=== PATIENT | male | born 1960 | race Caucasian/White ===

== ENCOUNTER 2017-04-10 16:06 | Emergency (ER) | payer BC, OTHER ==
[~2017-04-10] VITALS: Ht 177.8 cm; Wt 62.1 kg
[~2017-04-10 16:06] MED LIST: CARB200T14 PO; FURO10S PO; LISI-357 PO; METO25 PO; TRAM50 PO
[2017-04-10 16:10] VITALS: BP 143/83; PULSE 84; RESP 18; TEMP 97.4; O2SAT 99
[2017-04-10] MEDS ORDERED: METO25TA3 PO (16:26)
[2017-04-10] MEDS ORDERED: LEDI1TAB PO (16:26)
[2017-04-10] MEDS ORDERED: FURO40TA PO (16:26)
[2017-04-10] MEDS ORDERED: GABA600T PO (16:26)
[2017-04-10] MEDS ORDERED: LISI-519 PO (16:26)
--- NOTE | 2017-04-10 16:29 | PD ---
HPI Chief Complaint: Cold / Flu Symptoms Time Seen by Provider: 16:22 Travel History International Travel<30 days: No Contact w/Intl Traveler<30days: No Traveled to known affect area: No History of Present Illness HPI 57-year-old male presents to the emergency room for evaluation of sore throat, laryngitis, cough, congestion for the past 1.5 weeks. Patient states symptoms started off as a sore throat and progressed since then. He took his temperature at onset of symptoms but states he never had a temperature. He has had chills and sweats. He states cough is productive of green sputum. Patient has been eating and drinking okay but has a mildly decreased appetite. Patient has not been taken anything [id number] for his symptoms. [facility] Past Medical History Hx Anticoagulant Therapy: No Cardiovascular Problems: Yes (HTN, ENDOCARDITIS) Diabetes: No Diminished Hearing: No Hepatitis: Yes (HEP C) Herniated Disk: Yes (HAD BULGING DISC ONLY) Kidney Stones: Yes Social History Alcohol Use: No Tobacco Use: Yes (10/25 ppd) Substance Use: Yes (heroin abuse, IVDU) Allergies-Medications (Allergen,Severity, Reaction): Coded Allergies: No Known Allergies (Unverified , 04/10/17) Reported Meds & Prescriptions Reported Meds & Active Scripts Active Reported Furosemide 40 Mg Tab 40 Mg PO DAILY Gabapentin 600 Mg Tab 600 Mg PO TID Metoprolol Tartrate 25 Mg Tab 20 Mg PO DAILY Lisinopril 5 Mg Tab 5 Mg PO DAILY Harvoni 90-400 mg Tablet (Ledipasvir/Sofosbuvir) 1 Each Tablet PO DAILY Review of Systems Except as stated in HPI: all other systems reviewed are Neg Physical Exam Narrative GENERAL: Well-nourished, well-developed male in no acute distress. Afebrile. Ambulatory. SKIN: Focused skin assessment warm/dry. HEAD: Normocephalic. EYES: No scleral icterus. No injection or drainage. ENT: Mucosa pink and moist. No erythema or exudates. No uvular edema. No uvular , palatal, or tonsillar deviation. Airway patent. Nasal turbinates appear normal without nasal blood, purulent drainage or septal hematoma. EARS: Bilateral pinnae and external canals appear within normal limits. Bilateral tympanic membranes without erythema, dullness or perforation. NECK: Supple, trachea midline. No JVD or lymphadenopathy. CARDIOVASCULAR: Regular rate and rhythm without murmurs, gallops, or rubs. RESPIRATORY: Breath sounds equal bilaterally. No accessory muscle use. No crackles, rales, wheezes, or rhonchi. Data Data Last Documented VS Vital Signs Date Time Temp Pulse Resp B/P Pulse Ox O2 Delivery O2 Flow Rate FiO2 04/10/17 16:10 97.4 84 18 143/83 99 Orders Chest, Pa & Lat (04/10/17 ) MDM Medical Decision Making Medical Screen Exam Complete: Yes Emergency Medical Condition: Yes Medical Record Reviewed: Yes Differential Diagnosis Cough, strep, bronchitis, pneumonia Narrative Course 57-year-old male presents to the emergency room for evaluation of productive cough, sore throat, and congestion for the past 1.5 weeks. Patient denies history of fever. He is afebrile and well-appearing in the emergency room. Vital signs stable. No evidence of bacterial infection in the ears, nose, or throat. Lungs sounds clear and equal bilaterally. Chest x-ray is negative. This is viral upper respiratory infection. Patient was discharged with Tessalon Perles and told to follow-up with a primary care physician or return for worsening symptoms. He understands and agrees to plan. Diagnosis Primary Impression: Upper respiratory infection Qualified Code: J00 - Acute nasopharyngitis Referrals: Primary Care Physician Patient Instructions: General Instructions, Upper Respiratory Infection (ED) Additional Instructions: Rest and drink plenty of fluids. Take Tessalon Perles as directed, as needed for cough. Follow-up with a primary care physician. Return to the emergency room for worsening symptoms. Med/Other Pt SpecificInfo: Prescription(s) given Scripts Benzonatate (Tessalon Perles)100 Mg [id number] Mg PO TID PRN (COUGH) 7 Days Ref 0 Prov:Micaela Woodruff MD 04/10/17 Disposition: 01 DISCHARGE HOME Condition: Stable Sissy Killian Apr 10, 2017 16:28
--- NOTE | 2017-04-10 16:52 | RADHPO ---
EXAM DATE/TIME: 04/10/2017 16:34 [facility] COMPARISON: No previous studies available for comparison. INDICATIONS : Productive cough and congestion for over one week. MEDICAL HISTORY : Hypertension. SURGICAL HISTORY : None. ENCOUNTER: Initial ACUITY: 1 week PAIN SCORE: 0/10 LOCATION: Bilateral chest FINDINGS: PA and lateral views of the chest demonstrate the lungs to be symmetrically aerated without evidence of mass, infiltrate or effusion. The cardiomediastinal contours are unremarkable. Osseous structure s are intact. CONCLUSION: 1. No acute cardiopulmonary findings. Shreyas Plummer MD on April 10, 2017 at 16:47 Board Certified Radiologist. This report was verified electronically.
[2017-04-10] MEDS ORDERED: BENZ100 PO (16:59)
== END 2017-04-10 17:07 | disposition home or self-care (01) ==
LOC: PHEFT 16:06
DX: J06.9 Acute upper respiratory infection, unspecified (principal); I10 Essential (primary) hypertension; I38 Endocarditis, valve unspecified; B19.20 Unspecified viral hepatitis C without hepatic coma; F17.210 Nicotine dependence, cigarettes, uncomplicated
CPT/HCPCS: 71020; 99283

== ENCOUNTER 2017-09-19 20:43 | Inpatient (IN) | payer OTHER, MEDICARE ==
[~2017-09-19] VITALS: Ht 175.3 cm; Wt 70.0 kg
[~2017-09-19 20:43] MED LIST changes: +BENZ100 PO; -CARB200T14 PO; -FURO10S PO; +FURO40TA PO; +GABA600T PO; +LEDI1TAB PO; -LISI-357 PO; +LISI-519 PO; -METO25 PO; +METO25TA3 PO; -TRAM50 PO
[2017-09-19 20:48] VITALS: BP 128/93; PULSE 106; RESP 20; TEMP 98.2; O2SAT 99
[2017-09-19] MEDS ORDERED: SODIUM CHLOR 0.9% 1000 ML INJ 1,000 ML IV SCH (20:57)
[2017-09-19] MEDS ORDERED: SODIUM CHLORIDE 0.9% FLUSH 10 ML FLUSH IV FLUSH PRN ×2 (21:00→22:45)
--- NOTE | 2017-09-19 21:06 | PD ---
HPI Chief Complaint: Wound/Suture/Staple Re-Check Time Seen by Provider: 20:57 Travel History International Travel<30 days: No Contact w/Intl Traveler<30days: No Traveled to known affect area: No History of Present Illness HPI Patient is 57-year-old male who presents to emergency room complaints of groin bleeding status post cardiac catheterization today. Patient reports that he has history of endocarditis, reports that he needs a mitral valve replacement, reports that today, his research center partner, Dr. William Stringer performed a diagnostic right and left heart catheterization. He did have this procedure at 12 PM this afternoon. Patient reports that this catheterization was only diagnostic, there was no interventions today. Reports that his only complications after the procedure was bleeding. Reports that his groin would not stop bleeding after the procedure and they kept him at [facility] until 4pm when bleeding did stop. Patient reports that when he went home, he noticed a big bump and bruising to his groin. Patient concerned that he may still be bleeding. Patient reports that he currently is not on any anticoagulants at this time. Denies sensation of lightheadedness or dizziness. Patient did try calling his research center partner kathi to review his symptoms, reports that he did not get a call back. PFSH Past Medical History Hx Anticoagulant Therapy: No Cardiovascular Problems: Yes Diabetes: No Diminished Hearing: No Hepatitis: Yes (HEP C) Herniated Disk: Yes (HAD BULGING DISC ONLY) Kidney Stones: Yes Social History Alcohol Use: No Tobacco Use: Yes (10/25 ppd) Substance Use: No (history of heroin abuse, IVDU; denies x 1 year (stated )) Allergies-Medications (Allergen,Severity, Reaction): Coded Allergies: No Known Allergies (Unverified Adverse Reaction, Unknown, 09/19/17) Reported Meds & Prescriptions Reported Meds & Active Scripts Active Tessalon Perles (Benzonatate) 100 Mg Cap 100 Mg PO TID PRN 7 Days Reported Furosemide 40 Mg Tab 40 Mg PO DAILY Gabapentin 600 Mg Tab 600 Mg PO TID Metoprolol Tartrate 25 Mg Tab 20 Mg PO DAILY Lisinopril 5 Mg Tab 5 Mg PO DAILY Review of Systems General / Constitutional: No: Fever Eyes: No: Visual changes HENT: No: Headaches Cardiovascular: No: Chest Pain or Discomfort Respiratory: No: Shortness of Breath Gastrointestinal: No: Abdominal Pain Genitourinary: No: Dysuria Musculoskeletal: No: Pain Skin: No Rash Neurologic: No: Weakness Psychiatric: No: Depression Endocrine: No: Polydipsia Hematologic/Lymphatic: No: Easy Bruising Physical Exam Narrative GENERAL: moderate distress SKIN: Focused skin assessment warm/dry. HEAD: Atraumatic. Normocephalic. EYES: Pupils equal and round. No scleral icterus. No injection or drainage. ENT: No nasal bleeding or discharge. Mucous membranes pink and moist. NECK: Trachea midline. No JVD. CARDIOVASCULAR: Regular rate and rhythm. No murmur appreciated. RESPIRATORY: No accessory muscle use. Clear to auscultation. Breath sounds equal bilaterally. GASTROINTESTINAL: Abdomen soft, non-tender, nondistended. Hepatic and splenic margins not palpable. Patient with hematoma to the right groin, patient with no external bleeding at this time. Patient has appropriate femoral pulses MUSCULOSKELETAL: No obvious deformities. No clubbing. No cyanosis. No edema. NEUROLOGICAL: Awake and alert. No obvious cranial nerve deficits. Motor grossly within normal limits. Normal speech. PSYCHIATRIC: Appropriate mood and affect; insight and judgment normal. Data Data Last Documented VS Vital Signs Date Time Temp Pulse Resp B/P (MAP) Pulse Ox O2 Delivery O2 Flow Rate FiO2 09/19/17 22:27 95 18 125/87 (100) 98 Room Air 09/19/17 20:48 98.2 Orders Orders Complete Blood Count With Diff (09/19/17 20:57) Comprehensive Metabolic Panel (09/19/17 20:57) Prothrombin Time / Inr (Pt) (09/19/17 20:57) Act Partial Throm Time (Ptt) (09/19/17 20:57) Ct Abd/Pel W Iv Contrast(Rout) (09/19/17 20:57) Iv Access Insert/Monitor (09/19/17 20:57) Ecg Monitoring (09/19/17 20:57) Oximetry (09/19/17 20:57) NPO (09/19/17 20:57) Sodium Chlor 0.9% 1000 Ml Inj (Ns 1000 M (09/19/17 20:57) Sodium Chloride 0.9% Flush (Ns Flush) (09/19/17 21:00) Type And Screen (09/19/17 20:57) Morphine Inj (Morphine Inj) (09/19/17 21:30) Sodium Chlor 0.9% 1000 Ml Inj (Ns 1000 M (09/19/17 21:45) Iohexol 350 Inj (Omnipaque 350 Inj) (09/19/17 21:53) Consult Vascular Surgery (09/19/17 ) Labs Laboratory Tests Test 09/19/17 21:15 White Blood Count 14.5 TH/MM3 Red Blood Count 4.29 MIL/MM3 Hemoglobin 13.1 GM/DL Hematocrit 38.9 % Mean Corpuscular Volume 90.6 FL Mean Corpuscular Hemoglobin 30.5 PG Mean Corpuscular Hemoglobin Concent 33.7 % Red Cell Distribution Width 12.9 % Platelet Count 194 TH/MM3 Mean Platelet Volume 7.2 FL Neutrophils (%) (Auto) 79.5 % Lymphocytes (%) (Auto) 12.6 % Monocytes (%) (Auto) 6.1 % Eosinophils (%) (Auto) 1.2 % Basophils (%) (Auto) 0.6 % Neutrophils # (Auto) 11.5 TH/MM3 Lymphocytes # (Auto) 1.8 TH/MM3 Monocytes # (Auto) 0.9 TH/MM3 Eosinophils # (Auto) 0.2 TH/MM3 Basophils # (Auto) 0.1 TH/MM3 CBC Comment DIFF FINAL Differential Comment Prothrombin Time 11.3 SEC Prothromb Time International Ratio 1.0 RATIO Activated Partial Thromboplast Time 29.3 SEC Blood Urea Nitrogen 12 MG/DL Creatinine 1.00 MG/DL Random Glucose 133 MG/DL Total Protein 6.6 GM/DL Albumin 3.4 GM/DL Calcium Level 8.3 MG/DL Alkaline Phosphatase 86 U/L Aspartate Amino Transf (AST/SGOT) 12 U/L Alanine Aminotransferase (ALT/SGPT) 18 U/L Total Bilirubin 0.4 MG/DL Sodium Level 140 MEQ/L Potassium Level 4.0 MEQ/L Chloride Level 108 MEQ/L Carbon Dioxide Level 22.7 MEQ/L Anion Gap 9 MEQ/L Estimat Glomerular Filtration Rate 77 ML/MIN [facility] Medical Decision Making Medical Screen Exam Complete: Yes Emergency Medical Condition: Yes Medical Record Reviewed: Yes Interpretation(s) EKG at 2215: NSR at 69bpm, qt/qtc: 370/388, no acute st or t wave changes, normal axis Vital Signs Date Time Temp Pulse Resp B/P (MAP) Pulse Ox O2 Delivery O2 Flow Rate FiO2 09/19/17 20:48 98.2 106 20 128/93 (105) 99 Differential Diagnosis retroperitoneal bleed, aneurysm, postop hematoma, anemia Narrative Course During the course of the patients emergency department visit, the patients history, examination, and differential diagnosis were reviewed with the patient. The patient was placed on a playground monitor with oximetry and frequent blood pressure monitoring. The patient had an IV access obtained and blood work sent for analysis. The patient was initially provided IVF. CT of abdomen and pelvis ordered to evaluate for possible retroperitoneal bleed/aneurysm The patients laboratory studies were reviewed and remarkable for: CBC & BMP Diagram 09/19/17 21:15 Total Protein 6.6, Albumin 3.4, Calcium Level 8.3 L, Alkaline Phosphatase 86, Aspartate Amino Transf (AST/SGOT) 12 L, Alanine Aminotransferase (ALT/SGPT) 18, Total Bilirubin 0.4 INR 1.0, HGB reassuring at 13.1 Radiology studies were reviewed and remarkable for: CT of abdomen and pelvis with IV contrast: Right inguinal pseudoaneurysm measuring 1.4 cm in diameter just anterior to the common femoral artery. There is an associated 3.7 x 3.5 cm hematoma medially extending to the right inguinal canal. All findings reviewed with patient in detail, plan to admit him to the hospital for observation Call made to Vascular surgeon Dr. Oropeza, will see patient at [place] tomorrow for intervention of pseudoaneurysm Diagnosis Primary Impression: Hematoma of groin Qualified Codes: S30.1XXA - Contusion of abdominal wall, initial encounter Additional Impression: Postoperative groin pseudoaneurysm Qualified Codes: T81.719A - Complication of unspecified artery following a procedure, not elsewhere classified, initial encounter; I72.8 - Aneurysm of other specified arteries Admitting Information Admitting Physician Requests: Observation Carly Zhou DO Sep 19, 2017 21:06
[2017-09-19 21:23] LABS: AUTOMATED NEUTROPHIL # 11.5 TH/MM3 (1.8-7.7); BASOPHIL # 0.1 TH/MM3 (0-0.2); BASOPHIL % 0.6 % (0.0-2.0); EOSINOPHIL # 0.2 TH/MM3 (0-0.4); EOSINOPHIL % 1.2 % (0.0-4.0); HEMATOCRIT 38.9 % (39.0-51.0); HEMO FLAGS DIFF FINAL; LYMPH % 12.6 % (9.0-44.0); LYMPHOCYTE # 1.8 TH/MM3 (1.0-4.8); MEAN CELL VOLUME 90.6 FL (80.0-100.0); MEAN CORPUSCULAR HEMOGLOBIN 30.5 PG (27.0-34.0); MEAN CORPUSCULAR HGB CONC 33.7 % (32.0-36.0); MONO % 6.1 % (0.0-8.0); NEUT % 79.5 % (16.0-70.0); PLATELET COUNT 194 TH/MM3 (150-450); RED BLOOD COUNT 4.29 MIL/MM3 (4.50-5.90); RED CELL DISTRIBUTION WIDTH 12.9 % (11.6-17.2); WHITE BLOOD COUNT 14.5 TH/MM3 (4.0-11.0)
[2017-09-19] MEDS ORDERED: MORPHINE SULFATE 4 MG/ML INJ IV PUSH ONE (21:30)
[2017-09-19 21:31] LABS: CHLORIDE 108 MEQ/L (98-107); SODIUM (NA) 140 MEQ/L (136-145)
[2017-09-19 21:35] LABS: ANION GAP 9 MEQ/L (5-15); BICARBONATE 22.7 MEQ/L (21.0-32.0); BLOOD UREA NITROGEN 12 MG/DL (7-18)
[2017-09-19 21:37] LABS: APTT (PATIENT) 29.3 SEC (24.3-30.1); PROTHROMBIN TIME - PATIENT 11.3 SEC (9.8-11.6)
[2017-09-19 21:38] LABS: ALT (GPT) 18 U/L (12-78); AST (GOT) 12 U/L (15-37); GLOMERULAR FILTRATION RATE 77 ML/MIN (>89)
[2017-09-19 21:40] LABS: TOTAL BILIRUBIN ADULT 0.4 MG/DL (0.2-1.0)
[2017-09-19 21:41] LABS: ALKALINE PHOSPHATASE 86 U/L (45-117)
[2017-09-19 21:42] VITALS: BP 143/79; PULSE 90; RESP 20; O2SAT 100
[2017-09-19] MEDS ORDERED: SODIUM CHLOR 0.9% 1000 ML INJ 1,000 ML IV ONE (21:45)
[2017-09-19] MEDS ORDERED: IOHEXOL 350 MG/ML 10 ML VIAL (for RAD DIAG) IVCONTRAST ONE (21:53)
--- NOTE | 2017-09-19 22:19 | RADRPT ---
EXAM DATE/TIME: 09/19/2017 21:46 [facility] COMPARISON: CT ABDOMEN & PELVIS W CONTRAST, December 23, 2015, 22:27. INDICATIONS : Right groin hematoma and pain status post cardiac catheterization today. IV CONTRAST: 100 cc Omnipaque 350 (iohexol) IV ORAL CONTRAST: No oral contrast ingested. RADIATION DOSE: 10.03 CTDIvol (mGy) MEDICAL HISTORY : Renal calculi. Hepatitis C. SURGICAL HISTORY : Cardiac catheterization. ENCOUNTER: Initial ACUITY: 1 day PAIN SCALE: 8/10 LOCATION: Right inguinal TECHNIQUE: Volumetric scanning of the abdomen and pelvis was performed. Using automated exposure control and ad justment of the mA and/or kV according to patient size, radiation dose was kept as low as reasonably achievable to obtain optimal diagnostic quality images. DICOM format image data is available electro nically for review and comparison. FINDINGS: LOWER LUNGS: The visualized lower lungs are clear. LIVER: Homogeneous density without lesion. There is no dilation of the biliary tree. No calcified gallston es. SPLEEN: Normal size without lesion. PANCREAS: Within normal limits. KIDNEYS: Normal in size and shape. There is no mass, stone or hydronephrosis. ADRENAL GLANDS: Within normal limits. VASCULAR: There is no aortic aneurysm. Right inguinal pseudoaneurysm measuring 1.4 cm in diameter. BOWEL/MESENTERY: The stomach, small bowel, and colon demonstrate no acute abnormality. There is no free intraperitone al air or fluid. ABDOMINAL WALL: Within normal limits. RETROPERITONEUM: There is no lymphadenopathy. BLADDER: No wall thickening or mass. REPRODUCTIVE: Within normal limits. INGUINAL: Right inguinal pseudoaneurysm measuring 1.4 cm in diameter just anterior to the common femoral artery . Associated 3.7 x 3.5 cm hematoma medially extending into the right inguinal canal. MUSCULOSKELETAL: Mild dextroscoliosis of the thoracolumbar spine. CONCLUSION: 1. CT confirms the presence of a 1.4 cm pseudoaneurysm just anterior to the right common femoral davide ry with an associated right inguinal 3.7 x 3.5 cm hematoma medially extending towards the right ingui nal canal. 2. No acute intraperitoneal or pelvic process. Rick Enamorado MD on September 19, 2017 at 22:12 Board Certified Radiologist. This report was verified electronically.
[2017-09-19 22:27] VITALS: BP 125/87; PULSE 95; RESP 18; O2SAT 98
[2017-09-19] MEDS ORDERED: NALOXONE HCL 0.4 MG/ML AMP IV PUSH PRN (22:45)
[2017-09-19 23:37] VITALS: BP 140/85; PULSE 85; RESP 18; TEMP 98.2; O2SAT 98
[2017-09-19 23:45] VITALS: BP 137/79; PULSE 78; RESP 20; TEMP 97.9; O2SAT 100
[2017-09-20 00:13] VITALS: PULSE 71
[2017-09-20] MEDS ORDERED: ZANA2CAP PO (00:16)
[2017-09-20] MEDS ORDERED: GABA800T PO (00:18)
[2017-09-20] MEDS: MORPHINE SULFATE 2 MG/ML INJ IV PUSH PRN ×7 (01:06→23:12)
[2017-09-20 04:30] VITALS: BP 120/65; PULSE 78; RESP 20; TEMP 98; O2SAT 97
[2017-09-20 06:06] LABS: AUTOMATED NEUTROPHIL # 6.7 TH/MM3 (1.8-7.7); BASOPHIL # 0.1 TH/MM3 (0-0.2); BASOPHIL % 0.6 % (0.0-2.0); EOSINOPHIL # 0.2 TH/MM3 (0-0.4); EOSINOPHIL % 2.4 % (0.0-4.0); HEMATOCRIT 35.1 % (39.0-51.0); HEMO FLAGS DIFF FINAL; LYMPH % 21.4 % (9.0-44.0); LYMPHOCYTE # 2.2 TH/MM3 (1.0-4.8); MEAN CORPUSCULAR HEMOGLOBIN 29.7 PG (27.0-34.0); MONO % 9.3 % (0.0-8.0); NEUT % 66.3 % (16.0-70.0); PLATELET COUNT 178 TH/MM3 (150-450); WHITE BLOOD COUNT 10.2 TH/MM3 (4.0-11.0)
[2017-09-20 06:22] LABS: POTASSIUM 4.1 MEQ/L (3.5-5.1)
[2017-09-20 06:27] LABS: BICARBONATE 24.4 MEQ/L (21.0-32.0)
[2017-09-20 08:00] VITALS: BP 118/67; PULSE 77; RESP 16; TEMP 97.2; O2SAT 97
[2017-09-20] MEDS: SODIUM CHLORIDE 0.9% FLUSH 10 ML FLUSH IV FLUSH SCH ×2 (08:30→21:00)
--- NOTE | 2017-09-20 08:56 | PD.CAR.PN ---
CVT Progress Note Subjective/Hospital Course: Patient with small pseudoaneurysm of the right groin Will inject thrombin today in the radiology suite Full consult to follow Chintan Chen Objective: Vital Signs Date Time Temp Pulse Resp B/P (MAP) Pulse Ox O2 Delivery O2 Flow Rate FiO2 09/20/17 04:30 98.0 78 20 120/65 (83) 97 09/20/17 00:13 71 09/19/17 23:45 97.9 78 20 137/79 (98) 100 09/19/17 23:38 09/19/17 23:37 98.2 85 18 140/85 (103) 98 Room Air 09/19/17 22:27 95 18 125/87 (100) 98 Room Air 09/19/17 21:42 90 20 143/79 (100) 100 Room Air 09/19/17 20:48 98.2 106 20 128/93 (105) 99 Labs: Laboratory Tests Test 09/19/17 21:15 09/20/17 05:38 White Blood Count 14.5 TH/MM3 (4.0-11.0) 10.2 TH/MM3 (4.0-11.0) Red Blood Count 4.29 MIL/MM3 (4.50-5.90) 3.90 MIL/MM3 (4.50-5.90) Hemoglobin 13.1 GM/DL (13.0-17.0) 11.6 GM/DL (13.0-17.0) Hematocrit 38.9 % (39.0-51.0) 35.1 % (39.0-51.0) Mean Corpuscular Volume 90.6 FL (80.0-100.0) 90.0 FL (80.0-100.0) Mean Corpuscular Hemoglobin 30.5 PG (27.0-34.0) 29.7 PG (27.0-34.0) Mean Corpuscular Hemoglobin Concent 33.7 % (32.0-36.0) 33.0 % (32.0-36.0) Red Cell Distribution Width 12.9 % (11.6-17.2) 13.0 % (11.6-17.2) Platelet Count 194 TH/MM3 (150-450) 178 TH/MM3 (150-450) Mean Platelet Volume 7.2 FL (7.0-11.0) 7.6 FL (7.0-11.0) Neutrophils (%) (Auto) 79.5 % (16.0-70.0) 66.3 % (16.0-70.0) Lymphocytes (%) (Auto) 12.6 % (9.0-44.0) 21.4 % (9.0-44.0) Monocytes (%) (Auto) 6.1 % (0.0-8.0) 9.3 % (0.0-8.0) Eosinophils (%) (Auto) 1.2 % (0.0-4.0) 2.4 % (0.0-4.0) Basophils (%) (Auto) 0.6 % (0.0-2.0) 0.6 % (0.0-2.0) Neutrophils # (Auto) 11.5 TH/MM3 (1.8-7.7) 6.7 TH/MM3 (1.8-7.7) Lymphocytes # (Auto) 1.8 TH/MM3 (1.0-4.8) 2.2 TH/MM3 (1.0-4.8) Monocytes # (Auto) 0.9 TH/MM3 (0-0.9) 1.0 TH/MM3 (0-0.9) Eosinophils # (Auto) 0.2 TH/MM3 (0-0.4) 0.2 TH/MM3 (0-0.4) Basophils # (Auto) 0.1 TH/MM3 (0-0.2) 0.1 TH/MM3 (0-0.2) CBC Comment DIFF FINAL DIFF FINAL Differential Comment Prothrombin Time 11.3 SEC (9.8-11.6) Prothromb Time International Ratio 1.0 RATIO Activated Partial Thromboplast Time 29.3 SEC (24.3-30.1) Blood Urea Nitrogen 12 MG/DL (7-18) 9 MG/DL (7-18) Creatinine 1.00 MG/DL (0.60-1.30) 0.85 MG/DL (0.60-1.30) Random Glucose 133 MG/DL (74-106) 91 MG/DL (74-106) Total Protein 6.6 GM/DL (6.4-8.2) Albumin 3.4 GM/DL (3.4-5.0) Calcium Level 8.3 MG/DL (8.5-10.1) 7.7 MG/DL (8.5-10.1) Alkaline Phosphatase 86 U/L (45-117) Aspartate Amino Transf (AST/SGOT) 12 U/L (15-37) Alanine Aminotransferase (ALT/SGPT) 18 U/L (12-78) Total Bilirubin 0.4 MG/DL (0.2-1.0) Sodium Level 140 MEQ/L (136-145) 143 MEQ/L (136-145) Potassium Level 4.0 MEQ/L (3.5-5.1) 4.1 MEQ/L (3.5-5.1) Chloride Level 108 MEQ/L (98-107) 111 MEQ/L (98-107) Carbon Dioxide Level 22.7 MEQ/L (21.0-32.0) 24.4 MEQ/L (21.0-32.0) Anion Gap 9 MEQ/L (5-15) 8 MEQ/L (5-15) Estimat Glomerular Filtration Rate 77 ML/MIN (>89) 93 ML/MIN (>89) Result Diagram: 09/20/17 0538 09/20/17 0538 Debora Oropeza MD Sep 20, 2017 08:56
[2017-09-20 12:00] VITALS: BP 143/77; PULSE 87; RESP 18; TEMP 97.8; O2SAT 99
[2017-09-20] MEDS ORDERED: BENZONATATE 100 MG CAP PO PRN (13:30)
[2017-09-20] MEDS ORDERED: METOPROLOL TARTRATE 25 MG TAB PO SCH (13:30)
--- NOTE | 2017-09-20 13:35 | HHI.HP ---
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 He is in the process of having this evaluated by his yard worker. He had a cardiac catheterization done at another facility and had some excessive bleeding post procedure per his report and when he got home he had increased bleeding and bruising. Came to the emergency room with some swelling and came to the medical floor for observation overnight. He is not taking any blood thinners. He does have a history of endocarditis in the past and had some valvular dysfunction likely the mitral valve per his report and is expected to have some valvular surgery in the future. Here he has not had any further bleeding. He notes no fevers or chills. ID nausea or vomiting. Does report some vague discomfort in the level of the groin with associated edema and bruising visible. Review of Systems Constitutional: DENIES: Diaphoretic episodes, Fatigue, Fever, Weight gain, Weight loss, Chills, Dizziness, Change in appetite, Night Sweats Endocrine: DENIES: Heat/cold intolerance, Polydipsia, Polyuria, Polyphagia Eyes: DENIES: Blurred vision, Diplopia, Eye inflammation, Eye pain, Vision loss , Photosensitivity, Double Vision Ears, nose, mouth, throat: DENIES: Tinnitus, Hearing loss, Vertigo, Nasal discharge, Oral lesions, Throat pain, Hoarseness, Ear Pain, Running Nose, Epistaxis, Sinus Pain, Toothache, Odynophagia Cardiovascular: DENIES: Chest pain, Palpitations, Syncope, Dyspnea on Exertion , PND, Lower Extremity Edema, Orthopnea, Claudication Gastrointestinal: DENIES: Abdominal pain, Black stools, Bloody stools, Constipation, Diarrhea, Nausea, Vomiting, Difficulty Swallowing, Anorexia Musculoskeletal: DENIES: Joint pain, Muscle aches, Stiffness, Joint Swelling, Back pain, Neck pain Integumentary: DENIES: Abnormal pigmentation, Nail changes, Pruritus, Rash Hematologic/lymphatic: COMPLAINS OF: Bruising, DENIES: Lymphadenopathy Immunologic/allergic: DENIES: Eczema, Urticaria Neurologic: COMPLAINS OF: Tremor, DENIES: Abnormal gait, Headache, Localized weakness, Paresthesias, Seizures, Speech Problems, Poor Balance Psychiatric: DENIES: Anxiety, Confusion, Mood changes, Depression, Hallucinations, Agitation, Suicidal Ideation, Homicidal Ideation, Delusions Except as stated in HPI: all other systems reviewed are Neg Past Family Social History Past Medical History Hypertension Valvular disease And leg tremors 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 Hepatitis C Past Surgical History Cardiac catheterization Back surgery Reported Medications Reviewed in the EMR Allergies: Coded Allergies: No Known Allergies (Unverified Allergy, Unknown, 09/19/17) Active Ordered Medications Reviewed in the EMR Family History Hypertension Social History Previous IV drug user No alcohol patient smokes half a pack a day Physical Exam Vital Signs Vital Signs Date Time Temp Pulse Resp B/P (MAP) Pulse Ox O2 Delivery O2 Flow Rate FiO2 09/20/17 12:00 97.8 87 18 143/77 (99) 99 09/20/17 08:00 97.2 77 16 118/67 (84) 97 09/20/17 04:30 98.0 78 20 120/65 (83) 97 09/20/17 00:13 71 09/19/17 23:45 97.9 78 20 137/79 (98) 100 09/19/17 23:38 09/19/17 23:37 98.2 85 18 140/85 (103) 98 Room Air 09/19/17 22:27 95 18 125/87 (100) 98 Room Air 09/19/17 21:42 90 20 143/79 (100) 100 Room Air 09/19/17 20:48 98.2 106 20 128/93 (105) 99 Physical Exam GENERAL: This is a well-nourished, well-developed patient, in no apparent distress. SKIN: No rashes, lesions. Cool and dry. There is a large amount of right groin ecchymosis and right scrotal and penile ecchymoses HEAD: Atraumatic. Normocephalic. No temporal or scalp tenderness. EYES: Pupils equal round and reactive. Extraocular motions intact. No scleral icterus. No injection or drainage. ENT: Nose without bleeding, purulent drainage or septal hematoma. Throat without erythema, tonsillar hypertrophy or exudate. Uvula midline. Airway patent. NECK: Trachea midline. No JVD or lymphadenopathy. Supple, nontender, no meningeal signs. CARDIOVASCULAR: Regular rate and rhythm with a significant systolic murmur, and no appreciable gallops, or rubs. RESPIRATORY: Clear to auscultation. Breath sounds equal bilaterally. No wheezes , rales, or rhonchi. GASTROINTESTINAL: Abdomen soft, non-tender, nondistended. No hepato-splenomegaly , or palpable masses. No guarding. MUSCULOSKELETAL: Extremities without clubbing, cyanosis, or edema. No joint tenderness, effusion, or edema noted. No calf tenderness. Negative Homans sign bilaterally. NEUROLOGICAL: Awake and alert. Cranial nerves II through XII intact. Motor and sensory grossly within normal limits. Five out of 5 muscle strength in all muscle groups. Normal speech. Laboratory Laboratory Tests Test 09/19/17 21:15 09/20/17 05:38 White Blood Count 14.5 10.2 Red Blood Count 4.29 3.90 Hemoglobin 13.1 11.6 Hematocrit 38.9 35.1 Mean Corpuscular Volume 90.6 90.0 Mean Corpuscular Hemoglobin 30.5 29.7 Mean Corpuscular Hemoglobin Concent 33.7 33.0 Red Cell Distribution Width 12.9 13.0 Platelet Count 194 178 Mean Platelet Volume 7.2 7.6 Neutrophils (%) (Auto) 79.5 66.3 Lymphocytes (%) (Auto) 12.6 21.4 Monocytes (%) (Auto) 6.1 9.3 Eosinophils (%) (Auto) 1.2 2.4 Basophils (%) (Auto) 0.6 0.6 Neutrophils # (Auto) 11.5 6.7 Lymphocytes # (Auto) 1.8 2.2 Monocytes # (Auto) 0.9 1.0 Eosinophils # (Auto) 0.2 0.2 Basophils # (Auto) 0.1 0.1 CBC Comment DIFF FINAL DIFF FINAL Differential Comment Prothrombin Time 11.3 Prothromb Time International Ratio 1.0 Activated Partial Thromboplast Time 29.3 Blood Urea Nitrogen 12 9 Creatinine 1.00 0.85 Random Glucose 133 91 Total Protein 6.6 Albumin 3.4 Calcium Level 8.3 7.7 Alkaline Phosphatase 86 Aspartate Amino Transf (AST/SGOT) 12 Alanine Aminotransferase (ALT/SGPT) 18 Total Bilirubin 0.4 Sodium Level 140 143 Potassium Level 4.0 4.1 Chloride Level 108 111 Carbon Dioxide Level 22.7 24.4 Anion Gap 9 8 Estimat Glomerular Filtration Rate 77 93 Result Diagram: 09/20/17 0538 09/20/17 0538 Imaging Last Impressions Abdomen/Pelvis CT 09/19/172056 Signed Impressions: Service Date/Time: Tuesday, September 19, 2017 21:46 - CONCLUSION: 1. CT confirms the presence of a 1.4 cm pseudoaneurysm just anterior to the right common femoral artery with an associated right inguinal 3.7 x 3.5 cm hematoma medially extending towards the right inguinal canal. 2. No acute intraperitoneal or pelvic process. MD Dominic Obrien VTE Risk Assessment Dominic VTE Risk Assessment: Mod/High Risk (score >= 2) VTE Pharm Contraindication: Postop bleeding Caprini Risk Assessment Model Point Value = 1 Point Value = 2 Point Value = 3 Point Value = 5 Age 41-60 Minor surgery BMI > 25 kg/m2 Swollen legs Varicose veins or History of unexplained or recurrent spontaneous Oral contraceptives or hormone replacement Sepsis (< 1 month) Serious lung disease, including pneumonia (< 1 month) Abnormal pulmonary function Acute myocardial infarction Congestive heart failure (< 1 month) History of inflammatory bowel disease Medical patient at bed rest Age 61-74 Arthroscopic surgery Major open surgery (> 45 min) Laparoscopic surgery (> 45 min) Malignancy Confined to bed (> 72 hours) Immobilizing plaster cast Central venous access Age >= 75 History of VTE Family history of VTE Factor V Leiden Prothrombin [id number] Lupus anticoagulant Anticardiolipin antibodies Elevated serum homocysteine Heparin-induced thrombocytopenia Other congenital or acquired thrombophilia Stroke (< 1 month) Elective arthroplasty Hip, pelvis, or leg fracture Acute spinal cord injury (< 1 month) Prophylaxis Regimen Total Risk Factor Score Risk Level Prophylaxis Regimen 0-1 Low Early ambulation 2 Moderate Order ONE of the following: *Sequential Compression Device (SCD) *Heparin 5000 units SQ BID 3-4 Higher Order ONE of the following medications: *Heparin 5000 units SQ TID *Enoxaparin/Lovenox 40 mg SQ daily (WT < 150 kg, CrCl > 30 mL/min) *Enoxaparin/Lovenox 30 mg SQ daily (WT < 150 kg, CrCl > 10-29 mL/min) *Enoxaparin/Lovenox 30 mg SQ BID (WT < 150 kg, CrCl > 30 mL/min) AND/OR *Sequential Compression Device (SCD) 5 or more Highest Order ONE of the following medications: *Heparin 5000 units SQ TID (Preferred with Epidurals) *Enoxaparin/Lovenox 40 mg SQ daily (WT < 150 kg, CrCl > 30 mL/min) *Enoxaparin/Lovenox 30 mg SQ daily (WT < 150 kg, CrCl > 10-29 mL/min) *Enoxaparin/Lovenox 30 mg SQ BID (WT < 150 kg, CrCl > 30 mL/min) AND *Sequential Compression Device (SCD) Assessment and Plan Problem List: (1) Postoperative groin pseudoaneurysm ICD Code: T81.719A - Complication of unspecified artery following a procedure, not elsewhere classified, initial encounter; I72.8 - Aneurysm of other specified arteries Status: Acute Plan: Follow clinically For thrombin injection this afternoon. Intervention radiology (2) Mitral valve regurgitation ICD Code: I34.0 - Nonrheumatic mitral (valve) insufficiency Plan: Continue home medications Patient will continue with outpatient follow-up with his yard worker in [place] (3) Limb tremor ICD Code: R25.1 - Tremor, unspecified Plan: Continue Neurontin Stable Assessment and Plan like dc after procedure Discussed Condition With patient, rn Problem Qualifiers (1) Postoperative groin pseudoaneurysm: Qualified Codes: T81.719A - Complication of unspecified artery following a procedure, not elsewhere classified, initial encounter; I72.8 - Aneurysm of other specified arteries Mary Bravo MD Sep 20, 2017 13:35
[2017-09-20] MEDS ORDERED: PILL SPLITTER OTHER PRN (13:45)
[2017-09-20] MEDS: FUROSEMIDE 40 MG TAB PO SCH ×2 (14:19→14:22)
[2017-09-20] MEDS: LISINOPRIL 5 MG TAB PO SCH (14:20)
--- NOTE | 2017-09-20 15:59 | HHI.DCPOC ---
Discharge Care Plan Diagnosis: (1) Postoperative groin pseudoaneurysm Goals to Promote Your Health * To prevent worsening of your condition and complications * To maintain your health at the optimal level Directions to Meet Your Goals Take your medications as prescribed Follow your dietary instruction Follow activity as directed Keep your appointments as scheduled Take your immunizations and boosters as scheduled If your symptoms worsen call your PCP, if no PCP go to Urgent Care Center or Emergency Room Smoking is Dangerous to Your Health. Avoid second hand smoke Call the 24-hour hour crisis hotline for domestic abuse at Mary Bravo MD Sep 20, 2017 15:59
[2017-09-20 16:00] VITALS: BP 133/74; PULSE 86; RESP 16; TEMP 97.2; O2SAT 97
[2017-09-20] MEDS ORDERED: THROMBIN (TOPICAL) 5,000 UNIT VIAL ONE (16:04)
--- NOTE | 2017-09-20 17:53 | PD.RAD ---
Post Procedure Progress Note Pre Procedure Diagnosis: (1) Postoperative groin pseudoaneurysm Post Procedure Diagnosis: (1) Postoperative groin pseudoaneurysm Procedure Date: Sep 20, 2017 Supervising Radiologist: Morro Scales Proceduralist/Assist: Kiley Eng, RT(R)(), Aysha Swanson RT(R) Estimated blood loss: none Anesthesia: Local Plan of Activity Patient to Unit: Nursing Unit Patient Condition: Good See PACS Report for procedural detail/treatment Vascular-Arterial Procedure Procedure 1 Procedure Site: Right Leg Procedure(s): Embolization Findings: right groin pseudoaneurysm Treament Area: thrombin injection treatment Morro Scales MD Sep 20, 2017 17:53
--- NOTE | 2017-09-20 18:08 | RADRPT ---
EXAM DATE/TIME: 09/20/2017 17:56 COMPARISON: No previous studies available for comparison. INDICATIONS : Patient with right femoral pseudoaneurysm in need of thrombin injection. MEDICAL HISTORY : Hepatitis C, HTN, HLD, Kidney stones, Herniated disc SURGICAL HISTORY : Cardiac catheterization ENCOUNTER: Initial ACUITY: 1 day PAIN SCORE: 6/10 LOCATION: Right groin IMAGE SERIES: 0 ACCESS SITE: Right Femoral artery PROCEDURE: The patient was placed supine on the procedure table. The right groin was prepped in sterile fashion. Full sterile technique was used, including cap, mask, sterile gloves and gown and a large sterile sh eet. Hand hygiene and 2% chlorhexidine and/or betadine/alcohol prep was utilized per protocol for cut aneous antisepsis with appropriate dry time for site. The skin and subcutaneous tissues were infiltra kelli with lidocaine solution. Ultrasound guidance was utilized using sterile gel and sterile probe cov er. Under direct ultrasound guidance, a 21 gauge micropuncture needle was introduced to the right benji in pseudoaneurysm. Under direct sonographic observation, thrombin injection treatment was performed w ith immediate complete thrombosis of the pseudoaneurysm. There is good preservation of flow in the un derlying common femoral artery as well as the proximal visualized SFA and profunda. The patient gustavo ated the procedure well and was returned to the hospital cespedes in stable condition. CONCLUSION: Uncomplicated ultrasound-guided thrombin injection therapy for right groin pseudoaneurysm as describe dKalie Scales MD on September 20, 2017 at 18:03 Board Certified Radiologist. This report was verified electronically.
[2017-09-20] MEDS: GABAPENTIN 400 MG CAP PO SCH (18:10)
[2017-09-20 20:00] VITALS: BP 144/75; PULSE 76; RESP 18; TEMP 98.8; O2SAT 100
[2017-09-20] MEDS ORDERED: ACETAMINOPHEN 325 MG TAB PO ONE (23:45)
[2017-09-21] VITALS: BP 124/73; PULSE 78; RESP 18; TEMP 98; O2SAT 98
[2017-09-21] MEDS: MORPHINE SULFATE 2 MG/ML INJ IV PUSH PRN ×3 (03:00→08:43)
[2017-09-21 04:00] VITALS: BP 128/74; PULSE 78; RESP 18; TEMP 98.2; O2SAT 99
[2017-09-21] MEDS: SODIUM CHLORIDE 0.9% FLUSH 10 ML FLUSH IV FLUSH SCH (07:57)
[2017-09-21 08:00] VITALS: BP 120/64; PULSE 88; RESP 14; TEMP 97.3; O2SAT 99
[2017-09-21] MEDS: LISINOPRIL 5 MG TAB PO SCH (08:29)
[2017-09-21] MEDS: GABAPENTIN 400 MG CAP PO SCH (08:29)
[2017-09-21] MEDS ORDERED: METOPROLOL TARTRATE 25 MG TAB PO SCH (09:00)
== END 2017-09-21 11:12 | disposition home or self-care (01) | DRG 921 ==
LOC: PHED 20:43 → PHEDA 22:40 → INTOOBSV 22:40 → OBSVTOIN 22:40 → PH3A 23:34
PROVIDERS: ADMIT Hospitalist; ATTEND Hospitalist
PROC: 3E053GC Introduction of Other Therapeutic Substance into Peripheral Artery, Percutaneous Approach (ICD-10-PCS; principal; 2017-09-20)
DX: I97.630 Postprocedural hematoma of a circulatory system organ or structure following a cardiac catheterization (principal); I72.8 Aneurysm of other specified arteries; I10 Essential (primary) hypertension; I34.0 Nonrheumatic mitral (valve) insufficiency; R25.1 Tremor, unspecified; B19.20 Unspecified viral hepatitis C without hepatic coma; F17.210 Nicotine dependence, cigarettes, uncomplicated; Z87.442 Personal history of urinary calculi; Y84.0 Cardiac catheterization as the cause of abnormal reaction of the patient, or of later complication, without mention of misadventure at the time of the procedure
CPT/HCPCS: 36002; 74177; 76942; 80048; 80053; 85025; 85610; 85730; 86850; 86900; 86901; 96361; 96374; J2270; J7030; Q9967

== ENCOUNTER 2017-10-03 03:19 | Inpatient (IN) | payer OTHER, MEDICARE ==
[~2017-10-03] VITALS: Ht 175.3 cm; Wt 65.5 kg
[2017-10-03] VITALS (14 sets, daily range): BP systolic 117–167; BP diastolic 59–92; PULSE 73–120; RESP 15–22; TEMP 96.2–98.4; O2SAT 96–100
[~2017-10-03 03:19] MED LIST changes: +GABA800T PO; +ZANA2CAP PO
[2017-10-03] MEDS ORDERED: ONDANSETRON HCL 4 MG/2 ML VIAL IVP ONE (04:00)
[2017-10-03] MEDS ORDERED: SODIUM CHLORIDE 0.9% FLUSH 10 ML FLUSH IV FLUSH PRN (04:00)
[2017-10-03] MEDS ORDERED: KETOROLAC TROMETHAMINE 30 MG/ML (IVP) VIAL IVP ONE (04:00)
--- NOTE | 2017-10-03 04:17 | PD ---
HPI Chief Complaint: GI Complaint Time Seen by Provider: 03:40 Travel History International Travel<30 days: No Contact w/Intl Traveler<30days: No Traveled to known affect area: No History of Present Illness HPI Patient is a 57 year old male recovering IVDA presents to the ER with superpubic pain. States hasn't used in months. Patient states he's been having nausea/vomiting and abdominal cramping for the past two days associated with this mild abdominal cramping. Patient denies diarrhea and endorses some mild constipation. States the pain is moderate to severe but the nausea is worse. Of note patient is being worked up for a valve replacement after endocarditis and sepsis and had cardiac catheterization 2-3 weeks ago complicated by right leg pseudo aneurysm which was treated with thrombin injections. He states that the swelling has been going down slowly. PFSH Past Medical History Hx Anticoagulant Therapy: No Heart Rhythm Problems: No Cancer: No Cardiovascular Problems: Yes (Endocarditis) High Cholesterol: Yes Chest Pain: No Congestive Heart Failure: Yes Diabetes: No Diminished Hearing: No Endocrine: No Gastrointestinal Disorders: Yes (cirrhosis liver) Genitourinary: No Hepatitis: Yes (HEP C) Herniated Disk: Yes (HAD BULGING DISC ONLY) Hypertension: Yes Immune Disorder: No Kidney Stones: Yes Musculoskeletal: Yes Neurologic: Yes (LEG PAIN/TREMMORS) Psychiatric: No Reproductive: No Respiratory: No Immunizations Current: Yes Tetanus Vaccination: Unknown Influenza Vaccination: No Past Surgical History Abdominal Surgery: No Cardiac Surgery: Yes (dianogsitc cardiac cath 09/09/17) Ear Surgery: No Endocrine Surgery: No Eye Surgery: No Genitourinary Surgery: No Gynecologic Surgery: No Oral Surgery: No Thoracic Surgery: No Social History Alcohol Use: No Tobacco Use: Yes (10/25 ppd & USES VAPOR CIGS) Substance Use: Yes (history of heroin abuse, IVDU; denies x 1 year (stated 04/10)) Allergies-Medications (Allergen,Severity, Reaction): Coded Allergies: No Known Allergies (Unverified Allergy, Unknown, 10/03/17) Reported Meds & Prescriptions Reported Meds & Active Scripts Active Reported Gabapentin 800 Mg Tab 800 Mg PO TID Zanaflex (Tizanidine HCl) 2 Mg Cap 2 Mg PO TID Furosemide 40 Mg Tab 40 Mg PO DAILY Metoprolol Tartrate 25 Mg Tab 20 Mg PO DAILY Lisinopril 5 Mg Tab 5 Mg PO DAILY Review of Systems Except as stated in HPI: all other systems reviewed are Neg Physical Exam Narrative GENERAL: WD/WN in nad SKIN: Warm and dry. No rash. HEAD: Atraumatic. Normocephalic. EYES: Pupils equal and round. No scleral icterus. No injection or drainage. ENT: No nasal bleeding or discharge. Mucous membranes pink and moist. NECK: Trachea midline. No JVD. CARDIOVASCULAR: Regular rate and rhythm. 2+ bilaterally equal pulses in all four extremities. No swelling or mass appreciated in the right inguinal area. Minimal ecchymosis to posterior right upper leg. RESPIRATORY: No accessory muscle use. Clear to auscultation. Breath sounds equal bilaterally. GASTROINTESTINAL: Abdomen soft, minimally tender in superpubic region, nondistended. Hepatic and splenic margins not palpable. no rebound no percussive tenderness. MUSCULOSKELETAL: Extremities without clubbing, cyanosis, or edema. No obvious deformities. NEUROLOGICAL: Awake and alert. No obvious cranial nerve deficits. Motor grossly within normal limits. Five out of 5 muscle strength in the arms and legs. Normal speech. PSYCHIATRIC: Appropriate mood and affect; insight and judgment normal. Data Data Last Documented VS Vital Signs Date Time Temp Pulse Resp B/P (MAP) Pulse Ox O2 Delivery O2 Flow Rate FiO2 10/03/17 05:30 18 10/03/17 05:00 86 140/82 (101) 99 Room Air 10/03/17 03:39 97.8 Orders Orders Complete Blood Count With Diff (10/03/17 03:59) Comprehensive Metabolic Panel (10/03/17 03:59) Lipase (10/03/17 03:59) Lactic Acid (10/03/17 03:59) Urinalysis - C+S If Indicated (10/03/17 03:59) Ct Abd/Pel W Iv Contrast(Rout) (10/03/17 03:59) Iv Access Insert/Monitor (10/03/17 03:59) Ecg Monitoring (10/03/17 03:59) Oximetry (10/03/17 03:59) Ondansetron Inj (Zofran Inj) (10/03/17 04:00) Sodium Chloride 0.9% Flush (Ns Flush) (10/03/17 04:00) Ketorolac Inj (Toradol Inj) (10/03/17 04:00) Iohexol 350 Inj (Omnipaque 350 Inj) (10/03/17 04:48) Insert Ng Tube (10/03/17 05:20) Morphine Inj (Morphine Inj) (10/03/17 05:30) Promethazine Inj (Phenergan Inj) (10/03/17 05:30) Admit Order (Ed Use Only) (10/03/17 ) Admit To Inpatient (10/03/17 ) Vital Signs (Adult) Q4H (10/03/17 05:34) Activity Oob With Assistance (10/03/17 05:34) Diet Npo (10/03/17 Breakfast) Sodium Chlor 0.9% 1000 Ml Inj (Ns 1000 M (10/03/17 05:34) Sodium Chloride 0.9% Flush (Ns Flush) (10/03/17 05:45) Sodium Chloride 0.9% Flush (Ns Flush) (10/03/17 09:00) Ondansetron Inj (Zofran Inj) (10/03/17 05:45) Basic Metabolic Panel (Bmp) (10/04/17 06:00) Complete Blood Count With Diff (10/04/17 06:00) Case Management Consult (10/03/17 05:34) Scd Bilateral/Knee High GREGORY.BID (10/03/17 05:34) Naloxone Inj (Narcan Inj) (10/03/17 05:45) Docusate Sodium-Senna (Filomena-Colace) (10/03/17 09:00) Magnesium Hydroxide Liq (Milk Of Magnesi (10/03/17 05:45) Sennosides (Senokot) (10/03/17 05:45) Bisacodyl Supp (Dulcolax Supp) (10/03/17 05:45) Lactulose Liq (Lactulose Liq) (10/03/17 05:45) Inpatient Certification (10/03/17 ) Consult General Surgery (10/03/17 ) Labs Laboratory Tests Test 10/03/17 04:10 White Blood Count 13.1 TH/MM3 Red Blood Count 4.99 MIL/MM3 Hemoglobin 15.1 GM/DL Hematocrit 46.2 % Mean Corpuscular Volume 92.6 FL Mean Corpuscular Hemoglobin 30.3 PG Mean Corpuscular Hemoglobin Concent 32.7 % Red Cell Distribution Width 13.7 % Platelet Count 358 TH/MM3 Mean Platelet Volume 7.1 FL Neutrophils (%) (Auto) 82.1 % Lymphocytes (%) (Auto) 9.1 % Monocytes (%) (Auto) 6.4 % Eosinophils (%) (Auto) 0.3 % Basophils (%) (Auto) 2.1 % Neutrophils # (Auto) 10.8 TH/MM3 Lymphocytes # (Auto) 1.2 TH/MM3 Monocytes # (Auto) 0.8 TH/MM3 Eosinophils # (Auto) 0.0 TH/MM3 Basophils # (Auto) 0.3 TH/MM3 CBC Comment AUTO DIFF Differential Comment AUTO DIFF CONFIRMED Platelet Estimate NORMAL Platelet Morphology Comment NORMAL Red Cell Morphology Comment NORMAL Blood Urea Nitrogen 18 MG/DL Creatinine 1.20 MG/DL Random Glucose 120 MG/DL Total Protein 8.3 GM/DL Albumin 4.0 GM/DL Calcium Level 9.2 MG/DL Alkaline Phosphatase 105 U/L Aspartate Amino Transf (AST/SGOT) 16 U/L Alanine Aminotransferase (ALT/SGPT) 19 U/L Total Bilirubin 0.8 MG/DL Sodium Level 138 MEQ/L Potassium Level 4.4 MEQ/L Chloride Level 102 MEQ/L Carbon Dioxide Level 25.8 MEQ/L Anion Gap 10 MEQ/L Estimat Glomerular Filtration Rate 62 ML/MIN Lactic Acid Level 2.0 mmol/L Lipase 179 U/L MDM Medical Decision Making Medical Screen Exam Complete: Yes Emergency Medical Condition: Yes Differential Diagnosis Obstruction, gastritis, gastroenteritis, lecture led abnormality, pancreatitis, urinary tract infection. Narrative Course 57-year-old male presents emergency department for evaluation of nausea vomiting and inability to tolerate anything by mouth for the last 2 days. Patient appears well hydrated, lecture lites within normal limits, given his complex medical history he is a high risk patient a CAT scan abdomen and pelvis was performed and shows show small bowel obstruction. The patient has not had any abdominal surgery in the past. No masses were seen on CAT scan. Patient was discussed with Dr. Mccoy for admission and she is agreeable. Toradol and Zofran did not affect his symptoms and morphine and Phenergan were ordered. After morphine and Phenergan were ordered patient had several attempts to pass an NG tube and he was unable to tolerate it. Patient states on his last admission they attempted to place a feeding tube down him and were unsuccessful because he couldn't tolerate that. Had a lengthy discussion with the patient regarding NG tube decompression of the stomach and intestine to try and keep him out of the operating room as with his heart history he may be at increased risk of adverse outcome from such a procedure. He verbalized understanding but still declined to have the NG tube placed. He did ask for sedation and maybe would be successful under sedation however I think that placing an NG tube under procedural sedation is inherently dangerous and may carry with it aspiration risk and I do not think it is safe to perform in the emergency department. Patient will be admitted without NG tube. Diagnosis Primary Impression: Small bowel obstruction Admitting Information Admitting Physician Requests: Admit Condition: Erick Hay MD Oct 03, 2017 04:17
[2017-10-03 04:25] LABS: AUTOMATED NEUTROPHIL # 10.8 TH/MM3 (1.8-7.7); BASOPHIL # 0.3 TH/MM3 (0-0.2); BASOPHIL % 2.1 % (0.0-2.0); EOSINOPHIL % 0.3 % (0.0-4.0); HEMATOCRIT 46.2 % (39.0-51.0); LYMPH % 9.1 % (9.0-44.0); LYMPHOCYTE # 1.2 TH/MM3 (1.0-4.8); MEAN CELL VOLUME 92.6 FL (80.0-100.0); MEAN CORPUSCULAR HEMOGLOBIN 30.3 PG (27.0-34.0); MEAN CORPUSCULAR HGB CONC 32.7 % (32.0-36.0); MONO % 6.4 % (0.0-8.0); NEUT % 82.1 % (16.0-70.0); PLATELET COUNT 358 TH/MM3 (150-450); RED BLOOD COUNT 4.99 MIL/MM3 (4.50-5.90); RED CELL DISTRIBUTION WIDTH 13.7 % (11.6-17.2); WHITE BLOOD COUNT 13.1 TH/MM3 (4.0-11.0)
[2017-10-03 04:33] LABS: HEMO FLAGS AUTO DIFF
[2017-10-03 04:45] LABS: CHLORIDE 102 MEQ/L (98-107); POTASSIUM 4.4 MEQ/L (3.5-5.1); SODIUM (NA) 138 MEQ/L (136-145)
[2017-10-03 04:48] LABS: ANION GAP 10 MEQ/L (5-15); BICARBONATE 25.8 MEQ/L (21.0-32.0)
[2017-10-03] MEDS ORDERED: IOHEXOL 350 MG/ML 10 ML VIAL (for RAD DIAG) IVCONTRAST ONE (04:48)
[2017-10-03 04:49] LABS: BLOOD UREA NITROGEN 18 MG/DL (7-18)
[2017-10-03 04:51] LABS: ALT (GPT) 19 U/L (12-78); AST (GOT) 16 U/L (15-37); GLOMERULAR FILTRATION RATE 62 ML/MIN (>89)
[2017-10-03 04:53] LABS: TOTAL BILIRUBIN ADULT 0.8 MG/DL (0.2-1.0)
[2017-10-03 04:54] LABS: ALKALINE PHOSPHATASE 105 U/L (45-117)
[2017-10-03 05:09] LABS: PLATELET ESTIMATE SMEAR NORMAL (NORMAL); PLATELET MORPHOLOGY NORMAL (NORMAL); SCAN/DIFF AUTO DIFF CONFIRMED
--- NOTE | 2017-10-03 05:18 | RADRPT ---
EXAM DATE/TIME: 10/03/2017 04:28 [facility] COMPARISON: CT ABDOMEN & PELVIS W CONTRAST, September 19, 2017, 21:46. INDICATIONS : Abdominal pain. Nausea. Vomiting. IV CONTRAST: 75 cc Omnipaque 350 (iohexol) IV ORAL CONTRAST: No oral contrast ingested. RADIATION DOSE: 6.38 CTDIvol (mGy) MEDICAL HISTORY : Cardiovascular disease. Cirrhosis. SURGICAL HISTORY : Fusion, lumbar. ENCOUNTER: Initial ACUITY: 2 days PAIN SCALE: 9/10 LOCATION: Bilateral Umbilical TECHNIQUE: Volumetric scanning of the abdomen and pelvis was performed. Using automated exposure control and ad justment of the mA and/or kV according to patient size, radiation dose was kept as low as reasonably achievable to obtain optimal diagnostic quality images. DICOM format image data is available electro nically for review and comparison. FINDINGS: LOWER LUNGS: The visualized lower lungs are clear. LIVER: Homogeneous density without lesion. There is no dilation of the biliary tree. No calcified gallston es. SPLEEN: Normal size without lesion. PANCREAS: Within normal limits. KIDNEYS: Normal in size and shape. There is no mass, stone or hydronephrosis. ADRENAL GLANDS: Within normal limits. VASCULAR: There is no aortic aneurysm. BOWEL/MESENTERY: Abnormal. There are multiple dilated loops of proximal small bowel measuring up to 4.1 cm in width. A transition point is seen in the right hypogastric region, axial image #44. Small bowel distal is normal in dimension. There are several small diverticula in the sigmoid colon without radiographic e vidence of diverticulitis. ABDOMINAL WALL: Within normal limits. RETROPERITONEUM: There is no lymphadenopathy. No evidence of free fluid. BLADDER: No wall thickening or mass. REPRODUCTIVE: Within normal limits. INGUINAL: Reduction in the size of the soft tissue in the right inguinal region at site of prior groin hematoma . MUSCULOSKELETAL: Within normal limits for patient age. CONCLUSION: 1. Small bowel obstruction with transition point in the right hypogastric region. No mass or adenopa thy at the transition zone. 2. Sigmoid diverticula without radiographic evidence of diverticulitis. Ed Yusuf MD on October 03, 2017 at 5:11 Board Certified Radiologist. This report was verified electronically.
[2017-10-03] MEDS ORDERED: MORPHINE SULFATE 4 MG/ML INJ IV PUSH ONE (05:30)
[2017-10-03] MEDS ORDERED: PROMETHAZINE INJ 25 MG/ML VIAL IM ONE (05:30)
[2017-10-03] MEDS ORDERED: LACTULOSE SYRUP 20 GM/30 ML CUP PO PRN (05:45)
[2017-10-03] MEDS ORDERED: BISACODYL 10 MG SUPP RECTAL PRN (05:45)
[2017-10-03] MEDS ORDERED: NALOXONE HCL 0.4 MG/ML AMP IV PUSH PRN (05:45)
[2017-10-03] MEDS ORDERED: MAGNESIUM HYDROXIDE SUSP 30 ML CUP PO PRN (05:45)
[2017-10-03] MEDS ORDERED: SENNOSIDES 8.6 MG TAB PO PRN (05:45)
[2017-10-03] MEDS: SODIUM CHLOR 0.9% 1000 ML INJ 1,000 ML IV SCH ×3 (06:12→21:38)
[2017-10-03] MEDS ORDERED: DOCUSATE SODIUM 50 MG/SENNA 8.6 MG TAB PO SCH (09:00)
--- NOTE | 2017-10-03 10:25 | PD.CAR.PN ---
CVT Progress Note Subjective/Hospital Course: Referral received Full consult to follow Chintan Chen Objective: Vital Signs Date Time Temp Pulse Resp B/P (MAP) Pulse Ox O2 Delivery O2 Flow Rate FiO2 10/03/17 09:26 96.7 85 16 138/87 (104) 99 10/03/17 06:45 96.2 87 18 130/79 (96) 96 10/03/17 06:44 96.2 87 18 130/79 (96) 96 10/03/17 06:28 10/03/17 06:10 120 18 134/83 (100) 98 Room Air 10/03/17 06:00 18 10/03/17 05:30 18 10/03/17 05:00 86 18 140/82 (101) 99 Room Air 10/03/17 04:26 18 99 Room Air 10/03/17 04:20 92 18 137/79 (98) 99 Room Air 10/03/17 03:45 18 10/03/17 03:40 94 18 156/82 (106) 99 Room Air 10/03/17 03:39 97.8 95 18 156/82 (106) 99 Room Air 10/03/17 03:25 97.8 108 22 167/85 (112) 100 Labs: Laboratory Tests Test 10/03/17 04:10 White Blood Count 13.1 TH/MM3 (4.0-11.0) Red Blood Count 4.99 MIL/MM3 (4.50-5.90) Hemoglobin 15.1 GM/DL (13.0-17.0) Hematocrit 46.2 % (39.0-51.0) Mean Corpuscular Volume 92.6 FL (80.0-100.0) Mean Corpuscular Hemoglobin 30.3 PG (27.0-34.0) Mean Corpuscular Hemoglobin Concent 32.7 % (32.0-36.0) Red Cell Distribution Width 13.7 % (11.6-17.2) Platelet Count 358 TH/MM3 (150-450) Mean Platelet Volume 7.1 FL (7.0-11.0) Neutrophils (%) (Auto) 82.1 % (16.0-70.0) Lymphocytes (%) (Auto) 9.1 % (9.0-44.0) Monocytes (%) (Auto) 6.4 % (0.0-8.0) Eosinophils (%) (Auto) 0.3 % (0.0-4.0) Basophils (%) (Auto) 2.1 % (0.0-2.0) Neutrophils # (Auto) 10.8 TH/MM3 (1.8-7.7) Lymphocytes # (Auto) 1.2 TH/MM3 (1.0-4.8) Monocytes # (Auto) 0.8 TH/MM3 (0-0.9) Eosinophils # (Auto) 0.0 TH/MM3 (0-0.4) Basophils # (Auto) 0.3 TH/MM3 (0-0.2) CBC Comment AUTO DIFF Differential Comment AUTO DIFF CONFIRMED Platelet Estimate NORMAL (NORMAL) Platelet Morphology Comment NORMAL (NORMAL) Red Cell Morphology Comment NORMAL (NORMAL) Blood Urea Nitrogen 18 MG/DL (7-18) Creatinine 1.20 MG/DL (0.60-1.30) Random Glucose 120 MG/DL (74-106) Total Protein 8.3 GM/DL (6.4-8.2) Albumin 4.0 GM/DL (3.4-5.0) Calcium Level 9.2 MG/DL (8.5-10.1) Alkaline Phosphatase 105 U/L (45-117) Aspartate Amino Transf (AST/SGOT) 16 U/L (15-37) Alanine Aminotransferase (ALT/SGPT) 19 U/L (12-78) Total Bilirubin 0.8 MG/DL (0.2-1.0) Sodium Level 138 MEQ/L (136-145) Potassium Level 4.4 MEQ/L (3.5-5.1) Chloride Level 102 MEQ/L (98-107) Carbon Dioxide Level 25.8 MEQ/L (21.0-32.0) Anion Gap 10 MEQ/L (5-15) Estimat Glomerular Filtration Rate 62 ML/MIN (>89) Lactic Acid Level 2.0 mmol/L (0.4-2.0) Lipase 179 U/L (73-393) Result Diagram: 10/03/17 0410 10/03/17 0410 Debora Oropeza MD Oct 03, 2017 10:25
[2017-10-03] MEDS: MORPHINE SULFATE 2 MG/ML INJ IV PUSH PRN ×4 (10:35→23:25)
[2017-10-03] MEDS: ONDANSETRON HCL 4 MG/2 ML VIAL IVP PRN ×3 (10:36→23:30)
[2017-10-03] MEDS: SODIUM CHLORIDE 0.9% FLUSH 10 ML FLUSH IV FLUSH SCH ×2 (10:38→21:37)
--- NOTE | 2017-10-03 13:32 | PD.CONS ---
cc: Anthony Espinosa MD [facility] Service General Surgery Consult Requested By Dr. Mccoy Reason for Consult Abdominal pain, nausea and vomiting Primary Care Physician No Primary Care Physician History of Present Illness This is a 57 year old male with a past medical history of congestive heart failure, cirrhosis, hepatitis C treated with Harvoni and herniated discs in lower back. According to the patient, about three weeks ago the patient had a heart catheterization done in [place] and was diagnosed with endocarditis. He is in need of a mitral valve replacement. He was discharged home in stable condition. He was staying with a friend in [place] when he noticed bilateral groin swelling and extensive bruising. He came to the ED in [place] where Dr. Mohan saw him. The patient was given thrombin injections and discharged home. Now the patient presents with a two day history of abdominal pain with associated nausea and vomiting. He has had several episodes of nausea. His last bowel movement was this morning about 2AM which was brown and hard. He last had a colonoscopy about 6 months ago which was normal. A CT abd/pelvis was obtained that shows a small bowel obstruction with transition point in the right hypogastric region; there is no mass at the transition point. The patient's labs are essentially normal except a mildly elevated white blood cell count of 13.1. Several attempts were made to insert an NG tube in the emergency department without success. The patient denies any sick contacts. A General Surgery consultation has been requested for abdominal pain with CT findings of small bowel obstruction. Review of Systems Constitutional: COMPLAINS OF: Change in appetite Endocrine: DENIES: Polydipsia, Polyuria, Polyphagia Eyes: DENIES: Diplopia Ears, nose, mouth, throat: DENIES: Hearing loss Respiratory: DENIES: Cough Cardiovascular: DENIES: Palpitations Gastrointestinal: COMPLAINS OF: Abdominal pain, Constipation, Nausea, Vomiting , DENIES: Diarrhea Genitourinary: DENIES: Urinary frequency Musculoskeletal: DENIES: Muscle aches Integumentary: DENIES: Abnormal pigmentation Hematologic/lymphatic: DENIES: Bruising Immunologic/allergic: DENIES: Eczema Neurologic: DENIES: Abnormal gait Psychiatric: DENIES: Anxiety, Confusion Past Family Social History Past Medical History Endocarditis Congestive heart failure Cirrhosis Hepatitis C---treated with Harvoni Herniated disc Past Surgical History Cardiac catheterization Reported Medications Zanaflex Metoprolol Gabapentin Furosemide Allergies: Coded Allergies: No Known Allergies (Unverified Allergy, Unknown, 10/03/17) Active Ordered Medications Current Medications Medications (Trade) Dose Ordered Sig/Aden Route Start Time Stop Time Status Last Admin Sodium Chloride 1,000 ml @ 75 mls/hr [id number] IV 10/03/17 05:34 10/03/17 06:12 (NS Flush) 2 ml UNSCH PRN IV FLUSH 10/03/17 05:45 (NS Flush) 2 ml BID IV FLUSH 10/03/17 09:00 10/03/17 10:38 (Zofran Inj) 4 mg Q6H PRN IVP 10/03/17 05:45 (Narcan Inj) 0.4 mg UNSCH PRN IV PUSH 10/03/17 05:45 (Filomena-Colace) 1 tab BID PO 10/03/17 09:00 10/03/17 10:36 (Milk Of Magnesia Liq) 30 ml Q12H PRN PO 10/03/17 05:45 (Senokot) 17.2 mg Q12H PRN PO 10/03/17 05:45 (Dulcolax Supp) 10 mg DAILY PRN RECTAL 10/03/17 05:45 (Lactulose Liq) 30 ml DAILY PRN PO 10/03/17 05:45 (Morphine Inj) 2 mg Q4H PRN IV PUSH 10/03/17 10:30 10/03/17 10:35 Family History Noncontributory Social History Uses vapor cigarettes daily Denies EtOH use Denies current illicit drug use; he does have a history of IV drug abuse --- last used about 18 months ago. Physical Exam Vital Signs Vital Signs Date Time Temp Pulse Resp B/P (MAP) Pulse Ox O2 Delivery O2 Flow Rate FiO2 10/03/17 10:40 18 10/03/17 09:26 96.7 85 16 138/87 (104) 99 10/03/17 06:45 96.2 87 18 130/79 (96) 96 10/03/17 06:44 96.2 87 18 130/79 (96) 96 10/03/17 06:28 10/03/17 06:10 120 18 134/83 (100) 98 Room Air 10/03/17 06:00 18 10/03/17 05:30 18 10/03/17 05:00 86 18 140/82 (101) 99 Room Air 10/03/17 04:26 18 99 Room Air 10/03/17 04:20 92 18 137/79 (98) 99 Room Air 10/03/17 03:45 18 10/03/17 03:40 94 18 156/82 (106) 99 Room Air 10/03/17 03:39 97.8 95 18 156/82 (106) 99 Room Air 10/03/17 03:25 97.8 108 22 167/85 (112) 100 Physical Exam GENERAL: Pleasant 57 year old male resting in bed in no acute distress SKIN: Warm and dry. HEAD: Atraumatic. Normocephalic. EYES: Pupils equal and round. No scleral icterus. No injection or drainage. ENT: No nasal bleeding or discharge. Mucous membranes pink and moist. NECK: Trachea midline. CARDIOVASCULAR: Regular rate and rhythm. RESPIRATORY: No accessory muscle use. Clear to auscultation. Breath sounds equal bilaterally. GASTROINTESTINAL: Abdomen soft, minimally tender to palpation; non distended; No visible scars or hernias. Faint bruising of RIGHT groin from prior heart catheterization MUSCULOSKELETAL: Extremities without clubbing, cyanosis, or edema. No obvious deformities. NEUROLOGICAL: Awake and alert. No obvious cranial nerve deficits. Motor grossly within normal limits. Five out of 5 muscle strength in the arms and legs. Normal speech. PSYCHIATRIC: Appropriate mood and affect; insight and judgment normal. Laboratory Laboratory Tests Test 10/03/17 04:10 White Blood Count 13.1 Red Blood Count 4.99 Hemoglobin 15.1 Hematocrit 46.2 Mean Corpuscular Volume 92.6 Mean Corpuscular Hemoglobin 30.3 Mean Corpuscular Hemoglobin Concent 32.7 Red Cell Distribution Width 13.7 Platelet Count 358 Mean Platelet Volume 7.1 Neutrophils (%) (Auto) 82.1 Lymphocytes (%) (Auto) 9.1 Monocytes (%) (Auto) 6.4 Eosinophils (%) (Auto) 0.3 Basophils (%) (Auto) 2.1 Neutrophils # (Auto) 10.8 Lymphocytes # (Auto) 1.2 Monocytes # (Auto) 0.8 Eosinophils # (Auto) 0.0 Basophils # (Auto) 0.3 CBC Comment AUTO DIFF Differential Comment AUTO DIFF CONFIRMED Platelet Estimate NORMAL Platelet Morphology Comment NORMAL Red Cell Morphology Comment NORMAL Blood Urea Nitrogen 18 Creatinine 1.20 Random Glucose 120 Total Protein 8.3 Albumin 4.0 Calcium Level 9.2 Alkaline Phosphatase 105 Aspartate Amino Transf (AST/SGOT) 16 Alanine Aminotransferase (ALT/SGPT) 19 Total Bilirubin 0.8 Sodium Level 138 Potassium Level 4.4 Chloride Level 102 Carbon Dioxide Level 25.8 Anion Gap 10 Estimat Glomerular Filtration Rate 62 Lactic Acid Level 2.0 Lipase 179 Result Diagram: 10/03/1740910/03/17 0410 Imaging Last 48 hours Impressions Abdomen/Pelvis CT 10/03/17 0359 Signed Impressions: Service Date/Time: Tuesday, October 03, 2017 04:28 - CONCLUSION: 1. Small bowel obstruction with transition point in the right hypogastric region. No mass or adenopathy at the transition zone. 2. Sigmoid diverticula without radiographic evidence of diverticulitis. Ed Yusuf MD Assessment and Plan Assessment and Plan 57 year old male with abdominal pain; CT abd/pelvis shows small obstruction with a transition point at the right hypogastric region. -NPO -Consult IR to insert NGT -Pain control -Zofran for nausea -IVF -Will defer surgical management to Dr. Mohan since the patient is known to him and just saw him earlier this month -Thank you for this consult; We will sign off at this time Discussed Condition With Suly Johnson Oct 03, 2017 13:32
--- NOTE | 2017-10-03 14:11 | HHI.HP ---
[facility] Service [facility] Primary Care Physician No Primary Care Physician Admission Diagnosis Small Bowel Obstruction Diagnoses: (1) Small bowel obstruction Chief Complaint: Abdominal pain. Nausea Vomiting Travel History International Travel<30 Days: No Contact w/Intl Traveler <30 Da: No Traveled to Known Affected Are: No History of Present Illness Written by Micaela Salinas, acting as scribe for Dr. Bravo on 10/03/17 at 13:50. Mr. Cooley is a 57-year-old male patient with a known medical history of IVDA, has not used in over 18 months, mitral valve endocarditis and cirrhosis of the liver who presented to the ED with complaints of abdominal pain, nausea and vomiting x 2 days. Patient states that he was feeling overall his normal self up until Sunday night when he suddenly began to feel abdominal cramping with associated nausea and vomiting. Admits to poor intake x 2 days due to vomiting. Pain is located in his suprapubic area, sharp and constant in nature, denies any radiation of pain, at its worse the pain is rated a 9/10, denies any aggravating factors, pain medication has relieved the pain. Denies any recent illness including fever, chills, headache, chest pain, cough, shortness of breath, diarrhea or dysuria. Denies any black stool or hematochezia. Does follow with a GI doctor in [place] and did undergo a colonoscopy 6 months ago which was reportedly unremarkable besides some presence of stable hemorrhoids. At the time of assessment patient's pain was well controlled, did have complaints of some nausea, no reports of vomiting all day. Patient follows with Dr. Hirsch in [place] for cardiology. Patient reports he does have a scheduled appointment with a cardiothoracic surgeon in [place] for evaluation of possible mitral valve replacement. Review of Systems Constitutional: DENIES: Fever, Chills Eyes: DENIES: Blurred vision, Double Vision Respiratory: DENIES: Cough, Sputum production, Shortness of breath Cardiovascular: DENIES: Chest pain, Syncope Gastrointestinal: COMPLAINS OF: Abdominal pain, Constipation, Nausea, Vomiting , DENIES: Black stools, Bloody stools, Diarrhea Musculoskeletal: COMPLAINS OF: Back pain Psychiatric: DENIES: Anxiety Except as stated in HPI: all other systems reviewed are Neg Past Family Social History Past Medical History Endocarditis next and congestive heart failure Cirrhosis Hepatitis C---treated with Harvoni Herniated disc Past Surgical History Cardiac catheterization Reported Medications Active Reported Gabapentin 800 Mg Tab 800 Mg PO TID Zanaflex (Tizanidine HCl) 2 Mg Cap 2 Mg PO TID Furosemide 40 Mg Tab 40 Mg PO DAILY Metoprolol Tartrate 25 Mg Tab 20 Mg PO DAILY Lisinopril 5 Mg Tab 5 Mg PO DAILY Allergies: Coded Allergies: No Known Allergies (Unverified Allergy, Unknown, 10/03/17) Active Ordered Medications Current Medications Medications (Trade) Dose Ordered Sig/Aden Route Start Time Stop Time Status Last Admin Sodium Chloride 1,000 ml @ 75 mls/hr [id number] IV 10/03/17 05:34 10/03/17 06:12 (NS Flush) 2 ml UNSCH PRN IV FLUSH 10/03/17 05:45 (NS Flush) 2 ml BID IV FLUSH 10/03/17 09:00 10/03/17 10:38 (Zofran Inj) 4 mg Q6H PRN IVP 10/03/17 05:45 (Narcan Inj) 0.4 mg UNSCH PRN IV PUSH 10/03/17 05:45 (Filomena-Colace) 1 tab BID PO 10/03/17 09:00 10/03/17 10:36 (Milk Of Magnesia Liq) 30 ml Q12H PRN PO 10/03/17 05:45 (Senokot) 17.2 mg Q12H PRN PO 10/03/17 05:45 (Dulcolax Supp) 10 mg DAILY PRN RECTAL 10/03/17 05:45 (Lactulose Liq) 30 ml DAILY PRN PO 10/03/17 05:45 (Morphine Inj) 2 mg Q4H PRN IV PUSH 10/03/17 10:30 10/03/17 10:35 Family History Denies any significant family medical history. Social History Does admit to using a vapor cigarette daily. Denies any alcohol use. Denies any current illicit drug use, does admit to a history of IVDA and has not used since admitted to hospital in March of 2016. Physical Exam Vital Signs Vital Signs Date Time Temp Pulse Resp B/P (MAP) Pulse Ox O2 Delivery O2 Flow Rate FiO2 10/03/17 10:40 18 10/03/17 09:26 96.7 85 16 138/87 (104) 99 10/03/17 06:45 96.2 87 18 130/79 (96) 96 10/03/17 06:44 96.2 87 18 130/79 (96) 96 10/03/17 06:28 10/03/17 06:10 120 18 134/83 (100) 98 Room Air 10/03/17 06:00 18 10/03/17 05:30 18 10/03/17 05:00 86 18 140/82 (101) 99 Room Air 10/03/17 04:26 18 99 Room Air 10/03/17 04:20 92 18 137/79 (98) 99 Room Air 10/03/17 03:45 18 10/03/17 03:40 94 18 156/82 (106) 99 Room Air 10/03/17 03:39 97.8 95 18 156/82 (106) 99 Room Air 10/03/17 03:25 97.8 108 22 167/85 (112) 100 Physical Exam GENERAL: This is a well-nourished, well-developed male patient, lying in bed in no apparent distress. Admits to some nausea. SKIN: No rashes, ecchymoses or lesions. warm and dry. HEENT: Atraumatic. Normocephalic. Pupils equal round and reactive. Extraocular motions intact. No scleral icterus. No injection or drainage. Nose without bleeding. Uvula midline. Airway patent. NECK: Trachea midline. No JVD. Supple, nontender. CARDIOVASCULAR: Regular rate and rhythm without murmurs, gallops, or rubs. RESPIRATORY: Clear to auscultation. Breath sounds equal bilaterally. No wheezes , rales, or rhonchi. GASTROINTESTINAL: Abdomen non-tender. Round and distended. Bowel sounds hypoactive. No guarding. MUSCULOSKELETAL: Extremities without clubbing, cyanosis, or edema. No joint tenderness, effusion, or edema noted. NEUROLOGICAL: Awake and alert. Cranial nerves II through XII intact. Motor and sensory grossly within normal limits. Five out of 5 muscle strength in all muscle groups. Normal speech. Laboratory Laboratory Tests Test 10/03/17 04:10 White Blood Count 13.1 Red Blood Count 4.99 Hemoglobin 15.1 Hematocrit 46.2 Mean Corpuscular Volume 92.6 Mean Corpuscular Hemoglobin 30.3 Mean Corpuscular Hemoglobin Concent 32.7 Red Cell Distribution Width 13.7 Platelet Count 358 Mean Platelet Volume 7.1 Neutrophils (%) (Auto) 82.1 Lymphocytes (%) (Auto) 9.1 Monocytes (%) (Auto) 6.4 Eosinophils (%) (Auto) 0.3 Basophils (%) (Auto) 2.1 Neutrophils # (Auto) 10.8 Lymphocytes # (Auto) 1.2 Monocytes # (Auto) 0.8 Eosinophils # (Auto) 0.0 Basophils # (Auto) 0.3 CBC Comment AUTO DIFF Differential Comment AUTO DIFF CONFIRMED Platelet Estimate NORMAL Platelet Morphology Comment NORMAL Red Cell Morphology Comment NORMAL Blood Urea Nitrogen 18 Creatinine 1.20 Random Glucose 120 Total Protein 8.3 Albumin 4.0 Calcium Level 9.2 Alkaline Phosphatase 105 Aspartate Amino Transf (AST/SGOT) 16 Alanine Aminotransferase (ALT/SGPT) 19 Total Bilirubin 0.8 Sodium Level 138 Potassium Level 4.4 Chloride Level 102 Carbon Dioxide Level 25.8 Anion Gap 10 Estimat Glomerular Filtration Rate 62 Lactic Acid Level 2.0 Lipase 179 Result Diagram: 10/03/17 0410 10/03/17 0410 Imaging Last Impressions Abdomen/Pelvis CT 10/03/17 0359 Signed Impressions: Service Date/Time: Tuesday, October 03, 2017 04:28 - CONCLUSION: 1. Small bowel obstruction with transition point in the right hypogastric region. No mass or adenopathy at the transition zone. 2. Sigmoid diverticula without radiographic evidence of diverticulitis. Ed Yusuf MD Septic Shock Reassessment Septic shock perfusion: reassessment completed Caprini VTE Risk Assessment Caprini VTE Risk Assessment: No/Low Risk (score <= 1) Caprini Risk Assessment Model Point Value = 1 Point Value = 2 Point Value = 3 Point Value = 5 Age 41-60 Minor surgery BMI > 25 kg/m2 Swollen legs Varicose veins or History of unexplained or recurrent spontaneous Oral contraceptives or hormone replacement Sepsis (< 1 month) Serious lung disease, including pneumonia (< 1 month) Abnormal pulmonary function Acute myocardial infarction Congestive heart failure (< 1 month) History of inflammatory bowel disease Medical patient at bed rest Age 61-74 Arthroscopic surgery Major open surgery (> 45 min) Laparoscopic surgery (> 45 min) Malignancy Confined to bed (> 72 hours) Immobilizing plaster cast Central venous access Age >= 75 History of VTE Family history of VTE Factor V Leiden Prothrombin [id number] Lupus anticoagulant Anticardiolipin antibodies Elevated serum homocysteine Heparin-induced thrombocytopenia Other congenital or acquired thrombophilia Stroke (< 1 month) Elective arthroplasty Hip, pelvis, or leg fracture Acute spinal cord injury (< 1 month) Prophylaxis Regimen Total Risk Factor Score Risk Level Prophylaxis Regimen 0-1 Low Early ambulation 2 Moderate Order ONE of the following: *Sequential Compression Device (SCD) *Heparin 5000 units SQ BID 3-4 Higher Order ONE of the following medications: *Heparin 5000 units SQ TID *Enoxaparin/Lovenox 40 mg SQ daily (WT < 150 kg, CrCl > 30 mL/min) *Enoxaparin/Lovenox 30 mg SQ daily (WT < 150 kg, CrCl > 10-29 mL/min) *Enoxaparin/Lovenox 30 mg SQ BID (WT < 150 kg, CrCl > 30 mL/min) AND/OR *Sequential Compression Device (SCD) 5 or more Highest Order ONE of the following medications: *Heparin 5000 units SQ TID (Preferred with Epidurals) *Enoxaparin/Lovenox 40 mg SQ daily (WT < 150 kg, CrCl > 30 mL/min) *Enoxaparin/Lovenox 30 mg SQ daily (WT < 150 kg, CrCl > 10-29 mL/min) *Enoxaparin/Lovenox 30 mg SQ BID (WT < 150 kg, CrCl > 30 mL/min) AND *Sequential Compression Device (SCD) Assessment and Plan Problem List: (1) Small bowel obstruction ICD Code: K56.609 - Unspecified intestinal obstruction, unspecified as to partial versus complete obstruction Status: Acute Plan: Abdominal/Pelvis CT reviewed showing small bowel obstruction with transition point at the right hypogastric region. Pain control, Morphine IV available PRN per pain scale. Monitor for constipation. PRN medications available. Ensure hydration, continue IVF. Control nausea, Zofran IV PRN available. General surgery consulted, appreciate further recommendations and input. Unable to insert NGT for gastric decompression, general surgery placed consult to IR for placement. Supportive care. Continue to monitor. 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 Has not used in over 18 months. Patient has an appointment scheduled with a cardiothoracic surgeon in [place] on 10/19 for possible mitral valve replacement. Supportive Care. (3) Cirrhosis of liver ICD Code: K74.60 - Unspecified cirrhosis of liver Plan: With history of Hepatitis C. Per patient, has finished treatment for Hep C 4 months ago. Follows with a GI doctor in [place]. Will hold home PO meds. Decompress bowel for now. Monitor BP trends. DVT Prophylaxis: SCDs. Assessment and Plan Patient is refusing NGT placement with IR as ordered. Dr. Chen called and updated about refusal. Will continue to monitor. Physician Certification 2 Midnight Certification Type: Admission for Inpatient Services Order for Inpatient Services The services are ordered in accordance with Medicare regulations or non- Medicare payer requirements, as applicable. In the case of services not specified as inpatient-only, they are appropriately provided as inpatient services in accordance with the 2-midnight benchmark. Estimated LOS (days): 3 3 days is the estimated time the patient will need to remain in the hospital, assuming treatment plan goals are met and no additional complications. Post-Hospital Plan: Home Medical Decision Making Impression and Plan This note was transcribed by ramya [email or web address][]. I, Dr. Mary Bravo personally performed the history, physical exam, and medical decision making; and confirmed the accuracy of the information in the transcribed note. Authenticated by Dr. Mary Bravo on 10/03/17 at 18:52. Micaela Salinas Oct 03, 2017 14:11 Mary Bravo MD Oct 03, 2017 18:53
[2017-10-03] MEDS: SODIUM CHLORIDE 0.9% FLUSH 10 ML FLUSH IV FLUSH PRN (23:25)
[2017-10-04] MEDS: SODIUM CHLORIDE 0.9% FLUSH 10 ML FLUSH IV FLUSH PRN (03:31)
[2017-10-04] MEDS: MORPHINE SULFATE 2 MG/ML INJ IV PUSH PRN ×3 (03:31→12:51)
[2017-10-04 06:10] LABS: AUTOMATED NEUTROPHIL # 8.2 TH/MM3 (1.8-7.7); BASOPHIL % 0.2 % (0.0-2.0); EOSINOPHIL # 0.3 TH/MM3 (0-0.4); EOSINOPHIL % 2.6 % (0.0-4.0); HEMATOCRIT 37.2 % (39.0-51.0); HEMO FLAGS DIFF FINAL; LYMPH % 16.5 % (9.0-44.0); LYMPHOCYTE # 1.9 TH/MM3 (1.0-4.8); MEAN CELL VOLUME 91.6 FL (80.0-100.0); MEAN CORPUSCULAR HEMOGLOBIN 31.6 PG (27.0-34.0); MEAN CORPUSCULAR HGB CONC 34.5 % (32.0-36.0); MONO % 9.9 % (0.0-8.0); NEUT % 70.8 % (16.0-70.0); PLATELET COUNT 258 TH/MM3 (150-450); RED BLOOD COUNT 4.06 MIL/MM3 (4.50-5.90); RED CELL DISTRIBUTION WIDTH 13.3 % (11.6-17.2); WHITE BLOOD COUNT 11.5 TH/MM3 (4.0-11.0)
[2017-10-04 06:37] LABS: BICARBONATE 22.2 MEQ/L (21.0-32.0); POTASSIUM 3.9 MEQ/L (3.5-5.1)
--- NOTE | 2017-10-04 06:58 | RADRPT ---
EXAM DATE/TIME: 10/04/2017 06:07 [facility] COMPARISON: No previous studies available for comparison. INDICATIONS : Abdominal pain. MEDICAL HISTORY : Cardiovascular disease. Cirrhosis. SURGICAL HISTORY : None. ENCOUNTER: Initial ACUITY: 1 day PAIN SCORE: 10/10 LOCATION: all quadrants. FINDINGS: Supine view of the abdomen was performed. The abdominal bowel gas pattern is normal. No abnormal ma sses, calcifications, or organomegaly is seen. The osseous structures are unremarkable. CONCLUSION: Benign abdomen. Ed Yusuf MD on October 04, 2017 at 6:57 Board Certified Radiologist. This report was verified electronically.
--- NOTE | 2017-10-04 08:50 | HHI.PR ---
Subjective Remarks Written by Micaela Salinas, acting as scribe for Dr. Bravo on 10/04/17 at 08:50. Follow up small bowel obstruction. Patient seen and examined, lying in bed comfortably. RN at bedside. No new acute events overnight. Denies any further nausea and vomiting. Tolerating clear liquid diet without n/v. Abdominal pain is still present, current pain medication regimen is helping. Denies any fevers , chills, chest pain or shortness of breath. Abdomen soft and active bowel sounds noted. Objective Vitals Vital Signs Date Time Temp Pulse Resp B/P (MAP) Pulse Ox O2 Delivery O2 Flow Rate FiO2 10/03/17 23:51 97.4 76 16 124/76 (92) 99 10/03/17 20:00 98.4 75 16 144/92 (109) 99 10/03/17 17:30 98.2 73 15 128/77 (94) 98 10/03/17 15:19 18 10/03/17 14:26 97.2 80 16 117/59 (78) 100 10/03/17 09:26 96.7 85 16 138/87 (104) 99 I/O 10/03/17 10/03/17 10/03/17 10/04/17 10/04/17 10/04/17 07:00 15:00 23:00 07:00 15:00 23:00 Intake Total 480 ml 480 ml Balance 480 ml 480 ml Intake Oral 480 ml 480 ml # Voids 5 3 # Bowel Movements 0 0 Result Diagram: 10/04/17 0500 10/04/17 0500 Imaging Last Impressions Abdomen X-Ray 10/04/17 0600 Signed Impressions: Service Date/Time: September 06:07 - CONCLUSION: Benign abdomen. Ed Yusuf MD Abdomen/Pelvis CT 10/03/17 0359 Signed Impressions: Service Date/Time: Tuesday, October 03, 2017 04:28 - CONCLUSION: 1. Small bowel obstruction with transition point in the right hypogastric region. No mass or adenopathy at the transition zone. 2. Sigmoid diverticula without radiographic evidence of diverticulitis. Ed Yusuf MD Objective Remarks GENERAL: This is a well-nourished, well-developed male patient, lying in bed in no apparent distress. SKIN: No rashes, ecchymoses or lesions. warm and dry. HEENT: Atraumatic. Normocephalic. Pupils equal round and reactive. Extraocular motions intact. No scleral icterus. No injection or drainage. Nose without bleeding. Uvula midline. Airway patent. NECK: Trachea midline. No JVD. Supple, nontender. CARDIOVASCULAR: Regular rate and rhythm without murmurs, gallops, or rubs. RESPIRATORY: Clear to auscultation. Breath sounds equal bilaterally. No wheezes , rales, or rhonchi. GASTROINTESTINAL: Abdomen non-tender, soft, not distended. Bowel sounds active. No guarding. MUSCULOSKELETAL: Extremities without clubbing, cyanosis, or edema. No joint tenderness, effusion, or edema noted. NEUROLOGICAL: Awake and alert. Cranial nerves II through XII intact. Motor and sensory grossly within normal limits. Five out of 5 muscle strength in all muscle groups. Normal speech. A/P Problem List: (1) Small bowel obstruction ICD Code: K56.609 - Unspecified intestinal obstruction, unspecified as to partial versus complete obstruction Status: Acute Plan: Abdominal/Pelvis CT reviewed showing small bowel obstruction with transition point at the right hypogastric region. Pain control, Morphine IV available PRN per pain scale. Monitor for constipation. PRN medications available. Ensure hydration, continue IVF. Control nausea, Zofran IV PRN available. General surgery consulted, appreciate further recommendations and input. Unable to insert NGT for gastric decompression, patient declined NGT placement with IR. Has not had any further nausea or vomiting. Abdominal distention has diminished. Full liquid diet per surgery. Monitor if patient tolerates. Will defer discharge plans to Dr. Chen, continue to follow. Abdominal KUB reviewed from this am showing benign abdomen. Supportive care. Continue to monitor. 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 Has not used in over 18 months. Patient has an appointment scheduled with a cardiothoracic surgeon in [place] on 10/19 for possible mitral valve replacement. Supportive Care. (3) Cirrhosis of liver ICD Code: K74.60 - Unspecified cirrhosis of liver Plan: With history of Hepatitis C. Per patient, has finished treatment for Hep C 4 months ago. Follows with a GI doctor in [place]. Will hold home PO meds. Decompress bowel for now. Monitor BP trends. DVT Prophylaxis: SCDs. Discharge Planning Possible DC today if able to advance diet and tolerates. Attending Statement This note was transcribed by scribe [[email or web address]]. I, Dr. Mary Bravo personally performed the history, physical exam, and medical decision making; and confirmed the accuracy of the information in the transcribed note. seen at time of note signed later likely dc this pm Authenticated by Dr. Mary Bravo on 10/04/17 at 12:57. patient seen in follow up for dc plans at 1612. Tolerating diet and feels ready to go home d/c home reg diet Micaela Salinas Oct 04, 2017 08:50 Mary Bravo MD Oct 04, 2017 12:58
--- NOTE | 2017-10-04 08:55 | PD.CAR.PN ---
CVT Progress Note Subjective/Hospital Course: Referral received Full consult to follow Thanks April 10/04/17 Patient decompressed last night and passed gas with abdomen being soft with hypoactive bowel sounds KUB reveals normal gas pattern with gas in the colon and resolved partial small bowel obstruction/ileus This morning patient will be started on full liquids and can be advanced to diet If he does well he can be discharged later today from my point Objective: Vital Signs Date Time Temp Pulse Resp B/P (MAP) Pulse Ox O2 Delivery O2 Flow Rate FiO2 10/03/17 23:51 97.4 76 16 124/76 (92) 99 10/03/17 20:00 98.4 75 16 144/92 (109) 99 10/03/17 17:30 98.2 73 15 128/77 (94) 98 10/03/17 15:19 18 10/03/17 14:26 97.2 80 16 117/59 (78) 100 10/03/17 09:26 96.7 85 16 138/87 (104) 99 Labs: Laboratory Tests Test 10/04/17 05:00 White Blood Count 11.5 TH/MM3 (4.0-11.0) Red Blood Count 4.06 MIL/MM3 (4.50-5.90) Hemoglobin 12.8 GM/DL (13.0-17.0) Hematocrit 37.2 % (39.0-51.0) Mean Corpuscular Volume 91.6 FL (80.0-100.0) Mean Corpuscular Hemoglobin 31.6 PG (27.0-34.0) Mean Corpuscular Hemoglobin Concent 34.5 % (32.0-36.0) Red Cell Distribution Width 13.3 % (11.6-17.2) Platelet Count 258 TH/MM3 (150-450) Mean Platelet Volume 7.2 FL (7.0-11.0) Neutrophils (%) (Auto) 70.8 % (16.0-70.0) Lymphocytes (%) (Auto) 16.5 % (9.0-44.0) Monocytes (%) (Auto) 9.9 % (0.0-8.0) Eosinophils (%) (Auto) 2.6 % (0.0-4.0) Basophils (%) (Auto) 0.2 % (0.0-2.0) Neutrophils # (Auto) 8.2 TH/MM3 (1.8-7.7) Lymphocytes # (Auto) 1.9 TH/MM3 (1.0-4.8) Monocytes # (Auto) 1.1 TH/MM3 (0-0.9) Eosinophils # (Auto) 0.3 TH/MM3 (0-0.4) Basophils # (Auto) 0.0 TH/MM3 (0-0.2) CBC Comment DIFF FINAL Differential Comment Blood Urea Nitrogen 18 MG/DL (7-18) Creatinine 0.97 MG/DL (0.60-1.30) Random Glucose 79 MG/DL (74-106) Calcium Level 8.0 MG/DL (8.5-10.1) Sodium Level 142 MEQ/L (136-145) Potassium Level 3.9 MEQ/L (3.5-5.1) Chloride Level 110 MEQ/L (98-107) Carbon Dioxide Level 22.2 MEQ/L (21.0-32.0) Anion Gap 10 MEQ/L (5-15) Estimat Glomerular Filtration Rate 80 ML/MIN (>89) Result Diagram: 10/04/17 0500 10/04/17 0500 Debora Oropeza MD Oct 04, 2017 08:55
[2017-10-04] MEDS: SODIUM CHLORIDE 0.9% FLUSH 10 ML FLUSH IV FLUSH SCH (09:00)
--- NOTE | 2017-10-04 09:08 | MB ---
cc: DEBORA RAZA MD DATE OF CONSULTATION 10/03/[address] Raza, surgery REASON FOR CONSULTATION Partial small-bowel obstruction. HISTORY OF PRESENT DISEASE This 57-year-old male is known to me from previous encounters. The patient was admitted just recently with a pseudoaneurysm of the right groin. I saw him at that time, this was about a week ago. Now the patient comes with a 48-hour history of nausea, vomiting, severe cramping abdominal pain, but no diarrhea. The patient underwent a CT scan which reveals dilatation of the proximal bowel and he was admitted for a presumptive diagnosis of small bowel obstruction, hence the consultation. PAST MEDICAL HISTORY 1. Coronary artery disease 2. Endocarditis with mitral insufficiency 3. Congestive heart failure 4. Cirrhosis 5. Hepatitis C on [place] PAST SURGICAL HISTORY 1. Cardiac catheterization 2. Injection of the pseudoaneurysm of the right groin MEDICATIONS Can be found on the record. SOCIAL HISTORY The patient denies drinking, uses vapor cigarettes, has a history of drug IV drug abuse is noncompliant with his care. PHYSICAL EXAM This is a 57-year male. HEAD, EYES, EARS, NOSE, AND THROAT: Normocephalic. No trauma to the head. Pupils equally reactive. Extraocular muscles intact. NECK: Supple, bilateral carotid pulses. No bruits. CHEST: Bilateral breath sounds. HEART: Regular rhythm. The patient has a systolic murmur over the ictus cordis consistent with mitral insufficiency which is 3-6. ABDOMEN: The abdomen is slightly distended but soft. Hypoactive bowel sounds. No rebound or guarding. No masses. PELVIC: The pelvis is normal. EXTREMITIES: Within normal limits. BACK: Normal. IMPRESSION Patient with a dilatation of proximal bowel and nausea and vomiting. I do not believe the patient has a small-bowel obstruction or will require any surgery. He has refused a G-tube and at this point is passing gas. I will just give him liquids, keep him on liquids and if he does well, we will advance his diet and then discharged the patient. Thank you very much for your referral. Debora NASCIMENTO/CLARA /8:51 AM /8:57 AM
[2017-10-04 09:14] VITALS: BP 111/62; PULSE 65; RESP 18; TEMP 97; O2SAT 97
[2017-10-04 14:51] VITALS: BP 138/82; PULSE 65; RESP 18; TEMP 98; O2SAT 98
--- NOTE | 2017-10-04 16:13 | HHI.DCPOC ---
Discharge Care Plan Diagnosis: (1) Small bowel obstruction (2) Cirrhosis of liver (3) Mitral valve regurgitation (4) Endocarditis of mitral valve Goals to Promote Your Health * To prevent worsening of your condition and complications * To maintain your health at the optimal level Directions to Meet Your Goals Take your medications as prescribed Follow your dietary instruction Follow activity as directed Keep your appointments as scheduled Take your immunizations and boosters as scheduled If your symptoms worsen call your PCP, if no PCP go to Urgent Care Center or Emergency Room Smoking is Dangerous to Your Health. Avoid second hand smoke Call the 24-hour hour crisis hotline for domestic abuse at Micaela Salinas Oct 04, 2017 16:13
== END 2017-10-04 16:26 | disposition home or self-care (01) | DRG 390 ==
LOC: PHED 03:19 → PHEDA 05:37 → PH3B 06:30
PROVIDERS: ADMIT Hospitalist; ATTEND Hospitalist
DX: K56.600 Partial intestinal obstruction, unspecified as to cause (principal); I11.0 Hypertensive heart disease with heart failure; I50.9 Heart failure, unspecified; K74.60 Unspecified cirrhosis of liver; I05.9 Rheumatic mitral valve disease, unspecified; K64.9 Unspecified hemorrhoids; Z86.19 Personal history of other infectious and parasitic diseases; F17.290 Nicotine dependence, other tobacco product, uncomplicated; I25.10 Atherosclerotic heart disease of native coronary artery without angina pectoris
CPT/HCPCS: 74000; 74177; 80048; 80053; 83605; 83690; 85025; 96372; 96374; 96375; J1885; J2270; J2405; J2550; J7030; Q9967

== ENCOUNTER 2017-12-14 11:40 | Emergency (ER) | payer MEDICARE, OTHER ==
[~2017-12-14] VITALS: Ht 177.8 cm; Wt 68.0 kg
[~2017-12-14 11:40] MED LIST changes: -BENZ100 PO; -GABA600T PO; -LEDI1TAB PO
[2017-12-14 11:44] VITALS: BP 160/75; PULSE 92; RESP 16; TEMP 97.6; O2SAT 100
[2017-12-14] MEDS ORDERED: SODIUM CHLOR 0.9% 1000 ML INJ 1,000 ML IV SCH (11:53)
[2017-12-14] MEDS ORDERED: ONDANSETRON HCL 4 MG/2 ML VIAL IVP ONE (12:00)
[2017-12-14] MEDS ORDERED: DICYCLOMINE HCL 20 MG/2 ML VIAL IM ONE (12:00)
[2017-12-14] MEDS ORDERED: SODIUM CHLORIDE 0.9% FLUSH 10 ML FLUSH IV FLUSH PRN (12:00)
--- NOTE | 2017-12-14 12:02 | PD ---
HPI Chief Complaint: GI Complaint Time Seen by Provider: 11:58 Travel History International Travel<30 days: No Contact w/Intl Traveler<30days: No Traveled to known affect area: No History of Present Illness HPI 57-year-old male patient with history of IV drug use, endocarditis, being evaluated for mitral valve replacement, hepatitis, recent history of small bowel obstruction, here because of 4 days of abdominal pains in the upper abdomen which she currently measures at a 5 out of 10, nausea, vomiting multiple times at home. He denies any diarrhea, fevers, or other symptoms. He does not note any exacerbating alleviating factors. Modifying Factors: None Associated Signs & Symptoms: Nausea, vomiting, upper abdominal pain Risk Factors: History of small bowel obstruction PFSH Past Medical History Hx Anticoagulant Therapy: No Anxiety: Yes Heart Rhythm Problems: No Cancer: No Cardiovascular Problems: Yes (Endocarditis) High Cholesterol: Yes Chest Pain: No Congestive Heart Failure: Yes Diabetes: No Diminished Hearing: No Endocrine: No Gastrointestinal Disorders: Yes (cirrhosis liver) Genitourinary: No Hepatitis: Yes (HEP C) Herniated Disk: Yes (HAD BULGING DISC ONLY) Hypertension: Yes Immune Disorder: No Kidney Stones: Yes Musculoskeletal: Yes Neurologic: Yes (LEG PAIN/TREMMORS) Psychiatric: No Reproductive: No Respiratory: No Immunizations Current: Yes Past Surgical History Abdominal Surgery: No Cardiac Surgery: Yes (dianogsitc cardiac cath 09/09/17) Ear Surgery: No Endocrine Surgery: No Eye Surgery: No Genitourinary Surgery: No Gynecologic Surgery: No Oral Surgery: No Thoracic Surgery: No Social History Alcohol Use: No Tobacco Use: Yes (10/25 ppd & USES VAPOR CIGS) Substance Use: Yes (history of heroin abuse, IVDU; denies x 1 year (stated 04/10)) Allergies-Medications (Allergen,Severity, Reaction): Coded Allergies: No Known Allergies (Unverified Allergy, Unknown, 12/14/17) Reported Meds & Prescriptions Reported Meds & Active Scripts Active Reported Gabapentin 800 Mg Tab 800 Mg PO TID Zanaflex (Tizanidine HCl) 2 Mg Cap 2 Mg PO TID Furosemide 40 Mg Tab 40 Mg PO DAILY Metoprolol Tartrate 25 Mg Tab 20 Mg PO DAILY Lisinopril 5 Mg Tab 5 Mg PO DAILY Review of Systems Except as stated in HPI: all other systems reviewed are Neg Physical Exam Narrative GENERAL: Well-developed middle-age male patient currently in mild distress. Awake and oriented 3. SKIN: Focused skin assessment warm/dry. HEAD: Atraumatic. Normocephalic. EYES: Pupils equal and round. No scleral icterus. No injection or drainage. ENT: No nasal bleeding or discharge. Mucous membranes pink and moist. NECK: Trachea midline. No JVD. Supple. CARDIOVASCULAR: Regular rate and rhythm. No murmur appreciated. RESPIRATORY: No accessory muscle use. Clear to auscultation. Breath sounds equal bilaterally. GASTROINTESTINAL: Abdomen soft, non-tender, nondistended. Hepatic and splenic margins not palpable. MUSCULOSKELETAL: No obvious deformities. No clubbing. No cyanosis. No edema. NEUROLOGICAL: Awake and alert. No obvious cranial nerve deficits. Motor grossly within normal limits. Normal speech. PSYCHIATRIC: Appropriate mood and affect; insight and judgment normal. Data Data Last Documented VS Vital Signs Date Time Temp Pulse Resp B/P (MAP) Pulse Ox O2 Delivery O2 Flow Rate FiO2 12/14/17 12:07 100 Room Air 12/14/17 11:44 97.6 92 16 160/75 (103) Orders Orders Urinalysis - C+S If Indicated (12/14/17 11:43) Complete Blood Count With Diff (12/14/17 11:53) Comprehensive Metabolic Panel (12/14/17 11:53) Lipase (12/14/17 11:53) Iv Access Insert/Monitor (12/14/17 11:53) Ecg Monitoring (12/14/17 11:53) Oximetry (12/14/17 11:53) Ondansetron Inj (Zofran Inj) (12/14/17 12:00) Sodium Chlor 0.9% 1000 Ml Inj (Ns 1000 M (12/14/17 11:53) Sodium Chloride 0.9% Flush (Ns Flush) (12/14/17 12:00) Dicyclomine Inj (Bentyl Inj) (12/14/17 12:00) Ct Abd/Pel W Iv Contrast(Rout) (12/14/17 11:58) Iohexol 350 Inj (Omnipaque 350 Inj) (12/14/17 13:40) Ed Discharge Order (12/14/17 14:41) Labs Laboratory Tests Test 12/14/17 12:56 12/14/17 14:15 White Blood Count 8.9 TH/MM3 Red Blood Count 5.29 MIL/MM3 Hemoglobin 15.6 GM/DL Hematocrit 47.8 % Mean Corpuscular Volume 90.4 FL Mean Corpuscular Hemoglobin 29.4 PG Mean Corpuscular Hemoglobin Concent 32.5 % Red Cell Distribution Width 12.3 % Platelet Count 225 TH/MM3 Mean Platelet Volume 7.2 FL Neutrophils (%) (Auto) 72.4 % Lymphocytes (%) (Auto) 16.8 % Monocytes (%) (Auto) 7.3 % Eosinophils (%) (Auto) 0.8 % Basophils (%) (Auto) 2.7 % Neutrophils # (Auto) 6.4 TH/MM3 Lymphocytes # (Auto) 1.5 TH/MM3 Monocytes # (Auto) 0.7 TH/MM3 Eosinophils # (Auto) 0.1 TH/MM3 Basophils # (Auto) 0.2 TH/MM3 CBC Comment DIFF FINAL Differential Comment Blood Urea Nitrogen 12 MG/DL Creatinine 1.10 MG/DL Random Glucose 98 MG/DL Total Protein 7.7 GM/DL Albumin 3.7 GM/DL Calcium Level 9.2 MG/DL Alkaline Phosphatase 98 U/L Aspartate Amino Transf (AST/SGOT) 20 U/L Alanine Aminotransferase (ALT/SGPT) 19 U/L Total Bilirubin 0.5 MG/DL Sodium Level 139 MEQ/L Potassium Level 4.5 MEQ/L Chloride Level 108 MEQ/L Carbon Dioxide Level 24.7 MEQ/L Anion Gap 6 MEQ/L Estimat Glomerular Filtration Rate 69 ML/MIN Lipase 163 U/L Urine Collection Type CLEAN CATCH Urine Color YELLOW Urine Turbidity CLEAR Urine pH 7.0 Urine Specific [place] GREATER THAN 1.035 Urine Protein NEG mg/dL Urine Glucose (UA) NEG mg/dL Urine Ketones 15 mg/dL Urine Occult Blood MOD Urine Nitrite NEG Urine Bilirubin NEG Urine Leukocyte Esterase NEG Urine RBC 0-3 /hpf Microscopic Urinalysis Comment CULT NOT INDICATED MDM Medical Decision Making Medical Screen Exam Complete: Yes Emergency Medical Condition: Yes Medical Record Reviewed: Yes Interpretation(s) Laboratory Tests Test 12/14/17 12:56 12/14/17 14:15 Neutrophils (%) (Auto) 72.4 % (16.0-70.0) Basophils (%) (Auto) 2.7 % (0.0-2.0) Chloride Level 108 MEQ/L (98-107) Estimat Glomerular Filtration Rate 69 ML/MIN (>89) Urine Specific [place] GREATER THAN 1.035 Urine Ketones 15 mg/dL (NEG) Urine Occult Blood MOD (NEG) Last 24 hours Impressions Abdomen/Pelvis CT 12/14/17 1158 Signed Impressions: Service Date/Time: Thursday, December 14, 2017 13:31 - CONCLUSION: 1. Mild fluid distention and smooth wall thickening of the duodenum and most proximal jejunum suggesting an enteritis. No free air or free fluid. Ed Hewitt Jr., MD Differential Diagnosis Gastritis versus pancreatitis versus hepatitis versus small bowel obstruction versus other acute intra-abdominal processes Narrative Course Blood work did not indicate significant dehydration or metabolic issues. CAT scan shows signs of enteritis but did not show any signs of obstruction or other acute intra-abdominal processes. Patient was given Bentyl and IV fluids in the ER. No further episodes of vomiting in the ER. My plan would be to release him with further symptomatic relief for nausea vomiting and discomfort. Return for worsening of symptoms as needed. The plan has been discussed with the patient he states understanding. Diagnosis Primary Impression: Enteritis Med/Other Pt SpecificInfo: Prescription(s) given Scripts Dicyclomine (Bentyl) 10 Mg Cap 10 MG PO QID for Bowel Management, #15 CAP 0 Refills Prov: Magali Fishman MD 12/14/17 Ondansetron Odt (Zofran Odt) 4 Mg Tab 4 MG SL Q6HR Y for Nausea/Vomiting, #7 TAB 0 Refills Prov: Magali Fishman MD 12/14/17 Disposition: 01 DISCHARGE HOME Condition: Stable Magali Fishman MD Dec 14, 2017 12:01
[2017-12-14 12:07] VITALS: O2SAT 100
[2017-12-14 13:01] LABS: AUTOMATED NEUTROPHIL # 6.4 TH/MM3 (1.8-7.7); BASOPHIL # 0.2 TH/MM3 (0-0.2); BASOPHIL % 2.7 % (0.0-2.0); EOSINOPHIL # 0.1 TH/MM3 (0-0.4); EOSINOPHIL % 0.8 % (0.0-4.0); HEMATOCRIT 47.8 % (39.0-51.0); HEMOGLOBIN 15.6 GM/DL (13.0-17.0); LYMPH % 16.8 % (9.0-44.0); LYMPHOCYTE # 1.5 TH/MM3 (1.0-4.8); MEAN CELL VOLUME 90.4 FL (80.0-100.0); MEAN CORPUSCULAR HEMOGLOBIN 29.4 PG (27.0-34.0); MEAN CORPUSCULAR HGB CONC 32.5 % (32.0-36.0); MEAN PLATELET VOLUME 7.2 FL (7.0-11.0); MONO % 7.3 % (0.0-8.0); MONOCYTE # 0.7 TH/MM3 (0-0.9); NEUT % 72.4 % (16.0-70.0); PLATELET COUNT 225 TH/MM3 (150-450); RED BLOOD COUNT 5.29 MIL/MM3 (4.50-5.90); RED CELL DISTRIBUTION WIDTH 12.3 % (11.6-17.2); WHITE BLOOD COUNT 8.9 TH/MM3 (4.0-11.0)
[2017-12-14 13:10] LABS: CHLORIDE 108 MEQ/L (98-107); SODIUM (NA) 139 MEQ/L (136-145)
[2017-12-14 13:13] LABS: CALCIUM 9.2 MG/DL (8.5-10.1)
[2017-12-14 13:14] LABS: ALBUMIN 3.7 GM/DL (3.4-5.0); BICARBONATE 24.7 MEQ/L (21.0-32.0); BLOOD UREA NITROGEN 12 MG/DL (7-18); GLUCOSE,RANDOM 98 MG/DL (74-106)
[2017-12-14 13:16] LABS: ALT (GPT) 19 U/L (12-78)
[2017-12-14 13:17] LABS: AST (GOT) 20 U/L (15-37); GLOMERULAR FILTRATION RATE 69 ML/MIN (>89)
[2017-12-14 13:18] LABS: TOTAL BILIRUBIN ADULT 0.5 MG/DL (0.2-1.0); TOTAL PROTEIN 7.7 GM/DL (6.4-8.2)
[2017-12-14 13:19] LABS: ALKALINE PHOSPHATASE 98 U/L (45-117)
[2017-12-14] MEDS ORDERED: IOHEXOL 350 MG/ML 10 ML VIAL (for RAD DIAG) IVCONTRAST ONE (13:40)
--- NOTE | 2017-12-14 13:58 | RADRPT ---
EXAM DATE/TIME: 12/14/2017 13:31 [facility] COMPARISON: CT ABDOMEN & PELVIS W CONTRAST, October 03, 2017, 4:28. INDICATIONS : Epigastric pain, nausea and vomiting x 4 days. IV CONTRAST: 85 cc Omnipaque 350 (iohexol) IV ORAL CONTRAST: No oral contrast ingested. RADIATION DOSE: 6.40 CTDIvol (mGy) MEDICAL HISTORY : Cirrhosis. Renal calculi. Hepatitis C.Hypertension. Endocarditis. SURGICAL HISTORY : Back surgery. Mitral valve replacement. ENCOUNTER: Initial ACUITY: 4 - 6 days PAIN SCALE: 10/10 LOCATION: Epigastric TECHNIQUE: Volumetric scanning of the abdomen and pelvis was performed. Using automated exposure control and ad justment of the mA and/or kV according to patient size, radiation dose was kept as low as reasonably achievable to obtain optimal diagnostic quality images. DICOM format image data is available electro nically for review and comparison. FINDINGS: LOWER LUNGS: The visualized lower lungs are clear. LIVER: Homogeneous density without lesion. There is no dilation of the biliary tree. No calcified gallston es. SPLEEN: Normal size without lesion. PANCREAS: Within normal limits. KIDNEYS: Normal in size and shape. There is no mass, stone or hydronephrosis. ADRENAL GLANDS: Within normal limits. VASCULAR: There is no aortic aneurysm. BOWEL/MESENTERY: There is mild fluid distention of the duodenum and most proximal loops of jejunum. There is also asso ciated smooth wall thickening. No stranding of the adjacent fat. The remaining small bowel is normal in caliber as is the colon. A few colonic diverticuli seen. No acute inflammation. No free air or shiela e fluid. ABDOMINAL WALL: Within normal limits. RETROPERITONEUM: There is no lymphadenopathy. BLADDER: No wall thickening or mass. REPRODUCTIVE: Within normal limits. INGUINAL: There is no lymphadenopathy or hernia. MUSCULOSKELETAL: Within normal limits for patient age. CONCLUSION: 1. Mild fluid distention and smooth wall thickening of the duodenum and most proximal jejunum suggest ing an enteritis. No free air or free fluid. Ed Hewitt Jr., MD on December 14, 2017 at 13:44 Board Certified Radiologist. This report was verified electronically.
[2017-12-14 14:29] LABS: BILIRUBIN, URINE NEG (NEG); BLOOD, URINE MOD (NEG); GLUCOSE,URINE NEG (NEG); KETONE, URINE 15 mg/dL (NEG); NITRITE,URINE NEG (NEG); URINE LEUKOCYTE ESTERASE NEG (NEG)
[2017-12-14 14:31] LABS: URINE COLOR YELLOW (YELLW/STRAW)
[2017-12-14 14:36] LABS: RBC, URINE 0-3 /hpf (0-3)
[2017-12-14] MEDS ORDERED: ZOFR4TAB3 SL (14:47)
[2017-12-14] MEDS ORDERED: DICY10 PO (14:47)
== END 2017-12-14 15:25 | disposition home or self-care (01) ==
LOC: PHED 11:40
DX: K52.9 Noninfective gastroenteritis and colitis, unspecified (principal); B19.20 Unspecified viral hepatitis C without hepatic coma; E78.00 Pure hypercholesterolemia, unspecified; I11.0 Hypertensive heart disease with heart failure; I50.9 Heart failure, unspecified; F41.9 Anxiety disorder, unspecified; K74.60 Unspecified cirrhosis of liver; F17.290 Nicotine dependence, other tobacco product, uncomplicated
CPT/HCPCS: 74177; 80053; 81001; 83690; 85025; 96361; 96372; 96374; 99284; J0500; J2405; J7030; Q9967

== ENCOUNTER 2018-03-06 07:45 | Emergency (ER) | payer OTHER ==
[~2018-03-06] VITALS: Ht 177.8 cm; Wt 70.0 kg
[~2018-03-06 07:45] MED LIST changes: +DICY10 PO; +ZOFR4TAB3 SL
[2018-03-06 07:50] VITALS: BP 152/82; PULSE 96; RESP 16; TEMP 98.2; O2SAT 99
--- NOTE | 2018-03-06 09:10 | PD ---
HPI Chief Complaint: GI Complaint Time Seen by Provider: 09:02 Travel History International Travel<30 days: No Contact w/Intl Traveler<30days: No Traveled to known affect area: No History of Present Illness HPI This 58-year-old male is complaining of epigastric pain and vomiting. Says he been sick for a couple of days. He denies any alcohol use. He had a similar presentation last September at which time he had a bowel obstruction. He was treated nonoperatively and improved. He has never had any abdominal surgery. He says that he has been scheduled for a mitral valve replacement. He says that he had sepsis years ago when he was an IV drug user but he denies any recent IV drug use. He has had persistent vomiting. Pain is crampy in nature PFSH Past Medical History Hx Anticoagulant Therapy: No Anxiety: Yes Heart Rhythm Problems: No Cancer: No Cardiovascular Problems: Yes (Endocarditis) High Cholesterol: Yes Chest Pain: No Congestive Heart Failure: Yes Diabetes: No Diminished Hearing: No Endocrine: No Gastrointestinal Disorders: Yes (cirrhosis liver) Genitourinary: No Hepatitis: Yes (HEP C) Herniated Disk: Yes (HAD BULGING DISC ONLY) Hypertension: Yes Immune Disorder: No Kidney Stones: Yes Musculoskeletal: Yes Neurologic: Yes (LEG PAIN/TREMMORS) Psychiatric: No Reproductive: No Respiratory: No Immunizations Current: Yes Tetanus Vaccination: Unknown Influenza Vaccination: Yes Past Surgical History Abdominal Surgery: No Cardiac Surgery: Yes (dianogsitc cardiac cath 09/09/17) Ear Surgery: No Endocrine Surgery: No Eye Surgery: No Genitourinary Surgery: No Gynecologic Surgery: No Oral Surgery: No Thoracic Surgery: No Other Surgery: Yes Social History Alcohol Use: No Tobacco Use: Yes (10/25 ppd & USES VAPOR CIGS) Substance Use: No (history of heroin abuse, IVDU; denies x 1 year (stated )) Allergies-Medications (Allergen,Severity, Reaction): Coded Allergies: No Known Allergies (Unverified Allergy, Unknown, 03/06/18) Reported Meds & Prescriptions Reported Meds & Active Scripts Active Reported Gabapentin 800 Mg Tab 800 Mg PO TID Zanaflex (Tizanidine HCl) 2 Mg Cap 2 Mg PO TID Furosemide 40 Mg Tab 40 Mg PO DAILY Metoprolol Tartrate 25 Mg Tab 20 Mg PO DAILY Lisinopril 5 Mg Tab 5 Mg PO DAILY Review of Systems General / Constitutional: No: Fever, Chills Eyes: No: Diploplia, Blurred Vision HENT: No: Headaches, Vertigo Cardiovascular: No: Chest Pain or Discomfort, Palpitations Respiratory: No: Cough, Shortness of Breath Gastrointestinal: Positive: Nausea, Vomiting, Abdominal Pain, No: Diarrhea Genitourinary: No: Urgency, Frequency Musculoskeletal: No: Myalgias, Arthralgias Skin: No Rash, No Itching Neurologic: No: Weakness Endocrine: No: Heat Intolerance, Cold Intolerance Hematologic/Lymphatic: No: Easy Bruising Physical Exam Narrative GENERAL: Well-developed male SKIN: Focused skin assessment warm/dry. HEAD: Atraumatic. Normocephalic. EYES: Pupils equal and round. No scleral icterus. No injection or drainage. ENT: No nasal bleeding or discharge. Mucous membranes pink and moist. NECK: Trachea midline. No JVD. CARDIOVASCULAR: Regular rate and rhythm. No murmur appreciated. RESPIRATORY: No accessory muscle use. Clear to auscultation. Breath sounds equal bilaterally. GASTROINTESTINAL: Abdomen soft, there is some epigastric tenderness, nondistended. Hepatic and splenic margins not palpable. MUSCULOSKELETAL: No obvious deformities. No clubbing. No cyanosis. No edema. NEUROLOGICAL: Awake and alert. No obvious cranial nerve deficits. Motor grossly within normal limits. Normal speech. PSYCHIATRIC: Appropriate mood and affect; insight and judgment normal. Data Data Last Documented VS Vital Signs Date Time Temp Pulse Resp B/P (MAP) Pulse Ox O2 Delivery O2 Flow Rate FiO2 03/06/18 10:30 72 16 148/70 (96) 100 Room Air 03/06/18 07:50 98.2 Orders Orders Complete Blood Count With Diff (03/06/18 09:06) Comprehensive Metabolic Panel (03/06/18 09:06) Lipase (03/06/18 09:06) Urinalysis - C+S If Indicated (03/06/18 09:06) Ct Abd/Pel W Iv Contrast(Rout) (03/06/18 09:06) Sodium Chlor 0.9% 1000 Ml Inj (Ns 1000 M (03/06/18 09:15) Ondansetron Inj (Zofran Inj) (03/06/18 09:15) Hydromorphone Pf Inj (Dilaudid Pf Inj) (03/06/18 09:15) Ondansetron Inj (Zofran Inj) (03/06/18 09:45) Iohexol 350 Inj (Omnipaque 350 Inj) (03/06/18 10:27) Hydromorphone Pf Inj (Dilaudid Pf Inj) (03/06/18 10:45) Labs Laboratory Tests Test 03/06/18 09:20 03/06/18 09:28 Urine Collection Type CLEAN CATCH Urine Color YELLOW Urine Turbidity CLEAR Urine pH 5.5 Urine Specific [place] GREATER/EQUAL 1.030 Urine Protein NEG mg/dL Urine Glucose (UA) NEG mg/dL Urine Ketones 40 mg/dL Urine Occult Blood LARGE Urine Nitrite NEG Urine Bilirubin NEG Urine Urobilinogen 0.2 MG/DL Urine Leukocyte Esterase NEG Urine RBC 20-24 /hpf Urine Squamous Epithelial Cells 0-5 /hpf Microscopic Urinalysis Comment CULT NOT INDICATED Urine Collection Time 09:20 White Blood Count 10.8 TH/MM3 Red Blood Count 5.13 MIL/MM3 Hemoglobin 15.9 GM/DL Hematocrit 46.3 % Mean Corpuscular Volume 90.3 FL Mean Corpuscular Hemoglobin 31.1 PG Mean Corpuscular Hemoglobin Concent 34.4 % Red Cell Distribution Width 13.8 % Platelet Count 227 TH/MM3 Mean Platelet Volume 8.3 FL Neutrophils (%) (Auto) 82.7 % Lymphocytes (%) (Auto) 9.9 % Monocytes (%) (Auto) 4.9 % Eosinophils (%) (Auto) 0.3 % Basophils (%) (Auto) 2.2 % Neutrophils # (Auto) 9.0 TH/MM3 Lymphocytes # (Auto) 1.1 TH/MM3 Monocytes # (Auto) 0.5 TH/MM3 Eosinophils # (Auto) 0.0 TH/MM3 Basophils # (Auto) 0.2 TH/MM3 CBC Comment DIFF FINAL Differential Comment Blood Urea Nitrogen 19 MG/DL Creatinine 1.20 MG/DL Random Glucose 111 MG/DL Total Protein 8.5 GM/DL Albumin 4.2 GM/DL Calcium Level 9.3 MG/DL Alkaline Phosphatase 111 U/L Aspartate Amino Transf (AST/SGOT) 17 U/L Alanine Aminotransferase (ALT/SGPT) 22 U/L Total Bilirubin 0.9 MG/DL Sodium Level 140 MEQ/L Potassium Level 5.0 MEQ/L Chloride Level 104 MEQ/L Carbon Dioxide Level 27.0 MEQ/L Anion Gap 9 MEQ/L Estimat Glomerular Filtration Rate 62 ML/MIN Lipase 108 U/L [facility] Medical Decision Making Medical Screen Exam Complete: Yes Emergency Medical Condition: Yes Medical Record Reviewed: Yes Differential Diagnosis Differential includes nonspecific abdominal pain, bowel obstruction gastroenteritis Narrative Course White count is 10,000. Patient has been given some IV fluids. A CT scan was obtained and does not show obstruction. He does have a large amount of stool present. He will be given Dulcolax. He will be released with prescription for Zofran Diagnosis Primary Impression: Nonspecific abdominal pain Scripts Dicyclomine (Dicyclomine) 20 Mg Tab 20 MG PO TID for Bowel Management, #20 TAB 0 Refills Prov: Td Saucedo MD 03/06/18 Ondansetron Odt (Zofran Odt) 4 Mg Tab 4 MG SL Q6HR Y for Nausea/Vomiting, #10 TAB 0 Refills Prov: Td Saucedo MD 03/06/18 Disposition: 01 DISCHARGE HOME Condition: Stable Td Saucedo MD March 06, 2018 09:10
[2018-03-06] MEDS ORDERED: SODIUM CHLOR 0.9% 1000 ML INJ 1,000 ML IV ONE (09:15)
[2018-03-06] MEDS ORDERED: ONDANSETRON HCL 4 MG/2 ML VIAL IV PUSH ONE ×2 (09:15→09:45)
[2018-03-06] MEDS ORDERED: HYDROmorphone HCL PF 2 MG/ML VIAL IV PUSH ONE ×2 (09:15→10:45)
[2018-03-06 09:41] LABS: BASOPHIL # 0.2 TH/MM3 (0-0.2); BASOPHIL % 2.2 % (0.0-2.0); EOSINOPHIL % 0.3 % (0.0-4.0); HEMATOCRIT 46.3 % (39.0-51.0); HEMOGLOBIN 15.9 GM/DL (13.0-17.0); LYMPH % 9.9 % (9.0-44.0); LYMPHOCYTE # 1.1 TH/MM3 (1.0-4.8); MEAN CELL VOLUME 90.3 FL (80.0-100.0); MEAN CORPUSCULAR HEMOGLOBIN 31.1 PG (27.0-34.0); MEAN CORPUSCULAR HGB CONC 34.4 % (32.0-36.0); MEAN PLATELET VOLUME 8.3 FL (7.0-11.0); MONO % 4.9 % (0.0-8.0); MONOCYTE # 0.5 TH/MM3 (0-0.9); NEUT % 82.7 % (16.0-70.0); PLATELET COUNT 227 TH/MM3 (150-450); RED BLOOD COUNT 5.13 MIL/MM3 (4.50-5.90); RED CELL DISTRIBUTION WIDTH 13.8 % (11.6-17.2); WHITE BLOOD COUNT 10.8 TH/MM3 (4.0-11.0)
[2018-03-06 09:42] LABS: BLOOD, URINE LARGE (NEG); GLUCOSE,URINE NEG (NEG); KETONE, URINE 40 mg/dL (NEG); NITRITE,URINE NEG (NEG); PH, URINE 5.5 (5.0-8.5); URINE COLOR YELLOW (YELLW/STRAW); URINE LEUKOCYTE ESTERASE NEG (NEG)
[2018-03-06 09:51] LABS: BILIRUBIN, URINE NEG (NEG)
[2018-03-06 09:52] LABS: ALBUMIN 4.2 GM/DL (3.4-5.0); CALCIUM 9.3 MG/DL (8.5-10.1)
[2018-03-06 09:52] LABS: SQUAMOUS EPITHELIAL CELL URINE 0-5 /hpf (0-5)
[2018-03-06 09:53] LABS: GLUCOSE,RANDOM 111 MG/DL (74-106)
[2018-03-06 09:56] LABS: ALT (GPT) 22 U/L (12-78); GLOMERULAR FILTRATION RATE 62 ML/MIN (>89)
[2018-03-06 09:57] LABS: TOTAL BILIRUBIN ADULT 0.9 MG/DL (0.2-1.0); TOTAL PROTEIN 8.5 GM/DL (6.4-8.2)
[2018-03-06 09:58] LABS: ALKALINE PHOSPHATASE 111 U/L (45-117); CHLORIDE 104 MEQ/L (98-107); SODIUM (NA) 140 MEQ/L (136-145)
[2018-03-06 10:06] LABS: AST (GOT) 17 U/L (15-37); BLOOD UREA NITROGEN 19 MG/DL (7-18)
[2018-03-06] MEDS ORDERED: IOHEXOL 350 MG/ML 10 ML VIAL (for RAD DIAG) IVCONTRAST ONE (10:27)
[2018-03-06 10:30] VITALS: BP 148/70; PULSE 72; RESP 16; O2SAT 100
--- NOTE | 2018-03-06 10:55 | RADRPT ---
EXAM DATE/TIME: 03/06/2018 10:17 [place] COMPARISON: CT ABDOMEN & PELVIS W CONTRAST, December 14, 2017, 13:31. INDICATIONS : Epigastric pain. Nausea, vomiting and constipation. IV CONTRAST: 85 cc Omnipaque 350 (iohexol) IV ORAL CONTRAST: No oral contrast ingested. RADIATION DOSE: 6.99 CTDIvol (mGy) MEDICAL HISTORY : Congestive heart failure. Renal calculi. Cirrhosis.Hypertension. SURGICAL HISTORY : None. ENCOUNTER: Initial ACUITY: 2 days PAIN SCALE: 9/10 LOCATION: Epigastric TECHNIQUE: Volumetric scanning of the abdomen and pelvis was performed. Using automated exposure control and ad justment of the mA and/or kV according to patient size, radiation dose was kept as low as reasonably achievable to obtain optimal diagnostic quality images. DICOM format image data is available electro nically for review and comparison. FINDINGS: The lower lungs are clear. The liver and gallbladder are unremarkable Spleen and pancreas appear normal The adrenal glands are unremarkable There is symmetrical renal function There is no ascites or adenopathy appreciated. In the pelvis there are multiple diverticuli in the sigmoid colon without diverticulitis. Large bolus of stool is seen in the rectum. There is no free fluid. There is no free air Review of bone windows reveals only degenerative changes. CONCLUSION: Large amount of stool, otherwise negative Octaviano Plummer MD FACR on March 06, 2018 at 10:50 Board Certified Radiologist. This report was verified electronically.
[2018-03-06] MEDS ORDERED: DICY20TA10 PO (11:16)
[2018-03-06] MEDS ORDERED: ZOFR4TAB3 SL (11:16)
[2018-03-06] MEDS ORDERED: BISACODYL 10 MG SUPP RECTAL ONE (11:30)
[2018-03-06 11:31] VITALS: RESP 16
[2018-03-06 11:50] VITALS: BP 135/82
== END 2018-03-06 12:06 | disposition home or self-care (01) ==
LOC: PHED 07:45
DX: R10.13 Epigastric pain (principal); R11.2 Nausea with vomiting, unspecified; F41.9 Anxiety disorder, unspecified; I11.0 Hypertensive heart disease with heart failure; I50.9 Heart failure, unspecified; E78.00 Pure hypercholesterolemia, unspecified; K74.60 Unspecified cirrhosis of liver; F17.200 Nicotine dependence, unspecified, uncomplicated; Z79.899 Other long term (current) drug therapy
CPT/HCPCS: 74177; 80053; 81001; 83690; 85025; 96374; 96375; 96376; 99284; J1170; J2405; J7030; Q9967

== ENCOUNTER 2018-04-07 19:52 | Emergency (ER) | payer OTHER ==
[~2018-04-07 19:52] MED LIST changes: -DICY10 PO; +DICY20TA10 PO
[2018-04-07 19:54] VITALS: BP 145/75; PULSE 107; RESP 20; TEMP 97.5; O2SAT 100
[2018-04-07] MEDS ORDERED: TRAM50TA PO (20:31)
[2018-04-07] MEDS ORDERED: SODIUM CHLORIDE 0.9% FLUSH 10 ML FLUSH IV FLUSH PRN (21:00)
[2018-04-07] MEDS ORDERED: KETOROLAC TROMETHAMINE 30 MG/ML (IVP) VIAL IVP ONE (21:00)
[2018-04-07 21:19] LABS: AUTOMATED NEUTROPHIL # 11.3 TH/MM3 (1.8-7.7); BASOPHIL # 0.2 TH/MM3 (0-0.2); BASOPHIL % 1.1 % (0.0-2.0); EOSINOPHIL # 0.3 TH/MM3 (0-0.4); EOSINOPHIL % 2.1 % (0.0-4.0); HEMATOCRIT 48.5 % (39.0-51.0); HEMOGLOBIN 16.6 GM/DL (13.0-17.0); LYMPH % 14.6 % (9.0-44.0); LYMPHOCYTE # 2.1 TH/MM3 (1.0-4.8); MEAN CELL VOLUME 93.4 FL (80.0-100.0); MEAN CORPUSCULAR HEMOGLOBIN 31.9 PG (27.0-34.0); MEAN CORPUSCULAR HGB CONC 34.2 % (32.0-36.0); MEAN PLATELET VOLUME 7.7 FL (7.0-11.0); MONO % 3.1 % (0.0-8.0); MONOCYTE # 0.4 TH/MM3 (0-0.9); NEUT % 79.1 % (16.0-70.0); PLATELET COUNT 320 TH/MM3 (150-450); RED BLOOD COUNT 5.19 MIL/MM3 (4.50-5.90); RED CELL DISTRIBUTION WIDTH 13.4 % (11.6-17.2); WHITE BLOOD COUNT 14.3 TH/MM3 (4.0-11.0)
[2018-04-07 21:24] VITALS: O2SAT 100
[2018-04-07] MEDS ORDERED: IOHEXOL 350 MG/ML 10 ML VIAL (for RAD DIAG) IVCONTRAST ONE (21:30)
--- NOTE | 2018-04-07 21:30 | RADRPT ---
EXAM DATE: 04/07/2018 9:25 PM EDT AGE/SEX: 58 years / Male INDICATIONS: Chest pain. CLINICAL DATA: This is the patient's initial encounter. Patient reports that signs and symptoms have been present for 1 day and indicates a pain score of 6/10. MEDICAL/SURGICAL HISTORY: None. None. COMPARISON: No prior exams available for comparison. FINDINGS: A single AP view of the chest demonstrates the lungs to be symmetrically aerated without evidence of mass, infiltrate or effusion. Minimal linear scarring or atelectasis in the perihilar region. The car diomediastinal contours are unremarkable. Osseous structures are intact. CONCLUSION: Minimal linear scarring in the perihilar regions. No active disease. Electronically signed by: Broderick Bernard MD 04/07/2018 9:29 PM EDT
[2018-04-07 21:33] LABS: CHLORIDE 107 MEQ/L (98-107); SODIUM (NA) 140 MEQ/L (136-145)
[2018-04-07 21:36] LABS: CALCIUM 9.2 MG/DL (8.5-10.1)
[2018-04-07 21:37] LABS: ALBUMIN 3.7 GM/DL (3.4-5.0); BICARBONATE 23.5 MEQ/L (21.0-32.0); BLOOD UREA NITROGEN 22 MG/DL (7-18); GLUCOSE,RANDOM 105 MG/DL (74-106)
--- NOTE | 2018-04-07 21:38 | PD ---
HPI Chief Complaint: Abdominal Pain Time Seen by Provider: 20:39 Travel History International Travel<30 days: No Contact w/Intl Traveler<30days: No Traveled to known affect area: No History of Present Illness HPI Patient is a 58 year old male presents to the ER for evaluation of one week history of RUQ abdominal pain. He isolates an area about the size of a silver dollar on the RUQ. States it hurts even to light touch. No rash. States he has had some mild nausea but two weeks ago (before symptoms started) he had blood work with PCP which was 'normal'. He states pain constant, cannot think of any alleviating nor exacerbating factors and certainly not worse with inspiration nor food. PFSH Past Medical History Hx Anticoagulant Therapy: No Anxiety: Yes Heart Rhythm Problems: No Cancer: No Cardiovascular Problems: Yes (Endocarditis) High Cholesterol: Yes Chest Pain: No Congestive Heart Failure: Yes Diabetes: No Diminished Hearing: No Endocrine: No Gastrointestinal Disorders: Yes (cirrhosis liver) Genitourinary: No Hepatitis: Yes (HEP C) Herniated Disk: Yes (HAD BULGING DISC ONLY) Hypertension: Yes Immune Disorder: No Kidney Stones: Yes Musculoskeletal: Yes Neurologic: Yes (LEG PAIN/TREMMORS) Psychiatric: No Reproductive: No Respiratory: No Immunizations Current: Yes Past Surgical History Abdominal Surgery: No Cardiac Surgery: Yes (dianogsitc cardiac cath 09/09/17) Ear Surgery: No Endocrine Surgery: No Eye Surgery: No Genitourinary Surgery: No Gynecologic Surgery: No Oral Surgery: No Thoracic Surgery: No Other Surgery: Yes Social History Alcohol Use: No Tobacco Use: Yes (10/25 ppd & USES VAPOR CIGS) Substance Use: No (history of heroin abuse, IVDU; denies x 1 year (stated )) Allergies-Medications (Allergen,Severity, Reaction): Coded Allergies: No Known Allergies (Unverified Allergy, Unknown, 03/06/18) Reported Meds & Prescriptions Reported Meds & Active Scripts Active Acyclovir 800 Mg Tab 800 Mg PO 5 TIMES A DAY 7 Days Start taking if you develop a rash. DO NOT TAKE WITH XANAFLEX/TIZANIDINE Prednisone 20 Mg Tab 60 Mg PO DAILY 5 Days Start taking if you develop a rash. Reported Tramadol (Tramadol HCl) 50 Mg Tab 50 Mg PO Q6H PRN Gabapentin 800 Mg Tab 800 Mg PO TID Zanaflex (Tizanidine HCl) 2 Mg Cap 2 Mg PO TID Furosemide 40 Mg Tab 40 Mg PO DAILY Metoprolol Tartrate 25 Mg Tab 20 Mg PO DAILY Lisinopril 5 Mg Tab 10 Mg PO DAILY Review of Systems Except as stated in HPI: all other systems reviewed are Neg Physical Exam Narrative GENERAL: WD/WN in nad SKIN: Warm and dry. No rash nor wound HEAD: Atraumatic. Normocephalic. EYES: Pupils equal and round. No scleral icterus. No injection or drainage. ENT: No nasal bleeding or discharge. Mucous membranes pink and moist. NECK: Trachea midline. No JVD. CARDIOVASCULAR: Regular rate and rhythm. RESPIRATORY: No accessory muscle use. Clear to auscultation. Breath sounds equal bilaterally. GASTROINTESTINAL: No rash. Has some reported pain with light touch palpation to the RUQ. Abdomen soft, trivially tender in RUQ. nondistended. Hepatic and splenic margins not palpable. Lau's sign negative, no CVA tenderness. MUSCULOSKELETAL: Extremities without clubbing, cyanosis, or edema. No obvious deformities. NEUROLOGICAL: Awake and alert. No obvious cranial nerve deficits. Motor grossly within normal limits. Five out of 5 muscle strength in the arms and legs. Normal speech. PSYCHIATRIC: Appropriate mood and affect; insight and judgment normal. Data Data Last Documented VS Vital Signs Date Time Temp Pulse Resp B/P (MAP) Pulse Ox O2 Delivery O2 Flow Rate FiO2 04/07/18 22:25 04/07/18 21:55 57 18 96 Room Air 04/07/18 19:54 97.5 Orders Orders Complete Blood Count With Diff (04/07/18 20:51) Comprehensive Metabolic Panel (04/07/18 20:51) Lipase (04/07/18 20:51) Ct Abd/Pel W Iv Contrast(Rout) (04/07/18 20:51) Iv Access Insert/Monitor (04/07/18 20:51) Ecg Monitoring (04/07/18 20:51) Oximetry (04/07/18 20:51) Sodium Chloride 0.9% Flush (Ns Flush) (04/07/18 21:00) Chest, Single Ap (04/07/18 20:51) Ketorolac Inj (Toradol Inj) (04/07/18 21:00) Iohexol 350 Inj (Omnipaque 350 Inj) (04/07/18 21:30) Tramadol (Ultram) (04/07/18 22:30) Ed Discharge Order (04/07/18 22:28) Labs Laboratory Tests Test 04/07/18 21:10 White Blood Count 14.3 TH/MM3 Red Blood Count 5.19 MIL/MM3 Hemoglobin 16.6 GM/DL Hematocrit 48.5 % Mean Corpuscular Volume 93.4 FL Mean Corpuscular Hemoglobin 31.9 PG Mean Corpuscular Hemoglobin Concent 34.2 % Red Cell Distribution Width 13.4 % Platelet Count 320 TH/MM3 Mean Platelet Volume 7.7 FL Neutrophils (%) (Auto) 79.1 % Lymphocytes (%) (Auto) 14.6 % Monocytes (%) (Auto) 3.1 % Eosinophils (%) (Auto) 2.1 % Basophils (%) (Auto) 1.1 % Neutrophils # (Auto) 11.3 TH/MM3 Lymphocytes # (Auto) 2.1 TH/MM3 Monocytes # (Auto) 0.4 TH/MM3 Eosinophils # (Auto) 0.3 TH/MM3 Basophils # (Auto) 0.2 TH/MM3 CBC Comment DIFF FINAL Differential Comment Blood Urea Nitrogen 22 MG/DL Creatinine 1.40 MG/DL Random Glucose 105 MG/DL Total Protein 7.7 GM/DL Albumin 3.7 GM/DL Calcium Level 9.2 MG/DL Alkaline Phosphatase 107 U/L Aspartate Amino Transf (AST/SGOT) 15 U/L Alanine Aminotransferase (ALT/SGPT) 21 U/L Total Bilirubin 0.4 MG/DL Sodium Level 140 MEQ/L Potassium Level 4.1 MEQ/L Chloride Level 107 MEQ/L Carbon Dioxide Level 23.5 MEQ/L Anion Gap 10 MEQ/L Estimat Glomerular Filtration Rate 52 ML/MIN Lipase 310 U/L [facility] Medical Decision Making Medical Screen Exam Complete: Yes Emergency Medical Condition: Yes Differential Diagnosis Shingles prodrome, cholecytitis unlikely, pancreatitis unlikely, muscle strain, gastritis. Narrative Course patient roomed in the ER, i really appreciate his symptoms more as abdominal wall pain then internal pain. However given his age and smoking history will pursue CT scan. Shows femoral artery aneurysm. Patient states had remote cardiac catheterization here and this is likely the culprit. Recommended outpatient vascular surgery consultation. Patient still says he is having pain and i have ordered a dose of ultram for him prior to discharge. His abdomen really is benign and he appears comfortable. Patient asked if he is taking any ultram at home and he say s no but Shefali says that he had script of 40tablets filled on 04/02. Discussed follow up with his PCP and return to ED criteria. Diagnosis Primary Impression: RUQ abdominal pain Additional Impression: Femoral artery aneurysm, left Referrals: Debora Oropeza MD Med/Other Pt SpecificInfo: Prescription(s) given Scripts Acyclovir (Acyclovir) 800 Mg Tab 800 MG PO 5 TIMES A DAY for Mgmt Viral Infection for 7 Days, TAB 0 Refills Start taking if you develop a rash. DO NOT TAKE WITH XANAFLEX/TIZANIDINE Prov: Erick Corrigan MD 04/07/18 Prednisone (Prednisone) 20 Mg Tab 60 MG PO DAILY for 5 Days, #15 TAB 0 Refills Start taking if you develop a rash. Prov: Erick Corrigan MD 04/07/18 Disposition: 01 DISCHARGE HOME Condition: Stable Erick Corrigan MD Apr 07, 2018 21:38
[2018-04-07 21:40] LABS: ALT (GPT) 21 U/L (12-78); AST (GOT) 15 U/L (15-37); GLOMERULAR FILTRATION RATE 52 ML/MIN (>89)
[2018-04-07 21:42] LABS: TOTAL BILIRUBIN ADULT 0.4 MG/DL (0.2-1.0); TOTAL PROTEIN 7.7 GM/DL (6.4-8.2)
[2018-04-07 21:43] LABS: ALKALINE PHOSPHATASE 107 U/L (45-117)
--- NOTE | 2018-04-07 21:45 | RADRPT ---
EXAM DATE: April 07, 2018 AGE/SEX: 58 years / Male INDICATIONS: Right upper quadrant pain. CLINICAL DATA: This is the patient's initial encounter. Patient reports that signs and symptoms have been present for 1 week and indicates a pain score of 9/10. MEDICAL/SURGICAL HISTORY: Congestive heart failure. Renal calculi. Cirrhosis. Hep C. Hyperte nsion. Discectomy, lumbar. ORAL CONTRAST: No oral contrast ingested. RADIATION DOSE: 7.76 CTDI (mGy) COMPARISON: [facility], CT ABDOMEN & PELVIS W CONTRAST, 09/19/2017. . TECHNIQUE: Multiple contiguous axial images were obtained through the abdomen and pelvis following b olus infusion of 90 ml Omnipaque 350 (iohexol) nonionic water-soluble contrast as a single exam dos e. No oral contrast ingested. Using automated exposure control and adjustment of the mA and/or kV ac cording to patient size, the radiation dose was kept as low as reasonably achievable to obtain optima l diagnostic quality images. FINDINGS: Lung bases demonstrate some dependent atelectasis. No acute findings in the liver, spleen, adrenals, kidneys or pancreas. No calcified gallstones or nacho iary ductal dilatation. No pelvic masses or free fluid. There is a focal aneurysm at the left femoral artery near the origin of the profunda femoris measuring up to 11 mm x 8 mm. This does not appear to be significantly change d from prior CTs dating back to August 2017. A previous right-sided pseudoaneurysm has resolved. CONCLUSION: 1. No acute findings within abdomen and pelvis. No calcified gallstones or biliary ductal dilatation . Mild fatty liver. 2. Aneurysm at left femoral artery near origin of profunda, possibly a pseudoaneurysm. However no si gnificant change in appearance since August 2017. Electronically signed by: Broderick Bernard MD 04/07/2018 9:44 PM EDT
[2018-04-07 21:55] VITALS: BP 112/70; PULSE 57; RESP 18; O2SAT 96
[2018-04-07] MEDS ORDERED: PRED20 PO (22:11)
[2018-04-07] MEDS ORDERED: ACYC800T PO (22:11)
[2018-04-07] MEDS ORDERED: traMADol HCL 50 MG TAB PO ONE (22:30)
== END 2018-04-07 22:50 | disposition home or self-care (01) ==
LOC: PHED 19:52
DX: R10.11 Right upper quadrant pain (principal); I72.4 Aneurysm of artery of lower extremity; I11.0 Hypertensive heart disease with heart failure; B19.20 Unspecified viral hepatitis C without hepatic coma; Z72.0 Tobacco use; K74.60 Unspecified cirrhosis of liver
CPT/HCPCS: 71045; 74177; 80053; 83690; 85025; 96374; 99285; J1885; Q9967

== ENCOUNTER 2018-08-02 02:14 | Observation (INO) ==
[2018-08-02] MEDS ORDERED: Ketorolac Inj 30 MG/ML (IVP) Vial IV.PUSH ONE (04:18)
[2018-08-02] MEDS ORDERED: Sod Chloride 0.9% Inj 1,000 ML IV.SIG ONE (04:18)
[2018-08-02] MEDS ORDERED: Morphine Inj 4 MG/ML Vial IV.PUSH ONE (04:18)
[2018-08-02] MEDS ORDERED: Piperacil/Tazo 3.375 GM Premix 50 ML IV.SIG ONE (04:18)
--- NOTE | 2018-08-02 04:18 | ED ---
HPI General Chief Complaint: Abdominal Pain Stated Complaint: Lower rt abd pain x 3 days Time Seen by Provider: 08/02/18 04:15 Source: patient Mode of arrival: ambulatory Limitations: no limitations History of Present Illness HPI narrative: Patient presents with generalized abdominal pain 3 days ago that has progressed to localization to the right lower quadrant. Patient has constant pain in that area. Patient has had persistent nausea with multiple episodes of dry heaves. Patient has had no significant oral or fluid intake for the last couple days. No change in bowel habits but decreased. No history of abdominal surgery. Related Data Home Medications Medication Instructions Recorded Confirmed escitalopram oxalate [Lexapro] 10 mg PO DAILY 07/01/18 08/02/18 gabapentin 800 mg PO TID 07/01/18 08/02/18 lisinopril 20 mg PO DAILY 07/01/18 08/02/18 metoprolol tartrate 12.5 mg PO BID 07/01/18 08/02/18 tizanidine [Zanaflex] 2 mg PO TID PRN 07/01/18 08/02/18 tramadol 50 mg PO BID 07/01/18 08/02/18 Allergies Allergy/AdvReac Type Severity Reaction Status Date / Time No Known Allergies Allergy Verified 08/02/18 03:25 Review of Systems ROS: all other systems reviewed are negative [facility] Medical History Medical History Back pain (Acute) Chronic pain (Acute) Depression (Acute) Hypertension (Acute) Mitral regurgitation (Acute) Neuropathy (Acute) Surgical History Surgical History Previous back surgery (Acute) Social History Social History Substance History: No History of Abuse Second Hand Smoke Exposure: No Smoking Status: Current every day smoker Tobacco Type: Cigarettes How Often Do You Have a Drink Containing Alcohol: Never Recent Travel in [facility] within the Last 8 Weeks: No Recent Out of Country Travel within the Last 8 Weeks: No Immunization History Tetanus Immunization: <5 Years Exam Narrative Exam Narrative: GENERAL: Alert and oriented in acute pain to right lower quadrant abdomen. SKIN: Focused skin assessment warm/dry. HEAD: Atraumatic. Normocephalic. EYES: Pupils equal and round. No scleral icterus. No injection or drainage. ENT: No nasal bleeding or discharge. Mucous membranes pink and moist. NECK: Trachea midline. No JVD. CARDIOVASCULAR: Regular rate and rhythm. No murmur appreciated. RESPIRATORY: No accessory muscle use. Clear to auscultation. Breath sounds equal bilaterally. GASTROINTESTINAL: Decreased bowel sounds tenderness and guarding with rebound to the right lower quadrant. Hepatic and splenic margins not palpable. MUSCULOSKELETAL: No obvious deformities. No clubbing. No cyanosis. No edema. NEUROLOGICAL: Awake and alert. No obvious cranial nerve deficits. Motor grossly within normal limits. Normal speech. PSYCHIATRIC: Appropriate mood and affect; insight and judgment normal. Course Reevaluation(s) Reevaluation #1: Patient has well localized tenderness to the right lower quadrant and leukocytosis. Patient admitted for 23 hours observation and consult and discussion to Dr. Polanco. Time: 06:40 Initial Documented Vital Signs Temperature 98.4 F 08/02/18 02:17 Pulse Rate 103 H 08/02/18 02:17 Respiratory Rate 18 08/02/18 02:17 Blood Pressure 115/81 08/02/18 02:17 Pulse Oximetry 99 08/02/18 02:17 Last Documented Vital Signs Temperature 98.4 F 08/02/18 02:17 Pulse Rate 80 08/02/18 05:30 Respiratory Rate 20 08/02/18 05:30 Blood Pressure 137/75 08/02/18 05:30 Pulse Oximetry 98 08/02/18 05:30 Medical Decision Making MDM Narrative Medical decision making narrative: Patient presents with signs and symptoms consistent with appendicitis. However CT shows evidence of diverticulosis but no diverticulitis and no evidence of appendicitis. Discussed with hospitalist and also general surgery and patient will be treated with antibiotics and followed up and admitted for 23 hours. Medical Screen Exam Complete: Yes Emergency Medical Condition: Yes Lab Data Lab results reviewed: Yes I reviewed the patient's lab results. Result diagrams: 08/02/18 04:10 08/02/18 04:10 Lab Results 08/02/18 08/02/18 08/02/18 Range/Units 04:10 04:10 06:10 CBC w Diff Auto diff final WBC 16.0 H (4.0-11.0) th/mm3 RBC 5.64 (4.50-5.90) mil/mm3 Hgb 17.6 H (13.0-17.0) gm/dL Hct 51.1 H (39.0-51.0) % MCV 90.6 (80.0-100.0) fL MCH 31.1 (27.0-34.0) pg MCHC 34.3 (32.0-36.0) % RDW 13.5 (11.6-17.2) % Plt Count 307 (150-450) th/mm3 MPV 8.7 (7.0-11.0) fL Neut % (Auto) 76.0 H (16.0-70.0) % Lymph % (Auto) 13.6 (9.0-44.0) % [place] % (Auto) 8.2 H (0.0-8.0) % Eos % (Auto) 1.2 (0.0-4.0) % Baso % (Auto) 1.0 (0.0-2.0) % Neut # (Auto) 12.1 H (1.8-7.7) th/mm3 Lymph # (Auto) 2.2 (1.0-4.8) th/mm3 [place] # (Auto) 1.3 H (0.0-0.9) th/mm3 Eos # (Auto) 0.2 (0.0-0.4) th/mm3 Baso # (Auto) 0.2 (0.0-0.2) th/mm3 WBC Differential . Differential Comment . Sodium 139 (136-145) meq/L Potassium 4.2 (3.5-5.1) meq/L Chloride 105 (98-107) meq/L Carbon Dioxide 24.4 (21.0-32.0) meq/L Anion Gap 10 (5-15) meq/L BUN 17 (7-18) mg/dL Creatinine 1.20 (0.60-1.30) mg/dL Estimated GFR 62 L (>89) mL/min Random Glucose 101 (74-106) mg/dL Calcium 9.1 (8.5-10.1) mg/dL Total Bilirubin 0.5 (0.2-1.0) mg/dL AST 21 (15-37) U/L ALT 21 (12-78) U/L Alkaline Phosphatase 108 (45-117) U/L Total Protein 7.7 (6.4-8.2) g/dL Albumin 3.9 (3.4-5.0) g/dL Lipase 342 (73-393) U/L Urine Color Yellow (Yellw/Straw) Urine Clarity Clear (Clear) Urine pH 6.5 (5.0-8.5) Ur Specific [place] 1.010 (1.002-1.035) Urine Protein Trace (Neg-Trace) mg/dL Urine Glucose (UA) Negative (Negative) mg/dL Urine Ketones 40 H (Negative) mg/dL Urine Occult Blood Small H (Negative) Urine Nitrate Negative (Negative) Urine Bilirubin Negative (Negative) Urine Urobilinogen 0.2 (Less than 2) mg/dL Ur Leukocyte Esterase Negative (Negative) Urine RBC 0-3 (0-3) /hpf Urine WBC 0-5 (0-5) /hpf Ur Squamous Epith Cells 0-5 (0-5) /hpf Micro UA Comment Culture not ind Ur Microscopic Review Microscopic reviewed Urine Culture Comments Culture not ind Imaging Data Radiologist's impression: Abdomen/Pelvis CT 08/02/18 04:18 CONCLUSION: 1. Colonic diverticulosis without diverticulitis. Normal appendix. Mild basilar atelectasis. Discharge Plan Discharge Disposition Patient Disposition: 30 Still Patient Physicians Team ED Provider: Eulogio Gerard Rxs /Orders / Referrals /Forms Prescriptions: No Action lisinopril 20 mg Tablet 20 mg PO DAILY RF: 0 tramadol 50 mg Tablet 50 mg PO BID RF: 0 gabapentin 800 mg Tablet 800 mg PO TID RF: 0 escitalopram oxalate [Lexapro] 10 mg Tablet 10 mg PO DAILY RF: 0 metoprolol tartrate 25 mg Tablet 12.5 mg PO BID RF: 0 tizanidine [Zanaflex] 2 mg Capsule 2 mg PO TID PRN (Reason: Pain) RF: 0 Discharge Interventions Interventions: Vital Signs Last Done: 08/02/18 05:30 Status ED Status: With Doctor
[2018-08-02] MEDS ORDERED: Sod Chloride 0.9% Inj 1,000 ML IV.CONT SCH (04:30)
[2018-08-02 04:35] LABS: Baso # (Auto) 0.2 th/mm3 (0.0-0.2); Chloride 105 meq/L (98-107); Eos # (Auto) 0.2 th/mm3 (0.0-0.4); Eos % (Auto) 1.2 % (0.0-4.0); Hematocrit 51.1 % (39.0-51.0); Hemoglobin 17.6 gm/dL (13.0-17.0); Lymph # (Auto) 2.2 th/mm3 (1.0-4.8); Lymph % (Auto) 13.6 % (9.0-44.0); Mean Corpuscular HGB Conc 34.3 % (32.0-36.0); Mean Corpuscular Hemoglobin 31.1 pg (27.0-34.0); Mean Corpuscular Volume 90.6 fL (80.0-100.0); Mean Platelet Volume 8.7 fL (7.0-11.0); Mono # (Auto) 1.3 th/mm3 (0.0-0.9); Mono % (Auto) 8.2 % (0.0-8.0); Neut # (Auto) 12.1 th/mm3 (1.8-7.7); Platelet Count 307 th/mm3 (150-450); Potassium 4.2 meq/L (3.5-5.1); Red Blood Count 5.64 mil/mm3 (4.50-5.90); Red Cell Distribution Width 13.5 % (11.6-17.2); Sodium 139 meq/L (136-145)
[2018-08-02 04:38] LABS: Calcium 9.1 mg/dL (8.5-10.1)
[2018-08-02 04:39] LABS: Albumin 3.9 g/dL (3.4-5.0); Anion Gap 10 meq/L (5-15); Blood Urea Nitrogen 17 mg/dL (7-18); Carbon Dioxide 24.4 meq/L (21.0-32.0); Glucose,Random 101 mg/dL (74-106); Lipase 342 U/L (73-393)
[2018-08-02 04:42] LABS: Alanine Aminotransferase 21 U/L (12-78); Aspartate Aminotransferase 21 U/L (15-37); Glomerular Filtration Rate 62 mL/min (>89)
[2018-08-02 04:43] LABS: Total Protein 7.7 g/dL (6.4-8.2)
[2018-08-02 04:45] LABS: Alkaline Phosphatase 108 U/L (45-117)
[2018-08-02] MEDS ORDERED: Morphine Sulfate Inj 2 MG/ML Vial IV.PUSH ONE (05:46)
--- NOTE | 2018-08-02 05:46 | CT ---
EXAM DATE: 08/02/2018 4:48 AM EDT AGE/SEX: 58 years / Male INDICATIONS: Lower right abdominal pain for three days. CLINICAL DATA: This is the patient's initial encounter. Patient reports that signs and symptoms have been present for 3 days and indicates a pain score of 6/10. MEDICAL/SURGICAL HISTORY: . Back pain. Depression. Hypertension. Neuropathy. Mitral regurgitati on. . Back. ORAL CONTRAST: No oral contrast ingested. RADIATION DOSE: 7.34 CTDI (mGy) COMPARISON: [facility], CT ABDOMEN & PELVIS W CONTRAST, 07/01/2018. . TECHNIQUE: Multiple contiguous axial images were obtained through the abdomen and pelvis following b olus infusion of 90 ml Omnipaque 350 (iohexol) nonionic water-soluble contrast as a single exam dos e. No oral contrast ingested. Using automated exposure control and adjustment of the mA and/or kV ac cording to patient size, radiation dose was kept as low as reasonably achievable to obtain optimal di agnostic quality images. DICOM format image data is available electronically for review and comparis on. FINDINGS: Lung bases are clear except for some dependent atelectasis. No acute findings in the liver, spleen, adrenals, kidneys or pancreas. No calcified gallstones or ancho iary ductal dilatation. No pelvic masses or free fluid. Colonic diverticula without diverticulitis. Appendix is normal. CONCLUSION: 1. Colonic diverticulosis without diverticulitis. Normal appendix. Mild basilar atelectasis. Electronically signed by: Broderick Bernard MD 08/02/2018 5:45 AM EDT
[2018-08-02 06:20] LABS: Bilirubin,Urine Negative (Negative); Clarity,Urine Clear (Clear); Color,Urine Yellow (Yellw/Straw); Glucose,Urine (UA) Negative (Negative); Leukocyte Esterase,Urine Negative (Negative); Nitrite,Urine Negative (Negative); PH,Urine 6.5 (5.0-8.5); Urobilinogen,Urine 0.2 mg/dL (Less than 2)
[2018-08-02 06:24] LABS: RBC,Urine 0-3 /hpf (0-3); WBC,Urine 0-5 /hpf (0-5)
[2018-08-02 06:25] LABS: Squamous Epithelial Cell,Urine 0-5 /hpf (0-5)
[2018-08-02] MEDS: Morphine Sulfate Inj 2 MG/ML Vial IV.PUSH PRN ×5 (07:48→21:29)
--- NOTE | 2018-08-02 11:26 | P.HP ---
History of Present Illness Primary Care Physician: Laila Bautista Chief Complaint: Abdominal pain History of Present Illness: 58-year-old man with a past medical history of hypertension, neuropathy presented to the ED for evaluation of abdominal pain localized to the right lower quadrant times 3 days duration described as constant and sharp associated with dry heaving. Pain rated over 10 in intensity. There is no associated febrile episode. Patient reported 1 episode of diarrhea yesterday. CT abdomen/ pelvis in the ED revealed colonic diverticulosis without diverticulitis, and patient had elevated WBC 8. No prior history of abdominal surgeries. - Diagnosis (1) Diverticulosis large intestine w/o perforation or abscess w/bleeding Review of Systems All other systems reviewed negative except as stated in HPI PMFSH - History History Provided By: Patient - Medical History Medical History: Medical History (Last Reviewed 08/02/18 @ 04:17 by Eulogio Gerard MD) Back pain Chronic pain Depression Hypertension Mitral regurgitation Neuropathy - Surgical History Surgical History: Surgical History (Last Reviewed 08/02/18 @ 04:17 by Eulogio Gerard MD) Previous back surgery - Family History Family History: Family History (Last Updated 08/02/18 @ 11:23 by Abdulaziz Navarro MD) Other No history of heart disease - Tobacco History Second Hand Smoke Exposure: No Tobacco Use In Past 30 Days: Yes Smoking Status: Light tobacco smoker Tobacco Type: Cigarettes - Alcohol History How Often Do You Have a Drink Containing Alcohol: Never - Substance Use History Substance History: Past History - Travel History Recent Travel in the [place] Within the Last 8 Weeks: No Recent Travel Out of the Country Within the Last 8 Weeks: No - Immunization History Tetanus Immunization: <5 Years Medications and Allergies Active Medications: Active Medications Sodium Chloride (Ns Inj) 1,000 mls @ 70 mls/hr IV.CONT .[id number] JOSE Morphine Sulfate (Morphine Inj) 2 mg IV.PUSH Q3H PRN PRN Reason: ABDOMINAL PAIN Last Admin: 08/02/18 07:48 Dose: 2 mg Ondansetron HCl (Zofran Inj) 4 mg IV.PUSH Q6H PRN PRN Reason: NAUSEA OR VOMITING Sodium Chloride (Ns Flush) 2 ml IV.FLUSH PRN PRN PRN Reason: FLUSH AFTER USING IV ACCESS Allergies Allergy/AdvReac Type Severity Reaction Status Date / Time No Known Allergies Allergy Verified 08/02/18 03:25 Home Medications Medication Instructions Recorded Confirmed Type gabapentin 800 mg PO TID 07/01/18 08/02/18 History lisinopril 20 mg PO DAILY 07/01/18 08/02/18 History metoprolol tartrate 12.5 mg PO BID 07/01/18 08/02/18 History tizanidine [Zanaflex] 2 mg PO TID PRN 07/01/18 08/02/18 History tramadol 50 mg PO BID 07/01/18 08/02/18 History Exam Vital signs: Vital Signs 08/02/18 02:17 08/02/18 05:30 08/02/18 07:16 Temperature 98.4 F Pulse Rate 103 H 80 84 Respiratory Rate 18 20 16 Blood Pressure 115/81 137/75 142/84 H Pulse Oximetry 99 98 08/02/18 07:56 08/02/18 08:00 Temperature 97.6 F Pulse Rate 63 Respiratory Rate 18 18 Blood Pressure 139/78 Pulse Oximetry 98 Intake & Output 08/01/18 08/02/18 08/02/18 18:59 06:59 18:59 Intake Total 1050 / 1050 1000 / 1000 Balance 1050 / 1050 1000 / 1000 Weight 98.4 kg Intake: IV 1050 / 1050 1000 / 1000 NS Inj 1,000 ML @ 500 mls/hr IV 1000 / 1000 .CONT .Q2H JOSE Rx#:[id number] Zosyn 3.375 GM Premix 50 ML @ 50 / 50 100 mls/hr IV.SIG ONCE ONE Rx#: [id number] NS Inj 1,000 ML @ Wide Open IV. 1000 / 1000 SIG BOLUS ONE Rx#:[id number] Narrative: GENERAL: NAD SKIN: Warm and dry. HEAD: Atraumatic. Normocephalic. EYES: Pupils equal and round. No scleral icterus. No injection or drainage. ENT: No nasal bleeding or discharge. Mucous membranes pink and moist. NECK: Trachea midline. No JVD. CARDIOVASCULAR: Regular rate and rhythm. RESPIRATORY: No accessory muscle use. Clear to auscultation. Breath sounds equal bilaterally. GASTROINTESTINAL: Abdomen soft, RLQ tender, nondistended. Hepatic and splenic margins not palpable. +BS MUSCULOSKELETAL: Extremities without clubbing, cyanosis, or edema. No obvious deformities. NEUROLOGICAL: Awake and alert. No obvious cranial nerve deficits. Motor grossly within normal limits. Five out of 5 muscle strength in the arms and legs. Normal speech. PSYCHIATRIC: Appropriate mood and affect; insight and judgment normal. Results - Labs CBC & Chem 7: 08/02/18 04:10 08/02/18 04:10 Labs: Laboratory Results - last 24 hr 08/02/18 08/02/18 08/02/18 04:10 04:10 06:10 CBC w Diff Auto diff final WBC 16.0 H RBC 5.64 Hgb 17.6 H Hct 51.1 H MCV 90.6 MCH 31.1 MCHC 34.3 RDW 13.5 Plt Count 307 MPV 8.7 Neut % (Auto) 76.0 H Lymph % (Auto) 13.6 Day % (Auto) 8.2 H Eos % (Auto) 1.2 Baso % (Auto) 1.0 Neut # (Auto) 12.1 H Lymph # (Auto) 2.2 Day # (Auto) 1.3 H Eos # (Auto) 0.2 Baso # (Auto) 0.2 WBC Differential . Differential Comment . Sodium 139 Potassium 4.2 Chloride 105 Carbon Dioxide 24.4 Anion Gap 10 BUN 17 Creatinine 1.20 Estimated GFR 62 L Random Glucose 101 Calcium 9.1 Total Bilirubin 0.5 AST 21 ALT 21 Alkaline Phosphatase 108 Total Protein 7.7 Albumin 3.9 Lipase 342 Urine Color Yellow Urine Clarity Clear Urine pH 6.5 Ur Specific [place] 1.010 Urine Protein Trace Urine Glucose (UA) Negative Urine Ketones 40 H Urine Occult Blood Small H Urine Nitrate Negative Urine Bilirubin Negative Urine Urobilinogen 0.2 Ur Leukocyte Esterase Negative Urine RBC 0-3 Urine WBC 0-5 Ur Squamous Epith Cells 0-5 Micro UA Comment Culture not ind Ur Microscopic Review Microscopic reviewed Urine Culture Comments Culture not ind - Imaging Impressions Abdomen/Pelvis CT 08/02/18 04:18 CONCLUSION: 1. Colonic diverticulosis without diverticulitis. Normal appendix. Mild basilar atelectasis. Caprini VTE Risk Assessment Caprini VTE Risk Assessment: No/Low Risk (score <= 1) Caprini Risk Assessment Model: Point Value = 1 Point Value = 2 Point Value = 3 Point Value = 5 Age 41-60 Minor surgery BMI > 25 kg/m2 Swollen legs Varicose veins or History of unexplained or recurrent spontaneous Oral contraceptives or hormone replacement Sepsis (< 1 month) Serious lung disease, including pneumonia (< 1 month) Abnormal pulmonary function Acute myocardial infarction Congestive heart failure (< 1 month) History of inflammatory bowel disease Medical patient at bed rest Age 61-74 Arthroscopic surgery Major open surgery (> 45 min) Laparoscopic surgery (> 45 min) Malignancy Confined to bed (> 72 hours) Immobilizing plaster cast Central venous access Age >= 75 History of VTE Family history of VTE Factor V Leiden Prothrombin [id number] Lupus anticoagulant Anticardiolipin antibodies Elevated serum homocysteine Heparin-induced thrombocytopenia Other congenital or acquired thrombophilia Stroke (< 1 month) Elective arthroplasty Hip, pelvis, or leg fracture Acute spinal cord injury (< 1 month) Prophylaxis Regimen: Total Risk Factor Score Risk Level Prophylaxis Regimen 0-1 Low Early ambulation 2 Moderate Order ONE of the following: *Sequential Compression Device (SCD) *Heparin 5000 units SQ BID 3-4 Higher Order ONE of the following medications: *Heparin 5000 units SQ TID *Enoxaparin/Lovenox 40 mg SQ daily (WT < 150 kg, CrCl > 30 mL/min) *Enoxaparin/Lovenox 30 mg SQ daily (WT < 150 kg, CrCl > 10-29 mL/min) *Enoxaparin/Lovenox 30 mg SQ BID (WT < 150 kg, CrCl > 30 mL/min) AND/OR *Sequential Compression Device (SCD) 5 or more Highest Order ONE of the following medications: *Heparin 5000 units SQ TID (Preferred with Epidurals) *Enoxaparin/Lovenox 40 mg SQ daily (WT < 150 kg, CrCl > 30 mL/min) *Enoxaparin/Lovenox 30 mg SQ daily (WT < 150 kg, CrCl > 10-29 mL/min) *Enoxaparin/Lovenox 30 mg SQ BID (WT < 150 kg, CrCl > 30 mL/min) AND *Sequential Compression Device (SCD) Assessment and Plan - Assessment (1) Diverticulosis large intestine w/o perforation or abscess w/bleeding Code(s): K57.31 - Diverticulosis of large intestine without perforation or abscess with bleeding Status: Acute - Plan 58-year-old man with Diverticulosis of large intestine without perforation, abscess or bleeding CT abdomen/pelvis noted and reviewed with finding of Colonic diverticulosis without diverticulitis. Normal appendix Will start patient on clear liquid, IV fluid hydration and pain management accordingly with IV parenteral Start empiric Zosyn secondary to elevated WBC, despite no evidence of diverticulitis Hypertension, peripheral neuropathy Resume outpatient medications DVT prophylaxis: Bilateral SCDs GI prophylaxis: PPI
[2018-08-02] MEDS: Sod Chloride 0.9% Inj 1,000 ML IV.CONT SCH (12:07)
[2018-08-02] MEDS: Gabapentin 400 MG Capsule PO SCH ×2 (12:07→18:16)
[2018-08-02] MEDS: Pantoprazole Inj 40 MG Vial IV.PUSH SCH (12:07)
[2018-08-02] MEDS: Metoprolol Tartrate 25 MG Tablet PO SCH (21:29)
[2018-08-03] MEDS: Morphine Sulfate Inj 2 MG/ML Vial IV.PUSH PRN ×4 (02:14→13:39)
[2018-08-03] MEDS: Sod Chloride 0.9% Inj 1,000 ML IV.CONT SCH (05:18)
[2018-08-03 07:05] LABS: Baso # (Auto) 0.1 th/mm3 (0.0-0.2); Baso % (Auto) 0.6 % (0.0-2.0); Eos # (Auto) 0.3 th/mm3 (0.0-0.4); Eos % (Auto) 3.6 % (0.0-4.0); Hematocrit 40.7 % (39.0-51.0); Hemoglobin 13.7 gm/dL (13.0-17.0); Lymph % (Auto) 22.3 % (9.0-44.0); Mean Corpuscular HGB Conc 33.7 % (32.0-36.0); Mean Corpuscular Hemoglobin 31.9 pg (27.0-34.0); Mean Corpuscular Volume 94.7 fL (80.0-100.0); Mean Platelet Volume 8.2 fL (7.0-11.0); Mono # (Auto) 0.9 th/mm3 (0.0-0.9); Mono % (Auto) 10.3 % (0.0-8.0); Neut # (Auto) 5.5 th/mm3 (1.8-7.7); Neut % (Auto) 63.2 % (16.0-70.0); Platelet Count 223 th/mm3 (150-450); Red Cell Distribution Width 13.2 % (11.6-17.2); White Blood Count 8.8 th/mm3 (4.0-11.0)
[2018-08-03 07:36] LABS: Alanine Aminotransferase 14 U/L (12-78); Albumin 2.9 g/dL (3.4-5.0); Alkaline Phosphatase 80 U/L (45-117); Anion Gap 7 meq/L (5-15); Aspartate Aminotransferase 11 U/L (15-37); Blood Urea Nitrogen 7 mg/dL (7-18); Calcium 7.8 mg/dL (8.5-10.1); Carbon Dioxide 22.5 meq/L (21.0-32.0); Chloride 113 meq/L (98-107); Glomerular Filtration Rate Greater Than 89 mL/min (>89); Glucose,Random 82 mg/dL (74-106); Potassium 3.9 meq/L (3.5-5.1); Sodium 142 meq/L (136-145); Total Protein 5.6 g/dL (6.4-8.2)
[2018-08-03] MEDS: Metoprolol Tartrate 25 MG Tablet PO SCH (08:13)
[2018-08-03] MEDS: Gabapentin 400 MG Capsule PO SCH ×2 (08:13→13:39)
[2018-08-03] MEDS ORDERED: Lisinopril 20 MG Tablet PO SCH (09:00)
--- NOTE | 2018-08-03 10:27 | P.PN ---
Subjective Interval history: Follow-up abdominal pain due to colonic diverticulosis August 03, 2018-patient seen and examined, although patient reports some slight improvement of abdominal pain, still has right lower quadrant tenderness. Afebrile. Requesting diet to be advanced. Leukocytosis resolved Physical Exam Vital signs: Vital Signs 08/02/18 12:00 08/02/18 15:48 08/02/18 18:23 Temperature 97.2 F L 97.3 F L Pulse Rate 64 68 Respiratory Rate 18 18 17 Blood Pressure 153/77 H 139/78 Pulse Oximetry 99 98 08/02/18 20:00 08/03/18 00:00 08/03/18 08:00 Temperature 97.9 F 96.5 F L 98.0 F Pulse Rate 71 69 67 Respiratory Rate 20 20 14 Blood Pressure 129/73 130/69 131/80 Pulse Oximetry 100 96 97 Intake & Output 08/02/18 08/03/18 08/03/18 18:59 06:59 18:59 Intake Total 1520 / 1520 1240 / 1240 Balance 1520 / 1520 1240 / 1240 Weight 98.5 kg Intake: IV 1000 / 1000 1000 / 1000 NS Inj 1,000 ML @ 70 mls/hr IV. 1000 / 1000 1000 / 1000 CONT .[id number] JOSE Rx#: [id number] Oral 520 / 520 240 / 240 Other: # Voids 3 6 # Bowel Movements 1 Narrative: GENERAL: NAD SKIN: Warm and dry. HEAD: Atraumatic. Normocephalic. EYES: Pupils equal and round. No scleral icterus. No injection or drainage. ENT: No nasal bleeding or discharge. Mucous membranes pink and moist. NECK: Trachea midline. No JVD. CARDIOVASCULAR: Regular rate and rhythm. RESPIRATORY: No accessory muscle use. Clear to auscultation. Breath sounds equal bilaterally. GASTROINTESTINAL: Abdomen soft, RLQ tender, nondistended. Hepatic and splenic margins not palpable. +BS MUSCULOSKELETAL: Extremities without clubbing, cyanosis, or edema. No obvious deformities. NEUROLOGICAL: Awake and alert. No obvious cranial nerve deficits. Motor grossly within normal limits. Five out of 5 muscle strength in the arms and legs. Normal speech. PSYCHIATRIC: Appropriate mood and affect; insight and judgment normal. Results - Labs CBC & Chem 7: 08/03/18 06:05 08/03/18 06:05 Laboratory Results - last 24 hr 08/03/18 08/03/18 06:05 06:05 CBC w Diff Auto diff final WBC 8.8 RBC 4.30 L Hgb 13.7 D Hct 40.7 MCV 94.7 D MCH 31.9 MCHC 33.7 RDW 13.2 Plt Count 223 MPV 8.2 Neut % (Auto) 63.2 Lymph % (Auto) 22.3 [place] % (Auto) 10.3 H Eos % (Auto) 3.6 Baso % (Auto) 0.6 Neut # (Auto) 5.5 Lymph # (Auto) 2.0 [place] # (Auto) 0.9 Eos # (Auto) 0.3 Baso # (Auto) 0.1 WBC Differential . Differential Comment . Sodium 142 Potassium 3.9 Chloride 113 H D Carbon Dioxide 22.5 Anion Gap 7 BUN 7 Creatinine 0.83 Estimated GFR Greater than 89 Random Glucose 82 Calcium 7.8 L D Total Bilirubin 0.4 AST 11 L ALT 14 Alkaline Phosphatase 80 Total Protein 5.6 L D Albumin 2.9 L D Assessment and Plan - Assessment (1) Diverticulosis large intestine w/o perforation or abscess w/bleeding Code(s): K57.31 - Diverticulosis of large intestine without perforation or abscess with bleeding Status: Acute - Plan 58-year-old man with Diverticulosis of large intestine without perforation, abscess or bleeding CT abdomen/pelvis noted and reviewed with finding of Colonic diverticulosis without diverticulitis. Normal appendix Advance diet as tolerated, IV fluid hydration and pain management accordingly with IV parenteral Hypertension, peripheral neuropathy Continue outpatient medications DVT prophylaxis: Bilateral SCDs GI prophylaxis: PPI Patient's condition improved, he will be discharged home after he tolerated p.o. Discharge patient to home Condition on discharge: Improved Regular Diet as tolerated Ad Lynette activity Rx written: None Follow-up with primary care physician in week
[2018-08-03] MEDS: Pantoprazole Inj 40 MG Vial IV.PUSH SCH (13:39)
== END 2018-08-03 15:54 | disposition home or self-care (01) ==
LOC: PHEDA 02:14 → PHED 02:14 → PH3 08:22
PROVIDERS: ADMIT Hospitalist; ATTEND Hospitalist
DX: D72.829 Elevated white blood cell count, unspecified; G89.29 Other chronic pain; I10 Essential (primary) hypertension; F32.9 Major depressive disorder, single episode, unspecified; M54.9 Dorsalgia, unspecified; K57.30 Diverticulosis of large intestine without perforation or abscess without bleeding; I34.0 Nonrheumatic mitral (valve) insufficiency; G62.9 Polyneuropathy, unspecified; F17.210 Nicotine dependence, cigarettes, uncomplicated

== ENCOUNTER 2018-08-20 09:53 | Observation (INO) ==
[2018-08-20] MEDS ORDERED: Morphine Inj 4 MG/ML Vial IV.PUSH ONE (10:10)
--- NOTE | 2018-08-20 10:13 | ED ---
HPI General Chief Complaint: Chest Pain Stated Complaint: Chest Pain Time Seen by Provider: 08/20/18 10:01 History of Present Illness HPI narrative: Patient is a 58-year-old male who presents with chest pain that started a couple of hours ago while he was lying down. Pain is described as being left-sided, constant, nonradiating, new onset, 8 out of 10, no alleviating or aggravating factors. He was given 2 doses of nitroglycerin and 324mg of aspirin by EMS prior to ER arrival. He denies fever, vomiting, shortness of breath, lower extremity edema, recent travel. He does report nausea and epigastric abdominal pain. Patient did not take his medications today.Clinical Studies Specialist is Dr Cornejo and PCP is Dr Neville Turner. Related Data Home Medications Medication Instructions Recorded Confirmed gabapentin 800 mg PO TID 07/01/18 08/20/18 lisinopril 20 mg PO DAILY 07/01/18 08/20/18 metoprolol tartrate 12.5 mg PO BID 07/01/18 08/20/18 tizanidine [Zanaflex] 2 mg PO TID PRN 07/01/18 08/20/18 tramadol 50 mg PO BID 07/01/18 08/20/18 Allergies Allergy/AdvReac Type Severity Reaction Status Date / Time No Known Allergies Allergy Verified 08/02/18 03:25 Review of Systems ROS: all other systems reviewed are negative [facility] Family History Family History Other No history of heart disease Social History Social History Substance History: No History of Abuse Second Hand Smoke Exposure: No Smoking Status: Former smoker Tobacco Type: Cigarettes How Often Do You Have a Drink Containing Alcohol: Monthly or less Recent Travel in [facility] within the Last 8 Weeks: No Recent Out of Country Travel within the Last 8 Weeks: No Immunization History Tetanus Immunization: <5 Years Exam Narrative Exam Narrative: GENERAL: No acute distress. SKIN: Focused skin assessment warm/dry. HEAD: Atraumatic. Normocephalic. EYES: Pupils equal and round. No scleral icterus. No injection or drainage. ENT: No nasal bleeding or discharge. Mucous membranes pink and moist. NECK: Trachea midline. No JVD. CARDIOVASCULAR: Regular rate and rhythm. murmur appreciated. 2+ radial and DP pulses bilaterally. RESPIRATORY: No accessory muscle use. Clear to auscultation. Breath sounds equal bilaterally. GASTROINTESTINAL: Abdomen soft, non-tender, nondistended. Hepatic and splenic margins not palpable. MUSCULOSKELETAL: No obvious deformities. No clubbing. No cyanosis. No edema. NEUROLOGICAL: Awake and alert. No obvious cranial nerve deficits. Motor grossly within normal limits. Normal speech. PSYCHIATRIC: Appropriate mood and affect; insight and judgment normal. Course Initial Documented Vital Signs Temperature 97.4 F L 08/20/18 09:55 Pulse Rate 79 08/20/18 09:55 Respiratory Rate 20 08/20/18 09:55 Blood Pressure 146/83 H 08/20/18 09:55 Pulse Oximetry 99 08/20/18 09:55 Last Documented Vital Signs Temperature 97.4 F L 08/20/18 09:55 Pulse Rate 79 08/20/18 11:00 Respiratory Rate 20 08/20/18 11:00 Blood Pressure 141/76 H 08/20/18 11:00 Pulse Oximetry 100 08/20/18 11:00 Medical Decision Making [facility] Narrative Medical decision making narrative: Patient presents to the emergency department complaining of chest pain. Patient placed on a compliance monitor, continuous pulse ox, and IV access obtained. Chest x-ray, labs, EKG, and 2 mg IV morphine ordered. 1105: Patient requesting his dose of gabapentin. He takes 800mg po TID, I have ordered 800mg po X1. His corrected calcium is decreased, given 500mg po calcium carb. Will admit to chest pain obs for further eval and management. 1152: Patient evaluated by chest pain staff in ER. Advised that he is admission to [facility] because he had a cath at an outside facility last year and states that he was told his arteries are fine but he needs mitral valve replacement. He was to get the surgery done the spring of this year but he got scared and didn't do it. 1153: Call center called for hospitalist admission. 1207: Patient admitted to Dr Velez. Medical Screen Exam Complete: Yes Emergency Medical Condition: Yes Lab Data Result diagrams: 08/20/18 10:14 08/20/18 10:14 Lab Results 08/20/18 08/20/18 08/20/18 Range/Units 10:14 10:14 10:14 WBC 7.8 (4.0-11.0) th/mm3 RBC 4.52 (4.50-5.90) mil/mm3 Hgb 14.7 (13.0-17.0) gm/dL Hct 42.5 (39.0-51.0) % MCV 94.0 (80.0-100.0) fL MCH 32.6 (27.0-34.0) pg MCHC 34.7 (32.0-36.0) % RDW 14.0 (11.6-17.2) % Plt Count 170 (150-450) th/mm3 MPV 8.0 (7.0-11.0) fL Neut % (Auto) 76.4 H (16.0-70.0) % Lymph % (Auto) 11.8 (9.0-44.0) % [place] % (Auto) 9.0 H (0.0-8.0) % Eos % (Auto) 2.3 (0.0-4.0) % Baso % (Auto) 0.5 (0.0-2.0) % Neut # (Auto) 6.0 (1.8-7.7) th/mm3 Lymph # (Auto) 0.9 L (1.0-4.8) th/mm3 [place] # (Auto) 0.7 (0.0-0.9) th/mm3 Eos # (Auto) 0.2 (0.0-0.4) th/mm3 Baso # (Auto) 0.0 (0.0-0.2) th/mm3 WBC Differential . Differential Comment Auto diff final PT 10.7 (9.8-11.6) sec INR 1.1 Ratio APTT 31.4 H (24.3-30.1) sec Sodium 142 (136-145) meq/L Potassium 3.9 (3.5-5.1) meq/L Chloride 111 H (98-107) meq/L Carbon Dioxide 23.4 (21.0-32.0) meq/L Anion Gap 8 (5-15) meq/L BUN 13 (7-18) mg/dL Creatinine 0.94 (0.60-1.30) mg/dL Estimated GFR 82 L (>89) mL/min Random Glucose 80 (74-106) mg/dL Calcium 7.4 L* (8.5-10.1) mg/dL Prot Corrected Calcium 7.9 L (8.5-10.1) mg/dL Magnesium 1.7 (1.5-2.5) mg/dL Total Bilirubin 0.6 (0.2-1.0) mg/dL AST 14 L (15-37) U/L ALT 14 (12-78) U/L Alkaline Phosphatase 91 (45-117) U/L Total Creatine Kinase 172 (39-308) U/L CK-MB (CK-2) Less than 1.0 (0.5-3.6) ng/mL Troponin I Less than 0.02 L (0.02-0.05) ng/mL B-Natriuretic Peptide (0-100) pg/mL Total Protein 6.1 L (6.4-8.2) g/dL Albumin 3.0 L (3.4-5.0) g/dL Lipase 61 L (73-393) U/L Urine Opiates Screen (Neg) Ur Barbiturates Screen (Neg) Ur Amphetamines Screen (Neg) U Benzodiazepines Scrn (Neg) Urine Cocaine Screen (Neg) U Cannabinoids Screen (Neg) 08/20/18 08/20/18 Range/Units 10:14 10:59 WBC (4.0-11.0) th/mm3 RBC (4.50-5.90) mil/mm3 Hgb (13.0-17.0) gm/dL Hct (39.0-51.0) % MCV (80.0-100.0) fL MCH (27.0-34.0) pg MCHC (32.0-36.0) % RDW (11.6-17.2) % Plt Count (150-450) th/mm3 MPV (7.0-11.0) fL Neut % (Auto) (16.0-70.0) % Lymph % (Auto) (9.0-44.0) % Highlands % (Auto) (0.0-8.0) % Eos % (Auto) (0.0-4.0) % Baso % (Auto) (0.0-2.0) % Neut # (Auto) (1.8-7.7) th/mm3 Lymph # (Auto) (1.0-4.8) th/mm3 [place] # (Auto) (0.0-0.9) th/mm3 Eos # (Auto) (0.0-0.4) th/mm3 Baso # (Auto) (0.0-0.2) th/mm3 WBC Differential Differential Comment PT (9.8-11.6) sec INR Ratio APTT (24.3-30.1) sec Sodium (136-145) meq/L Potassium (3.5-5.1) meq/L Chloride (98-107) meq/L Carbon Dioxide (21.0-32.0) meq/L Anion Gap (5-15) meq/L BUN (7-18) mg/dL Creatinine (0.60-1.30) mg/dL Estimated GFR (>89) mL/min Random Glucose (74-106) mg/dL Calcium (8.5-10.1) mg/dL Prot Corrected Calcium (8.5-10.1) mg/dL Magnesium (1.5-2.5) mg/dL Total Bilirubin (0.2-1.0) mg/dL AST (15-37) U/L ALT (12-78) U/L Alkaline Phosphatase (45-117) U/L Total Creatine Kinase (39-308) U/L CK-MB (CK-2) (0.5-3.6) ng/mL Troponin I (0.02-0.05) ng/mL B-Natriuretic Peptide 187 H (0-100) pg/mL Total Protein (6.4-8.2) g/dL Albumin (3.4-5.0) g/dL Lipase (73-393) U/L Urine Opiates Screen Pos H (Neg) Ur Barbiturates Screen Neg (Neg) Ur Amphetamines Screen Neg (Neg) U Benzodiazepines Scrn Neg (Neg) Urine Cocaine Screen Neg (Neg) U Cannabinoids Screen Neg (Neg) Imaging Data Radiologist's impression: Chest X-Ray 08/20/18 10:10 CONCLUSION: Bilateral discoid atelectasis. ECG Data Attestation: I personally reviewed and interpreted this ECG as follows: (Sinus rhythm, rate 79, left axis deviation, normal intervals, T wave inversion in leads III and V1) Discharge Plan Discharge Disposition Patient Disposition: 30 Still Patient Discharge Condition Condition: Stable Discharge Details Diagnosis: Chest pain, Hypocalcemia Physicians Team ED Provider: Alee Silva Attending Provider: Suzette Weinberg Status ED Status: Admitted Observation Patient
[2018-08-20 10:30] LABS: Baso % (Auto) 0.5 % (0.0-2.0); Eos # (Auto) 0.2 th/mm3 (0.0-0.4); Eos % (Auto) 2.3 % (0.0-4.0); Hematocrit 42.5 % (39.0-51.0); Hemoglobin 14.7 gm/dL (13.0-17.0); Lymph # (Auto) 0.9 th/mm3 (1.0-4.8); Lymph % (Auto) 11.8 % (9.0-44.0); Mean Corpuscular HGB Conc 34.7 % (32.0-36.0); Mean Corpuscular Hemoglobin 32.6 pg (27.0-34.0); Mono # (Auto) 0.7 th/mm3 (0.0-0.9); Neut % (Auto) 76.4 % (16.0-70.0); Platelet Count 170 th/mm3 (150-450); Red Blood Count 4.52 mil/mm3 (4.50-5.90); White Blood Count 7.8 th/mm3 (4.0-11.0)
[2018-08-20 10:37] LABS: Activated Partial Thrombo Time 31.4 sec (24.3-30.1); INR 1.1 Ratio; Prothrombin Time 10.7 sec (9.8-11.6)
[2018-08-20 10:48] LABS: Alanine Aminotransferase 14 U/L (12-78); Anion Gap 8 meq/L (5-15); Aspartate Aminotransferase 14 U/L (15-37); Blood Urea Nitrogen 13 mg/dL (7-18); Calcium 7.4 mg/dL (8.5-10.1); Carbon Dioxide 23.4 meq/L (21.0-32.0); Chloride 111 meq/L (98-107); Glomerular Filtration Rate 82 mL/min (>89); Glucose,Random 80 mg/dL (74-106); Lipase 61 U/L (73-393); Magnesium 1.7 mg/dL (1.5-2.5); Potassium 3.9 meq/L (3.5-5.1); Sodium 142 meq/L (136-145)
--- NOTE | 2018-08-20 10:51 | XR ---
EXAM DATE: 08/20/2018 10:43 AM EDT AGE/SEX: 58 years / Male INDICATIONS: Chest pain sudden onset today. CLINICAL DATA: This is the patient's initial encounter. Patient reports that signs and symptoms have been present for 1 day and indicates a pain score of 5/10. MEDICAL/SURGICAL HISTORY: None. None. COMPARISON: [facility], CHEST SINGLE AP, 04/07/2018. . FINDINGS: A single AP view of the chest demonstrates discoid atelectasis in the midlungs bilaterally without ev idence of mass, infiltrate or effusion. The cardiomediastinal contours are unremarkable. Osseous st ructures are intact. CONCLUSION: Bilateral discoid atelectasis. Electronically signed by: Abdulaziz Pabon MD 08/20/2018 10:49 AM EDT
[2018-08-20 10:52] LABS: Alkaline Phosphatase 91 U/L (45-117); Creatine Kinase 172 U/L (39-308); Total Protein 6.1 g/dL (6.4-8.2)
[2018-08-20] MEDS ORDERED: Gabapentin 400 MG Capsule PO ONE (11:02)
[2018-08-20] MEDS ORDERED: Calcium Carbonate 500 MG Tablet PO ONE (11:06)
[2018-08-20 11:43] LABS: Bilirubin,Urine Negative (Negative); Clarity,Urine Clear (Clear); Color,Urine Yellow (Yellw/Straw); Glucose,Urine (UA) Negative (Negative); Leukocyte Esterase,Urine Negative (Negative); Mucus,Urine Few /lpf (Occasional); Nitrite,Urine Negative (Negative); Specific Gravity,Urine 1.021 (1.002-1.035); Urobilinogen,Urine 4 or Greater mg/dL (Less than 2)
[2018-08-20 11:51] LABS: Amphetamine Screen,Urine Neg (Neg); Barbiturate Screen,Urine Neg (Neg); Cannabinoid Screen,Urine Neg (Neg); Cocaine Screen,Urine Neg (Neg); Opiate Screen,Urine Pos (Neg)
[2018-08-20] MEDS ORDERED: Morphine Sulfate Inj 2 MG/ML Vial IV.PUSH ONE (11:58)
[2018-08-20] MEDS ORDERED: Bisacodyl 10 MG Supp RECTAL PRN (12:02)
[2018-08-20] MEDS ORDERED: Acetaminophen 325 MG Tablet PO PRN (12:02)
--- NOTE | 2018-08-20 12:05 | P.HP ---
History of Present Illness Primary Care Physician: Laila Bautista Chief Complaint: chest pain History of Present Illness: Patient is a pleasant 58-year-old male with past medical history of valvulopathy mitral valve, chronic back pain, neuropathy this is Dr. Velez for the patient is a 32. 3 1 who presents with chest pain that started a couple of hours [employer] while he was lying down. Pain is described as being left-sided, sharp , intermittent, nonradiating, new onset, 8 out of 10 in intensity, no alleviating or aggravating factors. He was given 2 doses of nitroglycerin and 324mg of aspirin by EMS prior to ER arrival. Says meds in the ED helped a little with the pain. He denies fever, vomiting, shortness of breath, lower extremity edema, recent travel. He does report nausea and epigastric abdominal pain. Patient did not take his medications today.Tool Honing Machine Set Up Operator is Dr Cornejo and PCP is Dr Neville Turner. Says he was supposed to follow up with cardiology in February this year for poss MV surgical evaluation. Patient says he did not follow up for surgical evaluation as he thinks recovery is cumbersome after surgery. Says so far he has been without significant symptoms. Says he is taking lasix at times when his feet are swollen. Denies LE edema at this time. Says he has a normal cardiac cath last year wuith his cardiology Dr In [place]. Says he only has to do the MV repair. Review of Systems All other systems reviewed negative except as stated in HPI PMFSH - History History Provided By: Grain Elevator Motor Starter / EMT - Medical History Medical History: Medical History (Last Reviewed 08/20/18 @ 12:19 by Opal Velez MD) Back pain Chronic pain Depression Hypertension Mitral regurgitation Neuropathy - Surgical History Surgical History: Surgical History (Last Reviewed 08/20/18 @ 12:19 by Opal Velez MD) Previous back surgery - Family History Family History: Family History (Last Updated 08/20/18 @ 12:20 by pOal eVlez MD) Sister Diabetes Other No history of heart disease - Social History I have reviewed the patient's Social History: Yes - Tobacco History Second Hand Smoke Exposure: No Smoking Status: Former smoker Tobacco Type: Cigarettes - Alcohol History How Often Do You Have a Drink Containing Alcohol: Monthly or less - Substance Use History Substance History: No History of Abuse - Travel History Recent Travel in the [place] Within the Last 8 Weeks: No Recent Travel Out of the Country Within the Last 8 Weeks: No - Immunization History Tetanus Immunization: <5 Years Medications and Allergies Active Medications: Active Medications Acetaminophen (Tylenol) 650 mg PO Q4H PRN PRN Reason: Temp > 100.4 Al Hydroxide/Mg Hydroxide (Milk Of Magnesia Liq) 30 ml PO Q12H PRN PRN Reason: Mild Constipation Bisacodyl (Dulcolax Supp) 10 mg RECTAL DAILY PRN PRN Reason: SEVERE CONSITIPATION Lactulose (Lactulose Liq) 30 ml PO DAILY PRN PRN Reason: SEVERE CONSITIPATION Ondansetron HCl (Zofran Inj) 4 mg IV.PUSH Q6H PRN PRN Reason: NAUSEA OR VOMITING Senna/Docusate Sodium (Filomena-Colace) 1 tab PO BID JOSE Sennosides (Senokot) 17.2 mg PO Q12H PRN PRN Reason: Moderate Constipation Allergies Allergy/AdvReac Type Severity Reaction Status Date / Time No Known Allergies Allergy Verified 08/02/18 03:25 Home Medications Medication Instructions Recorded Confirmed Type gabapentin 800 mg PO TID 07/01/18 08/20/18 History lisinopril 20 mg PO DAILY 07/01/18 08/20/18 History metoprolol tartrate 12.5 mg PO BID 07/01/18 08/20/18 History tizanidine [Zanaflex] 2 mg PO TID PRN 07/01/18 08/20/18 History tramadol 50 mg PO BID 07/01/18 08/20/18 History Exam Vital signs: Vital Signs 08/20/18 09:55 08/20/18 10:05 08/20/18 10:06 Temperature 97.4 F L Pulse Rate 79 90 Respiratory Rate 20 Blood Pressure 146/83 H Pulse Oximetry 99 99 08/20/18 10:43 08/20/18 11:00 Temperature Pulse Rate 79 Respiratory Rate 20 Blood Pressure 141/76 H Pulse Oximetry 99 100 Intake & Output 08/19/18 08/20/18 08/20/18 18:59 06:59 18:59 Weight 68.039 kg Narrative: GENERAL: Pleasant 58 yo male, tall, in bed appears in nad. SKIN: Warm and dry. HEAD: Atraumatic. Normocephalic. EYES: Pupils equal and round. No scleral icterus. No injection or drainage. ENT: No nasal bleeding or discharge. Mucous membranes pink and moist. NECK: Trachea midline. No JVD. CARDIOVASCULAR: Regular rate and rhythm. RESPIRATORY: No accessory muscle use. Clear to auscultation. Breath sounds equal bilaterally. GASTROINTESTINAL: Abdomen soft, non-tender, nondistended. Hepatic and splenic margins not palpable. MUSCULOSKELETAL: Extremities without clubbing, cyanosis, or edema. No obvious deformities. NEUROLOGICAL: Awake and alert. No obvious cranial nerve deficits. Motor grossly within normal limits. Five out of 5 muscle strength in the arms and legs. Normal speech. PSYCHIATRIC: Appropriate mood and affect; insight and judgment normal. Results - Labs CBC & Chem 7: 08/20/18 10:14 08/20/18 10:14 Labs: Laboratory Results - last 24 hr 08/20/18 08/20/18 08/20/18 10:14 10:14 10:14 WBC 7.8 RBC 4.52 Hgb 14.7 Hct 42.5 MCV 94.0 MCH 32.6 MCHC 34.7 RDW 14.0 Plt Count 170 MPV 8.0 Neut % (Auto) 76.4 H Lymph % (Auto) 11.8 [place] % (Auto) 9.0 H Eos % (Auto) 2.3 Baso % (Auto) 0.5 Neut # (Auto) 6.0 Lymph # (Auto) 0.9 L [place] # (Auto) 0.7 Eos # (Auto) 0.2 Baso # (Auto) 0.0 WBC Differential . Differential Comment Auto diff final PT 10.7 INR 1.1 APTT 31.4 H Sodium 142 Potassium 3.9 Chloride 111 H Carbon Dioxide 23.4 Anion Gap 8 BUN 13 Creatinine 0.94 Estimated GFR 82 L Random Glucose 80 Calcium 7.4 L* Prot Corrected Calcium 7.9 L Magnesium 1.7 Total Bilirubin 0.6 AST 14 L ALT 14 Alkaline Phosphatase 91 Total Creatine Kinase 172 CK-MB (CK-2) Less than 1.0 Troponin I Less than 0.02 L B-Natriuretic Peptide Total Protein 6.1 L Albumin 3.0 L Lipase 61 L Urine Opiates Screen Ur Barbiturates Screen Ur Amphetamines Screen U Benzodiazepines Scrn Urine Cocaine Screen U Cannabinoids Screen 08/20/18 08/20/18 10:14 10:59 WBC RBC Hgb Hct MCV MCH MCHC RDW Plt Count MPV Neut % (Auto) Lymph % (Auto) [place] % (Auto) Eos % (Auto) Baso % (Auto) Neut # (Auto) Lymph # (Auto) [place] # (Auto) Eos # (Auto) Baso # (Auto) WBC Differential Differential Comment PT INR APTT Sodium Potassium Chloride Carbon Dioxide Anion Gap BUN Creatinine Estimated GFR Random Glucose Calcium Prot Corrected Calcium Magnesium Total Bilirubin AST ALT Alkaline Phosphatase Total Creatine Kinase CK-MB (CK-2) Troponin I B-Natriuretic Peptide 187 H Total Protein Albumin Lipase Urine Opiates Screen Pos H Ur Barbiturates Screen Neg Ur Amphetamines Screen Neg U Benzodiazepines Scrn Neg Urine Cocaine Screen Neg U Cannabinoids Screen Neg - Imaging Impressions Chest X-Ray 08/20/18 10:10 CONCLUSION: Bilateral discoid atelectasis. Caprini VTE Risk Assessment Caprini VTE Risk Assessment: No/Low Risk (score <= 1) Caprini Risk Assessment Model: Point Value = 1 Point Value = 2 Point Value = 3 Point Value = 5 Age 41-60 Minor surgery BMI > 25 kg/m2 Swollen legs Varicose veins or History of unexplained or recurrent spontaneous Oral contraceptives or hormone replacement Sepsis (< 1 month) Serious lung disease, including pneumonia (< 1 month) Abnormal pulmonary function Acute myocardial infarction Congestive heart failure (< 1 month) History of inflammatory bowel disease Medical patient at bed rest Age 61-74 Arthroscopic surgery Major open surgery (> 45 min) Laparoscopic surgery (> 45 min) Malignancy Confined to bed (> 72 hours) Immobilizing plaster cast Central venous access Age >= 75 History of VTE Family history of VTE Factor V Leiden Prothrombin [id number] Lupus anticoagulant Anticardiolipin antibodies Elevated serum homocysteine Heparin-induced thrombocytopenia Other congenital or acquired thrombophilia Stroke (< 1 month) Elective arthroplasty Hip, pelvis, or leg fracture Acute spinal cord injury (< 1 month) Prophylaxis Regimen: Total Risk Factor Score Risk Level Prophylaxis Regimen 0-1 Low Early ambulation 2 Moderate Order ONE of the following: *Sequential Compression Device (SCD) *Heparin 5000 units SQ BID 3-4 Higher Order ONE of the following medications: *Heparin 5000 units SQ TID *Enoxaparin/Lovenox 40 mg SQ daily (WT < 150 kg, CrCl > 30 mL/min) *Enoxaparin/Lovenox 30 mg SQ daily (WT < 150 kg, CrCl > 10-29 mL/min) *Enoxaparin/Lovenox 30 mg SQ BID (WT < 150 kg, CrCl > 30 mL/min) AND/OR *Sequential Compression Device (SCD) 5 or more Highest Order ONE of the following medications: *Heparin 5000 units SQ TID (Preferred with Epidurals) *Enoxaparin/Lovenox 40 mg SQ daily (WT < 150 kg, CrCl > 30 mL/min) *Enoxaparin/Lovenox 30 mg SQ daily (WT < 150 kg, CrCl > 10-29 mL/min) *Enoxaparin/Lovenox 30 mg SQ BID (WT < 150 kg, CrCl > 30 mL/min) AND *Sequential Compression Device (SCD) Assessment and Plan - Plan Atypical Chest pain Mitral valve abnormality Hypocalcemia Afib rate controlled Neuropathy Chronic back pain CXR reviewed: Bilateral discoid atelectasis. ECG as follows: (Sinus rhythm, rate 79, left axis deviation, normal intervals, T [id number] female who has a history of hypertension and atrial fibrillation First trop neg, will trend Will repeat EKG Will do 2D ECHO BNP not significant elevated Will give morphine IV Prn Replace Ca with Ca gluconate IV and continue to monitor Monitor on salesperson men's hats VS Restart home meds metoprolol, lisinopril Restart gabpentin Restart home meds as appropriate DVT ppc SCD/TEDS
[2018-08-20] MEDS: Gabapentin 400 MG Capsule PO SCH ×2 (13:21→18:30)
[2018-08-20] MEDS: Lisinopril 20 MG Tablet PO SCH (13:21)
[2018-08-20] MEDS: Metoprolol Tartrate 25 MG Tablet PO SCH ×2 (13:22→20:14)
[2018-08-20 14:06] LABS: Creatine Kinase 225 U/L (39-308)
--- NOTE | 2018-08-20 15:01 | ECG ---
Date Performed: 08/20/2018 Time Performed: 09:58:25 PTAGE: 58 years EKG: Sinus rhythm Since the previous tracing, no significant change noted NORMAL ECG PREVIOUS TRACING : 12/06/2015 19.32 DOCTOR: Chuy Duvall Interpretating Date/Time 08/20/2018 14:51:35
[2018-08-20 17:11] LABS: Creatine Kinase 174 U/L (39-308)
--- NOTE | 2018-08-20 18:57 | ECHRPT ---
Indication: CHEST PAIN CONCLUSIONS The left ventricular systolic function is normal with an estimated ejection fraction in the range of 55-60%. Anterior mitral valve leaflet prolapse. Moderate mitral valve regurgitation. BP: / HR: Rhythm: Technical Quality: FINDINGS LEFT VENTRICLE Normal left ventricular size. Wall thickness is normal. The left ventricular systolic function is normal with an estimated ejection fraction in the range of 55-60%. No regional wall motion abnormalities are present. RIGHT VENTRICLE Normal right ventricular size and systolic function. LEFT ATRIUM The left atrial size is mildly dilated. RIGHT ATRIUM The right atrial size is normal. ATRIAL SEPTUM Normal atrial septal thickness without atrial level shunting by limited color doppler interrogation. AORTA The aortic root and proximal ascending aorta are normal in size on limited imaging. MITRAL VALVE Mild thickening of the mitral valve leaflets. Anterior mitral valve leaflet prolapse. Moderate mitral valve regurgitation. The mitral valve regurgitation jet is directed posteriorly. No mitral valve stenosis. AORTIC VALVE Aortic valve sclerosis is present. Trileaflet aortic valve. No aortic valve regurgitation. No aortic valve stenosis. TRICUSPID VALVE Structurally normal tricuspid valve. No tricuspid valve stenosis or regurgitation. PULMONARY VALVE The pulmonary valve is not well visualized. VESSELS The inferior vena cava is normal in size. PERICARDIUM No pericardial effusion. Robb Henderson DO (Electronically Signed) Final Date:20 August 2018 18:56
[2018-08-20 19:10] LABS: Creatine Kinase 174 U/L (39-308)
[2018-08-20] MEDS: Morphine Sulfate Inj 2 MG/ML Vial IV.PUSH PRN (20:14)
[2018-08-20] MEDS: Senna/Docusate Sodium 8.6/50 MG Tablet PO SCH (20:14)
--- NOTE | 2018-08-21 00:31 | MB ---
cc: Robb Henderson DO DATE: 08/20/2018 REASON FOR CONSULTATION: Chest pain, mitral regurgitation. HISTORY OF PRESENT ILLNESS: Jordi Cooley is a pleasant 58-year-old male who presented to [facility] Emergency Room due to what he considers chest pain. He states that it started a couple of hours prior to arrival while he was lying down. Pain is on the left side, sharp and stabbing, below his left side of ribs. It is nonradiating. When he takes a deep breath or coughs, it seems to be worse. Also, pressing on the area also seems to make it worse. He was given a dose of morphine, which seemed to help it. He sees range rider, Dr. Cornejo in [place], and had undergone a cardiac catheterization in 08/2017 which showed normal coronaries. He was found to have mitral valve prolapse with severe mitral regurgitation. He was originally scheduled for surgery and then underwent a repeat echocardiogram which showed moderate mitral regurgitation and says he was told by his range rider that they would wait to fix the valve. PAST MEDICAL HISTORY: 1. Mitral valve prolapse with mitral regurgitation. 2. Hypertension. 3. Depression. 4. Chronic pain. 5. Back pain. 6. Neuropathy. PAST SURGICAL HISTORY: Back surgery. ALLERGIES: NO KNOWN DRUG ALLERGIES. MEDICATIONS: 1. Tramadol 50 mg b.i.d. 2. Zanaflex 2 mg t.i.d. as needed. 3. Metoprolol tartrate 12.5 mg b.i.d. 4. Gabapentin 800 mg t.i.d. 5. Lisinopril 20 mg daily. FAMILY HISTORY: He denies premature coronary artery disease or sudden cardiac within the family. SOCIAL HISTORY: The patient is a former cigarette smoker. He denies alcohol or drug abuse. REVIEW OF SYSTEMS: Fourteen systems were reviewed including osteopathic. Pertinent positives and negatives above, otherwise negative. PHYSICAL EXAMINATION: VITAL SIGNS: Temperature 98.2, heart rate 79, blood pressure 141/76, respirations 20, pulse oximetry 100% on 2 L. GENERAL: The patient appears well, in no acute distress. Alert, awake, and oriented x3. HEENT: Extraocular muscles intact. Mucous membranes moist. NECK: Supple. No JVD at 45 degrees. No carotid bruits heard bilaterally. Carotid upstroke is brisk in nature. HEART: Regular rate and rhythm. Positive first and second heart sounds with a 2/6 holosystolic murmur noted at the apex. LUNGS: Clear to auscultation bilaterally. No wheezes, rales, or rhonchi. ABDOMEN: Soft, mildly tender in the left upper quadrant, but no guarding noted. EXTREMITIES: No clubbing, cyanosis, or edema. Femoral and distal pulses are intact bilaterally. NEUROLOGIC: No focal deficits. SKIN: Warm, dry, and intact. OSTEOPATHIC: No kyphoscoliosis, lordosis, or paraspinal tender points. LABORATORY DATA: Hemoglobin 14.7, hematocrit 42.5, platelets 170. Potassium 3.9, BUN 13, creatinine 0.94. Troponin negative x3. Electrocardiogram (08/20/2018 at 1602): Normal sinus rhythm. No acute ST-T wave changes. IMPRESSION: 1. Noncardiac chest pain. 2. Possible abdominal pain, possibility of a pulled muscle. 3. Normal cardiac catheterization (08/2017). 4. Mitral valve prolapse with moderate mitral regurgitation per the patient. RECOMMENDATIONS: 1. Mr. Cooley appears to have noncardiac chest pain, and we would not recommend further workup at this time. He recently had a cardiac catheterization within the last year which showed normal coronary arteries. 2. He is known to have mitral valve prolapse with moderate mitral regurgitation. Upon discharge, he can followup with his range rider for further recommendations on surveillance of this to make sure that it is not necessary for further surgical intervention. 3. As far as his abdominal pain, morphine has seemed to help him. He has multiple times for doses of morphine to help with the pain. Figuring out if and when surgery will be needed. 4. From a cardiovascular standpoint, no further workup. Thank you for allowing me to see Jordi Cooley. If there are any questions, please do not hesitate to call. DO ARACELY CoxP/rm , 12:07 AM , 12:19 AM
[2018-08-21 06:04] LABS: Baso # (Auto) 0.1 th/mm3 (0.0-0.2); Baso % (Auto) 0.6 % (0.0-2.0); Eos # (Auto) 0.3 th/mm3 (0.0-0.4); Eos % (Auto) 3.3 % (0.0-4.0); Hematocrit 44.7 % (39.0-51.0); Hemoglobin 15.5 gm/dL (13.0-17.0); Lymph # (Auto) 1.3 th/mm3 (1.0-4.8); Mean Corpuscular HGB Conc 34.7 % (32.0-36.0); Mean Corpuscular Hemoglobin 32.4 pg (27.0-34.0); Mean Corpuscular Volume 93.2 fL (80.0-100.0); Mean Platelet Volume 8.1 fL (7.0-11.0); Mono # (Auto) 0.9 th/mm3 (0.0-0.9); Mono % (Auto) 10.9 % (0.0-8.0); Neut # (Auto) 6.1 th/mm3 (1.8-7.7); Neut % (Auto) 70.2 % (16.0-70.0); Platelet Count 167 th/mm3 (150-450); Red Blood Count 4.79 mil/mm3 (4.50-5.90); Red Cell Distribution Width 13.4 % (11.6-17.2); White Blood Count 8.7 th/mm3 (4.0-11.0)
[2018-08-21 06:35] LABS: Alanine Aminotransferase 18 U/L (12-78); Albumin 3.8 g/dL (3.4-5.0); Anion Gap 9 meq/L (5-15); Aspartate Aminotransferase 14 U/L (15-37); Blood Urea Nitrogen 16 mg/dL (7-18); Chloride 107 meq/L (98-107); Glomerular Filtration Rate 72 mL/min (>89); Glucose,Random 88 mg/dL (74-106); Sodium 141 meq/L (136-145)
[2018-08-21 06:36] LABS: Alkaline Phosphatase 106 U/L (45-117); Total Protein 7.4 g/dL (6.4-8.2)
--- NOTE | 2018-08-21 08:39 | P.PN ---
Subjective Interval history: in nad. Patient is satting well on room air. He is able to ambulate. No chest pain or sob Patient complained of back pain chronic. No fever or chills. No n/v/d/c. Physical Exam Vital signs: Vital Signs 08/20/18 09:55 08/20/18 10:05 08/20/18 10:06 Temperature 97.4 F L Pulse Rate 79 90 Respiratory Rate 20 Blood Pressure 146/83 H Pulse Oximetry 99 99 08/20/18 10:43 08/20/18 11:00 08/20/18 13:22 Temperature Pulse Rate 79 74 Respiratory Rate 20 20 Blood Pressure 141/76 H 161/92 H Pulse Oximetry 99 100 100 08/20/18 16:00 08/20/18 18:32 08/20/18 20:00 Temperature 98.2 F 98.7 F Pulse Rate 68 73 Respiratory Rate 16 18 Blood Pressure 129/87 127/88 Pulse Oximetry 97 97 96 08/20/18 20:20 08/20/18 22:31 08/21/18 00:00 Temperature 98.3 F Pulse Rate 68 74 Respiratory Rate 16 18 Blood Pressure 103/62 Pulse Oximetry 95 08/21/18 03:57 08/21/18 07:30 08/21/18 08:21 Temperature 98.0 F 98.3 F Pulse Rate 82 77 Respiratory Rate 18 20 Blood Pressure 117/74 132/85 Pulse Oximetry 95 97 96 Intake & Output 08/20/18 08/21/18 08/21/18 18:59 06:59 18:59 Intake Total 240 / 240 Balance 240 / 240 Weight 68.039 kg Intake: Oral 240 / 240 Other: # Voids 3 3 Date of Last Bowel Movement 08/18/18 Narrative: GENERAL: Pleasant 58 yo male, in bed, appears in nad. CARDIOVASCULAR: Regular rate and rhythm. RESPIRATORY: No accessory muscle use. Clear to auscultation. Breath sounds equal bilaterally. GASTROINTESTINAL: Abdomen soft, non-tender, nondistended. Hepatic and splenic margins not palpable. MUSCULOSKELETAL: Extremities without clubbing, cyanosis, or edema. No obvious deformities. NEUROLOGICAL: Awake and alert. No obvious cranial nerve deficits. Motor grossly within normal limits. Five out of 5 muscle strength in the arms and legs. Normal speech. PSYCHIATRIC: Appropriate mood and affect; insight and judgment normal. Results - Labs CBC & Chem 7: 08/21/18 04:41 08/21/18 04:41 Laboratory Results - last 24 hr 08/20/18 08/20/18 08/20/18 10:14 10:14 10:14 WBC 7.8 RBC 4.52 Hgb 14.7 Hct 42.5 MCV 94.0 MCH 32.6 MCHC 34.7 RDW 14.0 Plt Count 170 MPV 8.0 Neut % (Auto) 76.4 H Lymph % (Auto) 11.8 [place] % (Auto) 9.0 H Eos % (Auto) 2.3 Baso % (Auto) 0.5 Neut # (Auto) 6.0 Lymph # (Auto) 0.9 L [place] # (Auto) 0.7 Eos # (Auto) 0.2 Baso # (Auto) 0.0 WBC Differential . Differential Comment Auto diff final PT 10.7 INR 1.1 APTT 31.4 H Sodium 142 Potassium 3.9 Chloride 111 H Carbon Dioxide 23.4 Anion Gap 8 BUN 13 Creatinine 0.94 Estimated GFR 82 L Random Glucose 80 Calcium 7.4 L* Prot Corrected Calcium 7.9 L Magnesium 1.7 Total Bilirubin 0.6 AST 14 L ALT 14 Alkaline Phosphatase 91 Total Creatine Kinase 172 CK-MB (CK-2) Less than 1.0 Troponin I Less than 0.02 L B-Natriuretic Peptide Total Protein 6.1 L Albumin 3.0 L Lipase 61 L Urine Color Urine Clarity Urine pH Ur Specific [place] Urine Protein Urine Glucose (UA) Urine Ketones Urine Occult Blood Urine Nitrate Urine Bilirubin Urine Urobilinogen Ur Leukocyte Esterase Urine RBC Urine WBC Urine Mucus Micro UA Comment Ur Microscopic Review Urine Culture Comments Urine Opiates Screen Ur Barbiturates Screen Ur Amphetamines Screen U Benzodiazepines Scrn Urine Cocaine Screen U Cannabinoids Screen 08/20/18 08/20/18 08/20/18 10:14 10:59 10:59 WBC RBC Hgb Hct MCV MCH MCHC RDW Plt Count MPV Neut % (Auto) Lymph % (Auto) [place] % (Auto) Eos % (Auto) Baso % (Auto) Neut # (Auto) Lymph # (Auto) [place] # (Auto) Eos # (Auto) Baso # (Auto) WBC Differential Differential Comment PT INR APTT Sodium Potassium Chloride Carbon Dioxide Anion Gap BUN Creatinine Estimated GFR Random Glucose Calcium Prot Corrected Calcium Magnesium Total Bilirubin AST ALT Alkaline Phosphatase Total Creatine Kinase CK-MB (CK-2) Troponin I B-Natriuretic Peptide 187 H Total Protein Albumin Lipase Urine Color Yellow Urine Clarity Clear Urine pH 6.0 Ur Specific [place] 1.021 Urine Protein Negative Urine Glucose (UA) Negative Urine Ketones 20 Urine Occult Blood Moderate H Urine Nitrate Negative Urine Bilirubin Negative Urine Urobilinogen 4 or greater Ur Leukocyte Esterase Negative Urine RBC 25 H Urine WBC 2 Urine Mucus Few H Micro UA Comment Culture not ind Ur Microscopic Review Not Reportable Urine Culture Comments Culture not ind Urine Opiates Screen Pos H Ur Barbiturates Screen Neg Ur Amphetamines Screen Neg U Benzodiazepines Scrn Neg Urine Cocaine Screen Neg U Cannabinoids Screen Neg 08/20/18 08/20/18 08/20/18 13:25 16:20 18:22 WBC RBC Hgb Hct MCV MCH MCHC RDW Plt Count MPV Neut % (Auto) Lymph % (Auto) [place] % (Auto) Eos % (Auto) Baso % (Auto) Neut # (Auto) Lymph # (Auto) [place] # (Auto) Eos # (Auto) Baso # (Auto) WBC Differential Differential Comment PT INR APTT Sodium Potassium Chloride Carbon Dioxide Anion Gap BUN Creatinine Estimated GFR Random Glucose Calcium Prot Corrected Calcium Magnesium Total Bilirubin AST ALT Alkaline Phosphatase Total Creatine Kinase 225 174 174 CK-MB (CK-2) Less than 1.0 Troponin I Less than 0.02 L Less than 0.02 L Less than 0.02 L B-Natriuretic Peptide Total Protein Albumin Lipase Urine Color Urine Clarity Urine pH Ur Specific [place] Urine Protein Urine Glucose (UA) Urine Ketones Urine Occult Blood Urine Nitrate Urine Bilirubin Urine Urobilinogen Ur Leukocyte Esterase Urine RBC Urine WBC Urine Mucus Micro UA Comment Ur Microscopic Review Urine Culture Comments Urine Opiates Screen Ur Barbiturates Screen Ur Amphetamines Screen U Benzodiazepines Scrn Urine Cocaine Screen U Cannabinoids Screen 08/21/18 08/21/18 04:41 04:41 WBC 8.7 RBC 4.79 Hgb 15.5 Hct 44.7 MCV 93.2 MCH 32.4 MCHC 34.7 RDW 13.4 Plt Count 167 MPV 8.1 Neut % (Auto) 70.2 H Lymph % (Auto) 15.0 [place] % (Auto) 10.9 H Eos % (Auto) 3.3 Baso % (Auto) 0.6 Neut # (Auto) 6.1 Lymph # (Auto) 1.3 [place] # (Auto) 0.9 Eos # (Auto) 0.3 Baso # (Auto) 0.1 WBC Differential . Differential Comment Auto diff final PT INR APTT Sodium 141 Potassium 4.0 Chloride 107 Carbon Dioxide 25.0 Anion Gap 9 BUN 16 Creatinine 1.06 Estimated GFR 72 L Random Glucose 88 Calcium 9.0 D Prot Corrected Calcium Magnesium Total Bilirubin 0.6 AST 14 L ALT 18 Alkaline Phosphatase 106 Total Creatine Kinase CK-MB (CK-2) Troponin I B-Natriuretic Peptide Total Protein 7.4 D Albumin 3.8 D Lipase Urine Color Urine Clarity Urine pH Ur Specific [place] Urine Protein Urine Glucose (UA) Urine Ketones Urine Occult Blood Urine Nitrate Urine Bilirubin Urine Urobilinogen Ur Leukocyte Esterase Urine RBC Urine WBC Urine Mucus Micro UA Comment Ur Microscopic Review Urine Culture Comments Urine Opiates Screen Ur Barbiturates Screen Ur Amphetamines Screen U Benzodiazepines Scrn Urine Cocaine Screen U Cannabinoids Screen - Imaging Impressions Chest X-Ray 08/20/18 10:10 CONCLUSION: Bilateral discoid atelectasis. Assessment and Plan - Plan Atypical Chest pain Mitral valve regugitation moderate. MVP Hypocalcemia, replaced and resolved Afib rate controlled Neuropathy Chronic back pain CXR reviewed: Bilateral discoid atelectasis. ECG reviewed Sinus rhythm, rate 79, left axis deviation, normal intervals, T wave Trops negative Will repeat EKG 2D ECHO reviewed normal EF and moderate MR BNP not significant elevated Replaced Ca with Ca gluconate IV and back to normal Monitor on sustainability coach VS Restart home meds metoprolol, lisinopril, gabapentin Discharge plan: Patient improved, echo reviewed. DC home in stable condition to follow up as OP with PCP and consultants. Diet healthy heart diet as kristan Activity ad alejandra as tolerated Meds per med reconciliations
[2018-08-21] MEDS: Metoprolol Tartrate 25 MG Tablet PO SCH (09:07)
[2018-08-21] MEDS: Gabapentin 400 MG Capsule PO SCH (09:07)
[2018-08-21] MEDS: Lisinopril 20 MG Tablet PO SCH (09:08)
[2018-08-21] MEDS: Senna/Docusate Sodium 8.6/50 MG Tablet PO SCH (09:08)
[2018-08-21] MEDS: Morphine Sulfate Inj 2 MG/ML Vial IV.PUSH PRN (10:46)
--- NOTE | 2018-08-21 13:35 | ECG ---
Date Performed: 08/20/2018 Time Performed: 19:40:19 PTAGE: 58 years EKG: Sinus rhythm NORMAL ECG PREVIOUS TRACING : 08/20/2018 16.02 DOCTOR: Alok Barboza Interpretating Date/Time 08/21/2018 13:32:33
--- NOTE | 2018-08-21 14:58 | ECG ---
Date Performed: 08/20/2018 Time Performed: 16:02:42 PTAGE: 58 years EKG: Sinus rhythm MARKED LEFT AXIS DEVIATION POSSIBLE RIGHT VENTRICULAR CONDUCTION DELAY ABNORMAL ECG PREVIOUS TRACING : 08/20/2018 09.58 DOCTOR: Alok Barboza Interpretating Date/Time 08/21/2018 14:56:14
== END 2018-08-21 12:04 | disposition home or self-care (01) ==
LOC: NEPC 09:53 → NEDA 09:53 → NEPFCDU 14:04
PROVIDERS: ADMIT Hospitalist; ATTEND Hospitalist

== ENCOUNTER 2018-09-27 05:45 | Observation (INO) ==
[2018-09-27] MEDS ORDERED: Sod Chloride 0.9% Inj 1,000 ML IV.SIG ONE ×2 (06:04→06:25)
--- NOTE | 2018-09-27 06:10 | ED ---
HPI General Chief complaint: Nausea/Vomiting/Diarrhea Stated complaint: vomiting x 1 1/2 days Time Seen by Provider: 09/27/18 05:49 Source: patient Mode of arrival: ambulatory Limitations: no limitations History of Present Illness HPI Narrative: Patient is a 58-year-old male coming in saying Z a day and a half of nausea and vomiting. And left lower quadrant tenderness. He has a distant history of a small bowel obstruction that was managed conservatively and resolved on its own. He also has a history of having diverticulitis ... With possible perforation or abscess. Patient is thin. Patient is in the ER pain complaint. Afebrile no active vomiting has not taken anything for the pain but he says the pain is severe 8 out of 10 does not radiate is localized to the left lower quadrant he has not seen another doctor for this it is similar the pain to the last diverticulitis episode he had 2 months ago Related Data Home Medications Medication Instructions Recorded Confirmed gabapentin 800 mg PO TID 07/01/18 09/27/18 lisinopril 20 mg PO DAILY 07/01/18 09/27/18 metoprolol tartrate 12.5 mg PO BID 07/01/18 09/27/18 tizanidine [Zanaflex] 2 mg PO TID PRN 07/01/18 09/27/18 tramadol 50 mg PO BID 07/01/18 09/27/18 bupropion HCl [Wellbutrin SR] 1 tab PO BID 08/29/18 09/27/18 Allergies Allergy/AdvReac Type Severity Reaction Status Date / Time No Known Allergies Allergy Verified 08/29/18 11:41 Review of Systems ROS: all other systems reviewed are negative [facility] Social History Social History Substance History: No History of Abuse Second Hand Smoke Exposure: No Smoking Status: Never smoker Tobacco Type: Cigarettes How Often Do You Have a Drink Containing Alcohol: Never Recent Travel in [facility] within the Last 8 Weeks: No Recent Out of Country Travel within the Last 8 Weeks: No Immunization History Tetanus Immunization: >5 Years Exam Narrative Exam Narrative: GENERAL: Patient is awake alert nontoxic appearing somewhat thin affect is slightly flat SKIN: Warm and dry. HEAD: Atraumatic. Normocephalic. EYES: Pupils equal and round. No scleral icterus. No injection or drainage. ENT: No nasal bleeding or discharge. Mucous membranes pink and moist. NECK: Trachea midline. No JVD. CARDIOVASCULAR: Regular rate and rhythm. RESPIRATORY: No accessory muscle use. Clear to auscultation. Breath sounds equal bilaterally. GASTROINTESTINAL: Abdomen tenderness to the suprapubic left lower quadrant area with percussion. MUSCULOSKELETAL: Extremities without clubbing, cyanosis, or edema. No obvious deformities. NEUROLOGICAL: Awake and alert. No obvious cranial nerve deficits. Motor grossly within normal limits. Five out of 5 muscle strength in the arms and legs. Normal speech. PSYCHIATRIC: Affect is flat and somewhat guarded Course Initial Documented Vital Signs Temperature 97.5 F L 09/27/18 05:55 Pulse Rate 102 H 09/27/18 05:55 Respiratory Rate 16 09/27/18 05:55 Blood Pressure 154/100 H 09/27/18 05:55 Pulse Oximetry 98 09/27/18 05:55 Last Documented Vital Signs Temperature 97.5 F L 09/27/18 05:55 Pulse Rate 84 09/27/18 07:18 Respiratory Rate 18 09/27/18 07:32 Blood Pressure 138/85 09/27/18 07:18 Pulse Oximetry 100 09/27/18 07:18 Sign Out Sign Out Data: Patient Sign Out occurred on 09/27/18 at 07:10. Patient's care was discussed, and care was transferred from Ash Wren to Mohsen Esteban DO. Sign Out Comment: pt has severe lower abdo pain and hx of diverticultis CT pending labs pending and toradol and protonix given Last updated by Ash Wren at 09/27/18 07:01 Medical Decision Making MDM Narrative Medical decision making narrative: Labs are sent IV fluid Pepcid Toradol CT abdo to rule out diverticulitis 0800: Patient was endorsed to me, CAT scan done no significant pathology found. Patient has mild white count elevation 11.7, mild dehydration with renal insufficiency 1.7 is creatinine(one month ago was 1.2), mild lactic acid elevated 2.2 [facility] called for observation placement. Patient keeps asking pain medications. Case was accepted for observation. Medical Screen Exam Complete: Yes Emergency Medical Condition: Yes Differential Diagnosis Differential Diagnosis: Diagnosis includes diverticulitis versus colitis versus suprapubic pain kidney stone diarrhea constipation gas 2 enteritis ulcerative colitis Crohn's other Lab Data Result diagrams: 09/27/18 06:15 09/27/18 06:15 Lab Results 09/27/18 09/27/18 09/27/18 Range/Units 06:15 06:15 06:15 CBC w Diff Auto diff final WBC 11.7 H (4.0-11.0) th/mm3 RBC 5.41 (4.50-5.90) mil/mm3 Hgb 17.3 H (13.0-17.0) gm/dL Hct 50.6 (39.0-51.0) % MCV 93.6 (80.0-100.0) fL MCH 32.0 (27.0-34.0) pg MCHC 34.2 (32.0-36.0) % RDW 13.8 (11.6-17.2) % Plt Count 240 (150-450) th/mm3 MPV 8.7 (7.0-11.0) fL Neut % (Auto) 82.1 H (16.0-70.0) % Lymph % (Auto) 8.9 L (9.0-44.0) % [place] % (Auto) 6.2 (0.0-8.0) % Eos % (Auto) 0.4 (0.0-4.0) % Baso % (Auto) 2.4 H (0.0-2.0) % Neut # (Auto) 9.7 H (1.8-7.7) th/mm3 Lymph # (Auto) 1.0 (1.0-4.8) th/mm3 [place] # (Auto) 0.7 (0.0-0.9) th/mm3 Eos # (Auto) 0.0 (0.0-0.4) th/mm3 Baso # (Auto) 0.3 H (0.0-0.2) th/mm3 WBC Differential . Differential Comment . Sodium 136 (136-145) meq/L Potassium 5.4 H (3.5-5.1) meq/L Chloride 103 (98-107) meq/L Carbon Dioxide 23.8 (21.0-32.0) meq/L Anion Gap 9 (5-15) meq/L BUN 23 H (7-18) mg/dL Creatinine 1.70 H (0.60-1.30) mg/dL Estimated GFR 42 L (>89) mL/min Random Glucose 131 H (74-106) mg/dL Lactic Acid 2.2 H (0.4-2.0) mmol/L Calcium 9.2 (8.5-10.1) mg/dL Magnesium 2.1 (1.5-2.5) mg/dL Total Bilirubin 0.7 (0.2-1.0) mg/dL AST 18 (15-37) U/L ALT 21 (12-78) U/L Alkaline Phosphatase 122 H (45-117) U/L Total Protein 8.5 H (6.4-8.2) g/dL Albumin 4.3 (3.4-5.0) g/dL Lipase 206 (73-393) U/L Imaging Data Radiologist's impression: Abdomen/Pelvis CT 09/27/18 06:58 CONCLUSION: 1. No acute abnormality is identified to explain the clinical symptoms. 2. 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 Discharge Plan Discharge Disposition Patient Disposition: ED Admit(ED Internal Use Only) Discharge Condition Condition: Fair Discharge Order Discharge Orders: ED Use Only Admit Order (Routine); Ordered 09/27/18 Ordered By: Mohsen Esteban Physicians Team ED Provider: Mohsen Esteban Rxs /Orders / Referrals /Forms Prescriptions: No Action lisinopril 20 mg Tablet 20 mg PO DAILY RF: 0 tramadol 50 mg Tablet 50 mg PO BID RF: 0 gabapentin 800 mg Tablet 800 mg PO TID RF: 0 metoprolol tartrate 25 mg Tablet 12.5 mg PO BID RF: 0 tizanidine [Zanaflex] 2 mg Capsule 2 mg PO TID PRN (Reason: Pain) RF: 0 bupropion HCl [Wellbutrin SR] 150 mg Tablet Sustained-Release 12 Hr 1 tab PO BID RF: 0 Discharge Interventions Interventions: Vital Signs Last Done: 09/27/18 07:18 Status ED Status: Admitted Patient
[2018-09-27] MEDS ORDERED: Pantoprazole Inj 40 MG Vial IV.PUSH ONE (06:25)
[2018-09-27] MEDS ORDERED: Ketorolac Inj 30 MG/ML (IVP) Vial IV.PUSH ONE (06:25)
[2018-09-27 06:36] LABS: Baso # (Auto) 0.3 th/mm3 (0.0-0.2); Baso % (Auto) 2.4 % (0.0-2.0); Chloride 103 meq/L (98-107); Eos % (Auto) 0.4 % (0.0-4.0); Hematocrit 50.6 % (39.0-51.0); Hemoglobin 17.3 gm/dL (13.0-17.0); Lymph % (Auto) 8.9 % (9.0-44.0); Mean Corpuscular HGB Conc 34.2 % (32.0-36.0); Mean Corpuscular Volume 93.6 fL (80.0-100.0); Mean Platelet Volume 8.7 fL (7.0-11.0); Mono # (Auto) 0.7 th/mm3 (0.0-0.9); Mono % (Auto) 6.2 % (0.0-8.0); Neut # (Auto) 9.7 th/mm3 (1.8-7.7); Neut % (Auto) 82.1 % (16.0-70.0); Platelet Count 240 th/mm3 (150-450); Potassium 5.4 meq/L (3.5-5.1); Red Blood Count 5.41 mil/mm3 (4.50-5.90); Red Cell Distribution Width 13.8 % (11.6-17.2); Sodium 136 meq/L (136-145); White Blood Count 11.7 th/mm3 (4.0-11.0)
[2018-09-27 06:39] LABS: Calcium 9.2 mg/dL (8.5-10.1)
[2018-09-27 06:40] LABS: Albumin 4.3 g/dL (3.4-5.0); Anion Gap 9 meq/L (5-15); Blood Urea Nitrogen 23 mg/dL (7-18); Carbon Dioxide 23.8 meq/L (21.0-32.0); Glucose,Random 131 mg/dL (74-106); Lipase 206 U/L (73-393); Magnesium 2.1 mg/dL (1.5-2.5)
[2018-09-27 06:42] LABS: Alanine Aminotransferase 21 U/L (12-78); Aspartate Aminotransferase 18 U/L (15-37)
[2018-09-27 06:43] LABS: Glomerular Filtration Rate 42 mL/min (>89)
[2018-09-27 06:44] LABS: Total Protein 8.5 g/dL (6.4-8.2)
[2018-09-27 06:45] LABS: Alkaline Phosphatase 122 U/L (45-117)
[2018-09-27] MEDS ORDERED: Morphine Inj 4 MG/ML Vial IV.PUSH ONE (07:06)
--- NOTE | 2018-09-27 07:44 | CT ---
EXAM DATE: 09/27/2018 7:33 AM EST AGE/SEX: 58 years / Male INDICATIONS: Left lower quadrant pain. Nausea and vomiting. CLINICAL DATA: This is the patient's initial encounter. Patient reports that signs and symptoms have been present for 2 days and indicates a pain score of 8/10. MEDICAL/SURGICAL HISTORY: Diverticulitis. Hypertension. Small bowel obstruction. . Back surg jordan. ORAL CONTRAST: No oral contrast ingested. RADIATION DOSE: 5.83 CTDI (mGy) COMPARISON: [facility], CT ABDOMEN & PELVIS W CONTRAST, 08/29/2018. [facility], CT ABDOMEN & PELVIS W CONTRAST , 08/02/2018. . TECHNIQUE: Multiple contiguous axial images were obtained through the abdomen and pelvis following b olus infusion of 90 ml Omnipaque 350 (iohexol) nonionic water-soluble contrast as a single exam dos e. No oral contrast ingested. Using automated exposure control and adjustment of the mA and/or kV ac cording to patient size, radiation dose was kept as low as reasonably achievable to obtain optimal di agnostic quality images. DICOM format image data is available electronically for review and comparis on. FINDINGS: Lower chest: No acute abnormality is identified. Hepatobiliary: No focal liver lesion is identified. Hepatic vasculature demonstrates no abnormality. No calcified gallstones are present. Kidneys: No hydronephrosis, stone, or mass. There is a stable incidental 5 mm low-density lesion in t he lower pole the right kidney that is too small to characterize. Adrenal Glands: Within normal limits. Spleen: Within normal limits. Pancreas: Within normal limits. Vascular: The aorta is nonaneurysmal. There is mild atherosclerotic disease. Left common femoral davide ry aneurysm is present just proximal to the bifurcation measuring approximately 12 mm. Bowel/Mesentery: The stomach and small bowel demonstrate no abnormality. No acute colon abnormality i s seen. There is no free intraperitoneal air or fluid. There is mild sigmoid diverticulosis. Abdominal Wall: No hernia is visualized. Retroperitoneum: No lymphadenopathy. Bladder: No wall thickening or mass. Reproductive: Within normal limits. Inguinal: No lymphadenopathy or hernia. Musculoskeletal: No acute osseous abnormality is identified. There are mild degenerative changes with in the lumbar spine. CONCLUSION: 1. No acute abnormality is identified to explain the clinical symptoms. 2. 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 Electronically signed by: Morro Blackwell MD 09/27/2018 7:43 AM EST
[2018-09-27] MEDS: Sod Chloride 0.9% Inj 1,000 ML IV.CONT SCH ×2 (08:10→17:10)
[2018-09-27] MEDS ORDERED: Bisacodyl 10 MG Supp RECTAL PRN (08:22)
[2018-09-27] MEDS ORDERED: Acetaminophen 325 MG Tablet PO PRN (08:22)
[2018-09-27] MEDS ORDERED: Naloxone Inj 0.4 MG/ML Vial IV.PUSH PRN (08:22)
[2018-09-27] MEDS ORDERED: Morphine Sulfate Inj 2 MG/ML Vial IV.PUSH PRN (08:22)
[2018-09-27 08:46] LABS: Bilirubin,Urine Negative (Negative); Clarity,Urine Clear (Clear); Color,Urine Yellow (Yellw/Straw); Glucose,Urine (UA) Negative (Negative); Leukocyte Esterase,Urine Negative (Negative); Nitrite,Urine Negative (Negative); PH,Urine 6.5 (5.0-8.5); Specific Gravity,Urine 1.015 (1.002-1.035); Urobilinogen,Urine 0.2 mg/dL (Less than 2)
[2018-09-27 08:53] LABS: Squamous Epithelial Cell,Urine 0-5 /hpf (0-5)
[2018-09-27 08:54] LABS: Hyaline Casts,Urine 0-3 /lpf (0-3)
[2018-09-27] MEDS: Enoxaparin Inj 30 MG/0.3 ML Syringe SQ SCH (09:05)
[2018-09-27] MEDS: Senna/Docusate Sodium 8.6/50 MG Tablet PO SCH ×2 (09:05→20:04)
[2018-09-27] MEDS: Gabapentin 400 MG Capsule PO SCH ×2 (12:36→17:10)
[2018-09-27] MEDS: Morphine Sulfate Inj 2 MG/ML Vial IV.PUSH PRN ×3 (14:12→21:28)
--- NOTE | 2018-09-27 17:19 | P.HPIM ---
History of Present Illness Primary Care Physician: Laila Bautista Chief Complaint: Nausea vomiting abdominal pain History of Present Illness: 58-year-old gentleman with history of IV drug abuse and endocarditis 3 years ago presents with intractable nausea vomiting and diarrhea that alternated with severe constipation. Patient states symptoms started yesterday, not associated with any fever, he has had chills. He had mid lower abdominal pain without significant radiation, pain worsened after he had significant dry heaves and vomiting. He denies shortness of breath productive cough coughing up blood or bloody stools or melena history. He denies recent travel or sick contacts he denies recent drug use. 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, GERD, degenerative disc disease, hypertension, diverticulitis PSXhx: Laminectomy SOChx: Denies tobacco states he quit months ago, denies alcohol, denies IV drug abuse, states he is currently on disability due to his heart valve disease FAMhx: Dad had an [place], sister is diabetic Review of Systems Review of Systems: all other systems reviewed are negative [facility] Social History Social History Substance History: No History of Abuse Second Hand Smoke Exposure: No Smoking Status: Former smoker Tobacco Type: Cigarettes How Often Do You Have a Drink Containing Alcohol: Never Recent Travel in [place] within the Last 8 Weeks: No Recent Out of Country Travel within the Last 8 Weeks: No Immunization History Tetanus Immunization: Unsure Hx Influenza Vaccine This Season: Yes Medications and Allergies Allergies Allergy/AdvReac Type Severity Reaction Status Date / Time No Known Allergies Allergy Verified 08/29/18 11:41 Home Medications Medication Instructions Recorded Confirmed Type gabapentin 800 mg PO TID 07/01/18 09/27/18 History lisinopril 20 mg PO DAILY 07/01/18 09/27/18 History metoprolol tartrate 12.5 mg PO BID 07/01/18 09/27/18 History tizanidine [Zanaflex] 2 mg PO TID PRN 07/01/18 09/27/18 History tramadol 50 mg PO BID 07/01/18 09/27/18 History bupropion HCl [Wellbutrin SR] 1 tab PO BID 08/29/18 09/27/18 History Active Medications: Active Medications Acetaminophen (Tylenol) 650 mg PO Q4H PRN PRN Reason: Temp > 100.4 Al Hydroxide/Mg Hydroxide (Milk Of Magnesia Liq) 30 ml PO Q12H PRN PRN Reason: Mild Constipation Bisacodyl (Dulcolax Supp) 10 mg RECTAL DAILY PRN PRN Reason: SEVERE CONSITIPATION Bupropion HCl (Wellbutrin Sr) 150 mg PO BID [facility] Enoxaparin Sodium (Lovenox Inj) 30 mg SQ Q24H [facility] Last Admin: 09/27/18 09:05 Dose: 30 mg Gabapentin (Neurontin) 400 mg PO TID [facility] Last Admin: 09/27/18 17:10 Dose: 400 mg Sodium Chloride (Ns Inj) 1,000 mls @ 125 mls/hr IV.CONT .Q8H [facility] Last Admin: 09/27/18 17:10 Dose: 125 mls/hr Lactulose (Lactulose Liq) 30 ml PO DAILY PRN PRN Reason: SEVERE CONSITIPATION Lisinopril (Prinivil) 20 mg PO DAILY [facility] Metoprolol Tartrate (Lopressor) 12.5 mg PO BID [facility] Morphine Sulfate (Morphine Inj) 1 mg IV.PUSH Q3H PRN PRN Reason: PAIN SCALE 7 TO 10 SEVERE Last Admin: 09/27/18 17:10 Dose: 1 mg Naloxone HCl (Narcan Inj) 0.4 mg IV.PUSH UNSCH PRN PRN Reason: SEE LABEL COMMENTS Ondansetron HCl (Zofran Inj) 4 mg IV.PUSH Q6H PRN PRN Reason: NAUSEA OR VOMITING Senna/Docusate Sodium (Filomena-Colace) 1 tab PO BID [facility] Last Admin: 09/27/18 09:05 Dose: 1 tab Sennosides (Senokot) 17.2 mg PO Q12H PRN PRN Reason: Moderate Constipation Sodium Chloride (Ns Flush) 2 ml IV.FLUSH PRN PRN PRN Reason: FLUSH AFTER USING IV ACCESS Sodium Chloride (Ns Flush) 2 ml IV.FLUSH BID [facility] Last Admin: 09/27/18 09:07 Dose: Not Given Tizanidine HCl (Zanaflex) 4 mg PO TID PRN PRN Reason: SPASM/PAIN 1-10 Last Admin: 09/27/18 13:32 Dose: 4 mg Tramadol HCl (Ultram) 50 mg PO BID [facility] Physical Exam Vital signs: Last Vital Signs Temp 98.5 F 09/27/18 16:00 Pulse 78 09/27/18 16:00 Resp 16 09/27/18 16:00 BP 138/77 09/27/18 16:00 Pulse Ox 100 09/27/18 16:00 Intake & Output 09/25/18 09/26/18 09/27/18 09/28/18 06:59 06:59 06:59 06:59 Intake Total 3000 / 3000 Output Total 150 / 150 Balance 2850 / 2850 Weight 65.4 kg Narrative: GEN thin well-developed well-nourished ill-appearing 58-year-old white gentleman awake alert oriented to person time and place, pleasant in minimal distress due to abdominal pain HEENT normocephalic atraumatic, Pupils equal reactive, sclerae anicteric, extraocular motion intact, mucosa is dry,. posterior pharynx without exudate, poor dentition, no gum lip lesions noted NECK supple no JVD trachea midline thyroid smooth not enlarged ANT CHEST WALL without mass or tenderness to palpation HEART S1-S2 regular without murmur gallops or clicks LUNGS clear to auscultation without wheeze rales or rhonchi , full symmetric expansion BACK exam is no CVA tenderness or mass ABDOMEN soft flat, nondistended positive bowel sounds no guarding rebound rigidity, tenderness mid lower abdomen and pelvis, suprapubic tenderness, LYMPH NODES no cervical, axillary or inguinal adenopathy noted EXTREMITIES no clubbing cyanosis or significant edema, peripheral pulses palpable +2 NEUROLOGIC cranial nerves II through XII appear grossly intact, strength is 5 out of 5 symmetrical no clonus or rigidity SKIN warm and dry with good turgor, no other rash or sores noted Results Labs CBC & Chem 7: 09/27/18 06:15 09/27/18 06:15 Imaging Impressions Abdomen/Pelvis CT 09/27/18 06:58 CONCLUSION: 1. No acute abnormality is identified to explain the clinical symptoms. 2. 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 Caprini VTE Risk Assessment Caprini VTE Risk Assessment: Moderate/High Risk (score >= 2) Caprini Risk Assessment Model: Point Value = 1 Point Value = 2 Point Value = 3 Point Value = 5 Age 41-60 Minor surgery BMI > 25 kg/m2 Swollen legs Varicose veins or History of unexplained or recurrent spontaneous Oral contraceptives or hormone replacement Sepsis (< 1 month) Serious lung disease, including pneumonia (< 1 month) Abnormal pulmonary function Acute myocardial infarction Congestive heart failure (< 1 month) History of inflammatory bowel disease Medical patient at bed rest Age 61-74 Arthroscopic surgery Major open surgery (> 45 min) Laparoscopic surgery (> 45 min) Malignancy Confined to bed (> 72 hours) Immobilizing plaster cast Central venous access Age >= 75 History of VTE Family history of VTE Factor V Leiden Prothrombin [id number] Lupus anticoagulant Anticardiolipin antibodies Elevated serum homocysteine Heparin-induced thrombocytopenia Other congenital or acquired thrombophilia Stroke (< 1 month) Elective arthroplasty Hip, pelvis, or leg fracture Acute spinal cord injury (< 1 month) Prophylaxis Regimen: Total Risk Factor Score Risk Level Prophylaxis Regimen 0-1 Low Early ambulation 2 Moderate Order ONE of the following: *Sequential Compression Device (SCD) *Heparin 5000 units SQ BID 3-4 Higher Order ONE of the following medications: *Heparin 5000 units SQ TID *Enoxaparin/Lovenox 40 mg SQ daily (WT < 150 kg, CrCl > 30 mL/min) *Enoxaparin/Lovenox 30 mg SQ daily (WT < 150 kg, CrCl > 10-29 mL/min) *Enoxaparin/Lovenox 30 mg SQ BID (WT < 150 kg, CrCl > 30 mL/min) AND/OR *Sequential Compression Device (SCD) 5 or more Highest Order ONE of the following medications: *Heparin 5000 units SQ TID (Preferred with Epidurals) *Enoxaparin/Lovenox 40 mg SQ daily (WT < 150 kg, CrCl > 30 mL/min) *Enoxaparin/Lovenox 30 mg SQ daily (WT < 150 kg, CrCl > 10-29 mL/min) *Enoxaparin/Lovenox 30 mg SQ BID (WT < 150 kg, CrCl > 30 mL/min) AND *Sequential Compression Device (SCD) Assessment and Plan Plan INTRACTABLE NV AND ABD PAIN no etiology found on CT scan of abdomen and pelvis , no evidence of diverticulitis, I suspect abdominal pain is related to abdominal wall strain from dry heaving, nausea vomiting probably from either gastritis or opioid withdrawal symptoms continue IV fluids supportive care antiemetics as tolerated add a PPI JOSEPH DUE TO DEHYDRATION continue IV fluids CHRONIC PAIN SYNDROME due to DDD /PERIPHERAL NEUROPATHY w opiate dependence, suspect he may be in opiate wd. VALVULAR HEART DISEASE clinically stable outpatient follow-up HTN continue lisinopril HX ENDOCARDITIS due to ivda (check urine drug screen) DEPRESSION / anxiety - wellbutrin Anticipate discharge home 1-2 days when tolerating p.o. H&P: Quality VTE Deep Vein Thrombosis/Pulmonary Embolism Present on Admission: No
[2018-09-27 18:45] LABS: Amphetamine Screen,Urine Neg (Neg); Barbiturate Screen,Urine Neg (Neg); Cannabinoid Screen,Urine Neg (Neg); Cocaine Screen,Urine Neg (Neg)
[2018-09-27 18:55] LABS: Opiate Screen,Urine Pos (Neg)
[2018-09-27] MEDS: Famotidine 20 MG Tablet PO SCH (20:04)
[2018-09-27] MEDS: buPROPion 150 MG 12 HR Tablet PO SCH (20:04)
[2018-09-27] MEDS: Metoprolol Tartrate 25 MG Tablet PO SCH (20:05)
[2018-09-28] MEDS: Sod Chloride 0.9% Inj 1,000 ML IV.CONT SCH ×2 (01:24→08:50)
[2018-09-28] MEDS: Morphine Sulfate Inj 2 MG/ML Vial IV.PUSH PRN ×4 (02:30→15:34)
[2018-09-28 07:15] LABS: Carbon Dioxide 23.1 meq/L (21.0-32.0); Magnesium 1.8 mg/dL (1.5-2.5); Potassium 4.2 meq/L (3.5-5.1)
[2018-09-28 07:16] LABS: Calcium 7.4 mg/dL (8.5-10.1)
[2018-09-28 07:37] LABS: Albumin 2.8 g/dL (3.4-5.0); Calcium-Albumin Corrected 8.4 mg/dL (8.5-10.1)
[2018-09-28] MEDS: Famotidine 20 MG Tablet PO SCH (08:51)
[2018-09-28] MEDS: Senna/Docusate Sodium 8.6/50 MG Tablet PO SCH (08:51)
[2018-09-28] MEDS: Metoprolol Tartrate 25 MG Tablet PO SCH (08:51)
[2018-09-28] MEDS: buPROPion 150 MG 12 HR Tablet PO SCH (08:51)
[2018-09-28] MEDS: Gabapentin 400 MG Capsule PO SCH ×2 (08:51→12:20)
[2018-09-28] MEDS: Enoxaparin Inj 30 MG/0.3 ML Syringe SQ SCH (08:52)
[2018-09-28] MEDS ORDERED: Lisinopril 20 MG Tablet PO SCH (09:00)
--- NOTE | 2018-09-28 14:33 | P.DS ---
DS: Providers Date of admission: 09/27/18 08:15 Primary care physician: Laila Bautista Brief History from admission: 58-year-old gentleman with history of IV drug abuse and endocarditis 3 years ago presents with intractable nausea vomiting and diarrhea that alternated with severe constipation. Patient states symptoms started yesterday, not associated with any fever, he has had chills. He had mid lower abdominal pain without significant radiation, pain worsened after he had significant dry heaves and vomiting. He denies shortness of breath productive cough coughing up blood or bloody stools or melena history. He denies recent travel or sick contacts he denies recent drug use. 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 Antiemetic support and liquid diet was advanced as tolerated. Patient was eating solid food pain was improved and no further evidence of diarrhea. Patient was complaining of vomiting but no evidence was noted and he had eaten his food without difficulty. Patient was also requesting IV narcotics around the clock. CT scan of abdomen and pelvis is unremarkable labs are much improved, and patient is clinically stable for discharge home I had a lengthy discussion with him regarding diet activity and close follow-up with primary care physician in outpatient GI referral if his symptoms worsen. Suspect he has likely mild gastroenteritis that has resolved. Time Spent with Patient Total time spent providing and/or coordinating discharge services: Greater than 30 minutes Status at Discharge Functional status at discharge: independent ambulation Overall status at discharge: patient is progressing back to baseline Quality: VTE Deep Vein Thrombosis/Pulmonary Embolism Present on Admission: No Exam Narrative Exam Narrative: Awake alert oriented no acute distress Heart S1-S2 regular Lungs clear bilateral no wheeze no rhonchi Abdomen soft nondistended minimal tenderness lower quadrant no guarding rebound rigidity positive bowel sounds Extremities no clubbing cyanosis no edema no calf tenderness peripheral pulses palpable +2 Results Labs on day of discharge: Labs from last 24 hours 09/28/18 09/27/18 06:07 18:15 Sodium 142 Potassium 4.2 D Chloride 115 H D Carbon Dioxide 23.1 Anion Gap 4 L BUN 11 Creatinine 1.20 Estimated GFR 62 L Random Glucose 85 Calcium 7.4 L* D Calcium Adj for Albumin 8.4 L Magnesium 1.8 Albumin 2.8 L D Urine Opiates Screen Pos H Ur Barbiturates Screen Neg Ur Amphetamines Screen Neg U Benzodiazepines Scrn Neg Urine Cocaine Screen Neg U Cannabinoids Screen Neg Preliminary micro results at discharge 09/27/18 08:35 Aerobic Blood Culture - Preliminary Blood - Peripheral No growth in 1 day Anaerobic Blood Culture - Preliminary No growth in 1 day 09/27/18 08:40 Aerobic Blood Culture - Preliminary Blood - Peripheral No growth in 1 day Anaerobic Blood Culture - Preliminary No growth in 1 day Impressions ITS Impressions Abdomen/Pelvis CT 09/27/18 06:58 CONCLUSION: 1. No acute abnormality is identified to explain the clinical symptoms. 2. 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 Discharge Plan Discharge Disposition Patient Disposition: Discharge Home Discharge Condition Condition: Fair Discharge Order Discharge Orders: Discharge Order (Routine); Ordered 09/28/18 Ordered By: Annalee Garcias Physicians Team Attending Provider: Annalee Garcias Rxs /Orders / Referrals /Forms Prescriptions: New omeprazole 20 mg tablet,delayed release (DR/EC) 20 mg PO DAILY Qty: 30 RF: 0 Continue lisinopril 20 mg Tablet 20 mg PO DAILY RF: 0 tramadol 50 mg Tablet 50 mg PO BID RF: 0 gabapentin 800 mg Tablet 800 mg PO TID RF: 0 metoprolol tartrate 25 mg Tablet 12.5 mg PO BID RF: 0 tizanidine [Zanaflex] 2 mg Capsule 2 mg PO TID PRN (Reason: Pain) RF: 0 bupropion HCl [Wellbutrin SR] 150 mg Tablet Sustained-Release 12 Hr 1 tab PO BID RF: 0 Referrals: Laila Bautista [Other] - See Instructions ( Please call the physician's office to book the appointment to be seen within [2-3days]. Your Health Problems: Goals to Promote Your Health: To prevent worsening of your condition To maintain your health at the optimal level Directions to Meet Your Goals: Take your medications as prescribed Follow your dietary instruction Follow activity as directed Keep your appointments as scheduled Take your immunizations and boosters as scheduled If your symptoms worsen call your PCP If no PCP go to Urgent Care or Emergency Room Smoking is dangerous to your health. Avoid second hand smoke. You may reach the 24-hour crisis hotline for domestic abuse at . Please call the physician's office to book the appointment to be seen within [].) Status ED Status: Left Department
== END 2018-09-28 17:19 | disposition home or self-care (01) ==
LOC: PHEDA 05:45 → PHED 05:45 → PH3 09:18
PROVIDERS: ADMIT Internal Medicine; ATTEND Internal Medicine

== ENCOUNTER 2018-10-28 10:44 | Observation (INO) ==
--- NOTE | 2018-10-28 11:14 | XR ---
EXAM DATE: 10/28/2018 11:10 AM EST AGE/SEX: 58 years / Male INDICATIONS: Chest pain. CLINICAL DATA: This is the patient's initial encounter. Patient reports that signs and symptoms have been present for 1 day and indicates a pain score of 8/10. MEDICAL/SURGICAL HISTORY: . endocarditis 3 years ago. None. COMPARISON: [facility] [place]ST 1V SINGLE AP, 08/20/2018. . FINDINGS: No new focal pleural or parenchymal opacities.. The cardiomediastinal contours are unremarkable. Os seous structures are intact. CONCLUSION: 1. No acute abnormality or significant interval change. Electronically signed by: Onesimo Cheek MD Board Certified Radiologist 10/28/2018 11:12 AM EST
[2018-10-28 11:22] LABS: Baso # (Auto) 0.1 th/mm3 (0.0-0.2); Baso % (Auto) 0.7 % (0.0-2.0); Eos # (Auto) 0.2 th/mm3 (0.0-0.4); Eos % (Auto) 1.6 % (0.0-4.0); Hematocrit 44.1 % (39.0-51.0); Hemoglobin 15.1 gm/dL (13.0-17.0); Lymph # (Auto) 0.8 th/mm3 (1.0-4.8); Lymph % (Auto) 7.7 % (9.0-44.0); Mean Corpuscular HGB Conc 34.2 % (32.0-36.0); Mean Corpuscular Hemoglobin 32.2 pg (27.0-34.0); Mean Corpuscular Volume 94.2 fL (80.0-100.0); Mean Platelet Volume 7.9 fL (7.0-11.0); Mono # (Auto) 0.7 th/mm3 (0.0-0.9); Neut # (Auto) 9.2 th/mm3 (1.8-7.7); Platelet Count 235 th/mm3 (150-450); Red Blood Count 4.68 mil/mm3 (4.50-5.90); Red Cell Distribution Width 14.2 % (11.6-17.2); White Blood Count 10.9 th/mm3 (4.0-11.0)
--- NOTE | 2018-10-28 11:35 | ED ---
HPI General Chief Complaint: Chest Pain Stated Complaint: Medical Time Seen by Provider: 10/28/18 11:04 History of Present Illness HPI narrative: This patient complains of chest pain. Started at 5 AM this morning. Describes it as a tightness in the left side of his chest. He does not a fever cough or congestion or abdominal pains. He has history of endocarditis. Has not done IV drugs for years. Severity is moderate. No alleviating factors. Duration 6 hours. No exacerbating factors. Related Data Home Medications Medication Instructions Recorded Confirmed gabapentin 800 mg PO TID 07/01/18 10/28/18 lisinopril 20 mg PO DAILY 07/01/18 10/28/18 metoprolol tartrate 12.5 mg PO BID 07/01/18 10/28/18 tizanidine [Zanaflex] 2 mg PO TID PRN 07/01/18 10/28/18 tramadol 50 mg PO BID 07/01/18 10/28/18 bupropion HCl [Wellbutrin SR] 1 tab PO BID 08/29/18 10/28/18 Previous Rx's Medication Instructions Recorded omeprazole 20 mg PO DAILY #30 tab 09/28/18 Allergies Allergy/AdvReac Type Severity Reaction Status Date / Time No Known Allergies Allergy Verified 08/29/18 11:41 Review of Systems ROS: all other systems reviewed are negative PMFSH Social History Social History Substance History: Past History Second Hand Smoke Exposure: Yes Smoking Status: Former smoker Tobacco Type: Cigarettes How Often Do You Have a Drink Containing Alcohol: Never Recent Travel in [facility] within the Last 8 Weeks: No Recent Out of Country Travel within the Last 8 Weeks: No Substance Abuse Detail Heroin: Substance Use Status: Sustained Remission Immunization History Tetanus Immunization: Unsure Exam Narrative Exam Narrative: GENERAL: Well-nourished, well-developed patient in no apparent distress. SKIN: Focused skin assessment reveals no rash and nodules. Skin is Warm and dry. HEAD: Atraumatic. Normocephalic. EYES: Pupils equal and round. No scleral icterus. No injection or drainage. ENT: No nasal bleeding or discharge. Mucous membranes pink and moist. NECK: Trachea midline. No JVD. CARDIOVASCULAR: Regular rate and rhythm. No murmur appreciated. RESPIRATORY: No accessory muscle use. Clear to auscultation. Breath sounds equal bilaterally. GASTROINTESTINAL: Abdomen soft, non-tender, nondistended. Hepatic and splenic margins not palpable. MUSCULOSKELETAL: No obvious deformities. No clubbing. No cyanosis. No edema. NEUROLOGICAL: Awake and alert. No obvious cranial nerve deficits. Motor grossly within normal limits. Normal speech. PSYCHIATRIC: Appropriate mood and affect; insight and judgment normal. Course Initial Documented Vital Signs Temperature 98.6 F 10/28/18 10:51 Pulse Rate 99 H 10/28/18 10:51 Respiratory Rate 17 10/28/18 10:51 Blood Pressure 126/69 10/28/18 10:51 Pulse Oximetry 100 10/28/18 10:51 Last Documented Vital Signs Temperature 98.6 F 10/28/18 10:51 Pulse Rate 90 10/28/18 13:52 Respiratory Rate 17 10/28/18 13:52 Blood Pressure 113/79 10/28/18 13:52 Pulse Oximetry 97 10/28/18 13:52 Medical Decision Making MDM Narrative Medical decision making narrative: 58-year-old male with 6 hours of chest pain. I do not have any reason to suspect recurrence of endocarditis. He says he has not used IV drugs in years. He has no fever or tachycardia. He did not have this kind of symptom when his diagnosis was made. EKG is not anything alarming. I have ordered x-ray and labs and give him a dose of aspirin and 1 pain pill. workup is negative. Patient will be a 23-hour observation in the chest pain center. Trying a GI cocktail. This may be GI related. Medical Screen Exam Complete: Yes Emergency Medical Condition: Yes Differential Diagnosis Differential Diagnosis: Differential diagnosis includes NM, angina, pericarditis , pleurisy, GERD, anxiety. Medical Records Medical records reviewed: Yes I reviewed the patient's medical records. Lab Data Lab results reviewed: Yes I reviewed the patient's lab results. Lab results narrative: Minor renal insufficiency which is not new otherwise normal labs Result diagrams: 10/28/18 11:00 10/28/18 11:00 Lab Results 10/28/18 10/28/18 10/28/18 Range/Units 11:00 11:00 11:00 WBC 10.9 (4.0-11.0) th/mm3 RBC 4.68 (4.50-5.90) mil/mm3 Hgb 15.1 (13.0-17.0) gm/dL Hct 44.1 (39.0-51.0) % MCV 94.2 (80.0-100.0) fL MCH 32.2 (27.0-34.0) pg MCHC 34.2 (32.0-36.0) % RDW 14.2 (11.6-17.2) % Plt Count 235 (150-450) th/mm3 MPV 7.9 (7.0-11.0) fL Neut % (Auto) 84.0 H (16.0-70.0) % Lymph % (Auto) 7.7 L (9.0-44.0) % Posey % (Auto) 6.0 (0.0-8.0) % Eos % (Auto) 1.6 (0.0-4.0) % Baso % (Auto) 0.7 (0.0-2.0) % Neut # (Auto) 9.2 H (1.8-7.7) th/mm3 Lymph # (Auto) 0.8 L (1.0-4.8) th/mm3 Posey # (Auto) 0.7 (0.0-0.9) th/mm3 Eos # (Auto) 0.2 (0.0-0.4) th/mm3 Baso # (Auto) 0.1 (0.0-0.2) th/mm3 WBC Differential . Differential Comment Auto diff final Sodium 137 (136-145) meq/L Potassium 4.9 (3.5-5.1) meq/L Chloride 107 (98-107) meq/L Carbon Dioxide 23.7 (21.0-32.0) meq/L Anion Gap 6 (5-15) meq/L BUN 23 H (7-18) mg/dL Creatinine 1.38 H (0.60-1.30) mg/dL Estimated GFR 53 L (>89) mL/min Random Glucose 132 H (74-106) mg/dL Calcium 9.1 (8.5-10.1) mg/dL Total Bilirubin 0.5 (0.2-1.0) mg/dL AST 14 L (15-37) U/L ALT 18 (12-78) U/L Alkaline Phosphatase 101 (45-117) U/L Total Creatine Kinase 65 (39-308) U/L Troponin I Less than 0.02 L (0.02-0.05) ng/mL Total Protein 7.6 (6.4-8.2) g/dL Albumin 3.8 (3.4-5.0) g/dL Imaging Data Attestation: I personally reviewed and interpreted this imaging study as follows : My impression: Chest x-ray is normal Radiologist's impression: Chest X-Ray 10/28/18 00:00 CONCLUSION: 1. No acute abnormality or significant interval change. ECG Data EKG Prior to Arrival: No Attestation: I personally reviewed and interpreted this ECG as follows: Prior ECG tracings: not available for review Interpretation: EKG shows a sinus rhythm with a rate of 98. His IN interval is [address] elevation or tippy. [place] is normal. Discharge Plan Discharge Disposition Patient Disposition: Discharge Home Discharge Order Discharge Orders: Discharge Order (Routine); Ordered 10/28/18 Ordered By: Ramu Georges Discharge Details Diagnosis: Atypical chest pain Physicians Team ED Provider: Ramu Georges Primary Care Provider: Primary Care Jazlyn Farley Rxs /Orders / Referrals /Forms Prescriptions: No Action lisinopril 20 mg Tablet 20 mg PO DAILY RF: 0 tramadol 50 mg Tablet 50 mg PO BID RF: 0 gabapentin 800 mg Tablet 800 mg PO TID RF: 0 metoprolol tartrate 25 mg Tablet 12.5 mg PO BID RF: 0 tizanidine [Zanaflex] 2 mg Capsule 2 mg PO TID PRN (Reason: Pain) RF: 0 bupropion HCl [Wellbutrin SR] 150 mg Tablet Sustained-Release 12 Hr 1 tab PO BID RF: 0 omeprazole 20 mg tablet,delayed release (DR/EC) 20 mg PO DAILY Qty: 30 RF: 0 Discharge Instructions Patient Printed Instructions: Chest Pain (ED) Discharge Interventions Interventions: Vital Signs Last Done: 10/28/18 13:52 Status ED Status: With Doctor
[2018-10-28 11:40] LABS: Alanine Aminotransferase 18 U/L (12-78); Albumin 3.8 g/dL (3.4-5.0); Anion Gap 6 meq/L (5-15); Aspartate Aminotransferase 14 U/L (15-37); Blood Urea Nitrogen 23 mg/dL (7-18); Calcium 9.1 mg/dL (8.5-10.1); Carbon Dioxide 23.7 meq/L (21.0-32.0); Chloride 107 meq/L (98-107); Glomerular Filtration Rate 53 mL/min (>89); Glucose,Random 132 mg/dL (74-106); Potassium 4.9 meq/L (3.5-5.1); Sodium 137 meq/L (136-145)
[2018-10-28 11:43] LABS: Alkaline Phosphatase 101 U/L (45-117); Total Protein 7.6 g/dL (6.4-8.2)
[2018-10-28] MEDS ORDERED: Aluminum/Magnesium/Simethacone Susp 30 ML UDC PO ONE (14:40)
--- NOTE | 2018-10-28 15:53 | P.HPCA ---
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 Onset early this morning. Location left anterior chest. Characterized as sharp. Radiation to left shoulder and upper back. Duration constant. No associated symptoms of nausea, vomiting, dyspnea, or diaphoresis. No precipitating or relieving factors. Denies similar pain in the past. No recent illness or injury. Past cardiac testing None Social history Known hypertension. No known coronary artery disease, diabetes, or hyperlipidemia. Former smoker quit 1 year ago. Denies alcohol or recreational drug use. - Diagnosis (1) Atypical chest pain (2) Hypertension (3) Chronic pain syndrome (4) Renal insufficiency Review of Systems All other systems reviewed negative except as stated in [facility] - History History Provided By: Patient - Medical History Medical History: Medical History (Last Updated 10/28/18 @ 17:53 by KELLY Mercer) Degenerative disc disease Diverticulitis GERD (gastroesophageal reflux disease) Back pain Chronic pain Depression Hypertension Mitral regurgitation Neuropathy - Surgical History Surgical History: Surgical History (Last Updated 10/28/18 @ 17:53 by KELLY Mercer) H/O laminectomy - Family History Family History: Family History (Last Reviewed 10/28/18 @ 17:53 by KELLY Mercer) Sister Diabetes Other No history of heart disease - Tobacco History Second Hand Smoke Exposure: Yes Tobacco Use In Past 30 Days: Yes Smoking Status: Former smoker (Quit 1 year ago) Tobacco Type: Cigarettes - Alcohol History How Often Do You Have a Drink Containing Alcohol: Never - Substance Use History Substance History: Past History - Substance Use Type Heroin Status: Sustained Remission - Travel History Recent Travel in the [place] Within the Last 8 Weeks: No Recent Travel Out of the Country Within the Last 8 Weeks: No - Immunization History Tetanus Immunization: Unsure Medications and Allergies Allergies Allergy/AdvReac Type Severity Reaction Status Date / Time No Known Allergies Allergy Verified 08/29/18 11:41 Home Medications Medication Instructions Recorded Confirmed Type gabapentin 800 mg PO TID 07/01/18 10/28/18 History lisinopril 20 mg PO DAILY 07/01/18 10/28/18 History metoprolol tartrate 12.5 mg PO BID 07/01/18 10/28/18 History tizanidine [Zanaflex] 2 mg PO TID PRN 07/01/18 10/28/18 History tramadol 50 mg PO BID 07/01/18 10/28/18 History bupropion HCl [Wellbutrin SR] 1 tab PO BID 08/29/18 10/28/18 History Exam Vital signs: Vital Signs 10/28/18 10:51 10/28/18 13:52 Temperature 98.6 F Pulse Rate 99 H 90 Respiratory Rate 17 17 Blood Pressure 126/69 113/79 Pulse Oximetry 100 97 Intake & Output 10/27/18 10/28/18 10/28/18 18:59 06:59 18:59 Weight 68.039 kg Narrative: GENERAL: Alert WN, WD, NAD, and male who appears older than stated age HEAD: NC, AT CV: RRR, without murmur, rub, gallop. Chest wall tender to palpation. RESP: Diminished ungs throughout bilateral, no crackles, wheeze, or rhonchi, symmetrical chest rise, nonlabored, able to speak in full sentences ABD: Soft, NT, ND, no masses, positive bowel tones EXT: Pulses +2x4, no dependent edema MS: Normal tone x4 extremities, nontender, no obvious deformities, full range of motion NEURO: Motor strength 5/5 PSYCH: A+O x3, flat affect, appropriate speech and mood, questionable insight and judgment SKIN: Normal turgor, normal texture, no lesions, no rashes Results 10/28/18 11:00 10/28/18 11:00 Cardiac Enzymes 10/28/18 Range/Units 11:00 AST 14 L (15-37) U/L Troponin I Less than 0.02 L (0.02-0.05) ng/mL CBC 10/28/18 Range/Units 11:00 WBC 10.9 (4.0-11.0) th/mm3 RBC 4.68 (4.50-5.90) mil/mm3 Hgb 15.1 (13.0-17.0) gm/dL Hct 44.1 (39.0-51.0) % Plt Count 235 (150-450) th/mm3 Neut # (Auto) 9.2 H (1.8-7.7) th/mm3 Lymph # (Auto) 0.8 L (1.0-4.8) th/mm3 [place] # (Auto) 0.7 (0.0-0.9) th/mm3 Eos # (Auto) 0.2 (0.0-0.4) th/mm3 Baso # (Auto) 0.1 (0.0-0.2) th/mm3 Comprehensive Metabolic Panel 10/28/18 Range/Units 11:00 Sodium 137 (136-145) meq/L Potassium 4.9 (3.5-5.1) meq/L Chloride 107 (98-107) meq/L Carbon Dioxide 23.7 (21.0-32.0) meq/L BUN 23 H (7-18) mg/dL Creatinine 1.38 H (0.60-1.30) mg/dL Calcium 9.1 (8.5-10.1) mg/dL AST 14 L (15-37) U/L ALT 18 (12-78) U/L Alkaline Phosphatase 101 (45-117) U/L Total Protein 7.6 (6.4-8.2) g/dL Albumin 3.8 (3.4-5.0) g/dL Intake and Output 10/28/18 10/28/18 10/28/18 06:59 14:59 22:59 Other: Weight 68.039 kg Patient Weight 10/29/18 06:59 Weight 68.039 kg - Imaging and Cardiology Imaging: Impressions Chest X-Ray 10/28/18 00:00 CONCLUSION: 1. No acute abnormality or significant interval change. EKG interpretations - EKG EKG results cardiology: sinus rhythm, normal axis, normal QRS, normal ST/T Caprini VTE Risk Assessment Caprini VTE Risk Assessment: No/Low Risk (score <= 1) Caprini Risk Assessment Model: Point Value = 1 Point Value = 2 Point Value = 3 Point Value = 5 Age 41-60 Minor surgery BMI > 25 kg/m2 Swollen legs Varicose veins or History of unexplained or recurrent spontaneous Oral contraceptives or hormone replacement Sepsis (< 1 month) Serious lung disease, including pneumonia (< 1 month) Abnormal pulmonary function Acute myocardial infarction Congestive heart failure (< 1 month) History of inflammatory bowel disease Medical patient at bed rest Age 61-74 Arthroscopic surgery Major open surgery (> 45 min) Laparoscopic surgery (> 45 min) Malignancy Confined to bed (> 72 hours) Immobilizing plaster cast Central venous access Age >= 75 History of VTE Family history of VTE Factor V Leiden Prothrombin [id number] Lupus anticoagulant Anticardiolipin antibodies Elevated serum homocysteine Heparin-induced thrombocytopenia Other congenital or acquired thrombophilia Stroke (< 1 month) Elective arthroplasty Hip, pelvis, or leg fracture Acute spinal cord injury (< 1 month) Prophylaxis Regimen: Total Risk Factor Score Risk Level Prophylaxis Regimen 0-1 Low Early ambulation 2 Moderate Order ONE of the following: *Sequential Compression Device (SCD) *Heparin 5000 units SQ BID 3-4 Higher Order ONE of the following medications: *Heparin 5000 units SQ TID *Enoxaparin/Lovenox 40 mg SQ daily (WT < 150 kg, CrCl > 30 mL/min) *Enoxaparin/Lovenox 30 mg SQ daily (WT < 150 kg, CrCl > 10-29 mL/min) *Enoxaparin/Lovenox 30 mg SQ BID (WT < 150 kg, CrCl > 30 mL/min) AND/OR *Sequential Compression Device (SCD) 5 or more Highest Order ONE of the following medications: *Heparin 5000 units SQ TID (Preferred with Epidurals) *Enoxaparin/Lovenox 40 mg SQ daily (WT < 150 kg, CrCl > 30 mL/min) *Enoxaparin/Lovenox 30 mg SQ daily (WT < 150 kg, CrCl > 10-29 mL/min) *Enoxaparin/Lovenox 30 mg SQ BID (WT < 150 kg, CrCl > 30 mL/min) AND *Sequential Compression Device (SCD) Assessment and Plan - Assessment (1) Atypical chest pain Code(s): R07.89 - Other chest pain Status: Acute Plan: Admitted chest pain center. Seen and evaluated by Dr. Aaron Ibanez. Rule out ACS with standard chest pain center protocol including 3 sets of EKGs and cardiac enzymes. Obtain d-dimer. Once pulmonary emboli ruled out, monitor on telemetry overnight, and proceed with Lexiscan in a.m. (2) Hypertension Code(s): I10 - Essential (primary) hypertension Status: Chronic Plan: Continue lisinopril and metoprolol. (3) Chronic pain syndrome Code(s): G89.4 - Chronic pain syndrome Status: Chronic Plan: Continue gabapentin. [place] 7.5 mg Q4H prn as needed for pain. (4) Renal insufficiency Code(s): N28.9 - Disorder of kidney and ureter, unspecified Status: Chronic Plan: Follow up with primary care provider. (2) Hypertension Qualifiers: Hypertension type: unspecified Qualified Code(s): I10 - Essential (primary) hypertension
[2018-10-28 17:44] LABS: Creatine Kinase 62 U/L (39-308)
[2018-10-28 20:27] LABS: Creatine Kinase 57 U/L (39-308)
--- NOTE | 2018-10-28 20:51 | ECG ---
Date Performed: 10/28/2018 Time Performed: 11:01:46 PTAGE: 58 years EKG: Sinus rhythm NORMAL ECG PREVIOUS TRACING : 08/20/2018 19.40 Since the previous tracing, no significant change noted DOCTOR: Isiah Plunkett Interpretating Date/Time 10/28/2018 20:49:24
[2018-10-28] MEDS ORDERED: Zolpidem Tartrate 5 MG Tablet PO PRN (21:47)
[2018-10-28] MEDS: buPROPion 150 MG 12 HR Tablet PO SCH (22:12)
[2018-10-28] MEDS: Metoprolol Tartrate 25 MG Tablet PO SCH (22:12)
[2018-10-28] MEDS: Gabapentin 400 MG Capsule PO SCH (22:12)
[2018-10-29] MEDS ORDERED: Regadenoson Inj 0.4 MG/5 ML Syringe IV.PUSH ONE (07:19)
[2018-10-29] MEDS: Metoprolol Tartrate 25 MG Tablet PO SCH (08:38)
[2018-10-29] MEDS: Gabapentin 400 MG Capsule PO SCH ×2 (08:39→13:05)
[2018-10-29] MEDS: buPROPion 150 MG 12 HR Tablet PO SCH (08:39)
[2018-10-29] MEDS ORDERED: Lisinopril 20 MG Tablet PO SCH (09:00)
--- NOTE | 2018-10-29 10:34 | NM ---
EXAM DATE: 10/29/2018 10:30 AM EST AGE/SEX: 58 years / Male INDICATIONS:Angina. . Left sided chest pain. CLINICAL DATA: This is the patient's initial encounter. Patient reports that signs and symptoms have been present for 1 day and indicates a pain score of 1/10. MEDICAL/SURGICAL HISTORY: Gastroesophageal reflux disease. Hypertension. . Laminectomy. COMPARISON: No prior exams available for comparison. DOSE: 8.5 mCi Tc 99m Myoview at rest 26.8 mCi [id number] at stress 0.4 mg Lexiscan STRESS SYMPTOMS: Flushed. EJECTION FRACTION: 57 % TECHNIQUE: The patient underwent pharmacologic stress with infusion of prescribed dose. Continuous ECG tracing was monitored during stress. Gated SPECT imaging was performed after stress and conventi onal SPECT imaging was performed at rest. The examination was performed on a SPECT/CT scanner, both attenuation and non-corrected datasets were reviewed. FINDINGS: Distribution: The maximum perfused segment at stress is in the anterolateral wall. Perfusion Study: The pattern of perfusion at stress is within normal limits except for a fixed defe ct low inferoapical wall probably due to attenuation artifact. Gated Study: There are intact wall motion and wall thickening without hypokinetic or dyskinetic segm ents. The ejection fraction is calculated at 57%. RISK CATEGORY: Low (<1% Annual Mortality Rate) CONCLUSION: 1. No appreciable ischemia. Electronically signed by: Jane Wheeler MD Board Certified Radiologist 10/29/2018 10:32 AM EST
--- NOTE | 2018-10-29 10:39 | P.PNCA ---
Subjective Interval history: 58-year-old gentleman seen and evaluated by the nurse practitioner yesterday and subsequently by the PA this morning and then seen and examined personally. His history is as documented. He is followed by primary care physician and a insurance agency manager in his home area where he is followed for known mitral regurgitation secondary to endocarditis several years ago. He has been thoroughly evaluated using chest pain center protocol including nuclear scanning this morning which shows no evidence of ischemia. He will therefore be discharged to return to his home for further follow-up on an outpatient basis with his primary care physician. Medications and Allergies Active Medications: Active Medications Hydrocodone Bitart/Acetaminophen ([place] 7.5/325) 1 tab PO Q4H PRN PRN Reason: PAIN SCALE 1 TO 7 Last Admin: 10/29/18 08:38 Dose: 1 tab Albuterol (Duoneb Neb (Prn)) 1 ampul NEB ONCE PRN PRN Reason: SHORTNESS OF BREATH/WHEEZING Bupropion HCl (Wellbutrin Sr) 150 mg PO BID [facility] Last Admin: 10/29/18 08:39 Dose: 150 mg Gabapentin (Neurontin) 800 mg PO TID [facility] Last Admin: 10/29/18 08:39 Dose: 800 mg Lisinopril (Prinivil) 20 mg PO DAILY [facility] Last Admin: 10/29/18 08:39 Dose: 20 mg Metoprolol Tartrate (Lopressor) 12.5 mg PO BID [facility] Last Admin: 10/29/18 08:38 Dose: 12.5 mg Nitroglycerin (Nitrostat Sl) 0.4 mg SL Q5M PRN PRN Reason: CHEST PAIN Ondansetron HCl (Zofran Inj) 4 mg IV.PUSH Q6H PRN PRN Reason: NAUSEA Sodium Chloride (Ns Flush) 2 ml IV.FLUSH BID [facility] Last Admin: 10/29/18 08:39 Dose: 2 ml Sodium Chloride (Ns Flush) 2 ml IV.FLUSH PRN PRN PRN Reason: FLUSH AFTER USING IV ACCESS Tizanidine HCl (Zanaflex) 2 mg PO TID PRN PRN Reason: MUSCLE SPASM Tramadol HCl (Ultram) 50 mg PO BID PRN PRN Reason: PAIN SCALE 1-10 Zolpidem Tartrate (Ambien) 5 mg PO HS PRN PRN Reason: SLEEP Last Admin: 10/28/18 22:12 Dose: 5 mg Allergies Allergy/AdvReac Type Severity Reaction Status Date / Time No Known Allergies Allergy Verified 08/29/18 11:41 Home Medications Medication Instructions Recorded Confirmed Type gabapentin 800 mg PO TID 07/01/18 10/28/18 History lisinopril 20 mg PO DAILY 07/01/18 10/28/18 History metoprolol tartrate 12.5 mg PO BID 07/01/18 10/28/18 History tizanidine [Zanaflex] 2 mg PO TID PRN 07/01/18 10/28/18 History tramadol 50 mg PO BID 07/01/18 10/28/18 History bupropion HCl [Wellbutrin SR] 1 tab PO BID 08/29/18 10/28/18 History Physical Exam Vital signs: Vital Signs 10/28/18 10:51 10/28/18 13:52 10/28/18 17:07 Temperature 98.6 F Pulse Rate 99 H 90 75 Respiratory Rate 17 17 17 Blood Pressure 126/69 113/79 145/75 H Pulse Oximetry 100 97 98 10/28/18 19:21 10/28/18 20:00 10/28/18 21:16 Temperature 97.9 F Pulse Rate 84 98 H 91 H Respiratory Rate 20 20 Blood Pressure 144/93 H 131/80 Pulse Oximetry 98 100 10/28/18 23:18 10/29/18 03:18 10/29/18 07:29 Temperature 97.4 F L 97.7 F 98.2 F Pulse Rate 85 79 73 Respiratory Rate 20 16 20 Blood Pressure 94/60 L 92/53 L 117/74 Pulse Oximetry 97 98 95 10/29/18 08:00 Temperature Pulse Rate 73 Respiratory Rate Blood Pressure Pulse Oximetry Intake & Output 10/28/18 10/29/18 10/29/18 18:59 06:59 18:59 Weight 68.039 kg 63.6 kg Other: Weight On Admission 63.6 kg Narrative: Somewhat frail-appearing 58-year-old male seen in the radiology recovery area Neck supple no JVD masses nodes or bruits Chest clear to auscultation with no rales wheezes or rhonchi Cardiovascular the rhythm is regular there are no gallops or rubs there is a soft 2/6 systolic murmur best heard in the mitral area consistent with his history of known mitral regurgitation. Extremities reveal no clubbing cyanosis edema no petechia or other stigmata of endocarditis. Results 10/28/18 11:00 10/28/18 11:00 Cardiac Enzymes 10/28/18 10/28/18 10/28/18 Range/Units 11:00 17:00 19:29 AST 14 L (15-37) U/L Troponin I Less than 0.02 L Less than 0.02 L Less than 0.02 L (0.02-0.05) ng/mL CBC 10/28/18 Range/Units 11:00 WBC 10.9 (4.0-11.0) th/mm3 RBC 4.68 (4.50-5.90) mil/mm3 Hgb 15.1 (13.0-17.0) gm/dL Hct 44.1 (39.0-51.0) % Plt Count 235 (150-450) th/mm3 Neut # (Auto) 9.2 H (1.8-7.7) th/mm3 Lymph # (Auto) 0.8 L (1.0-4.8) th/mm3 [place] # (Auto) 0.7 (0.0-0.9) th/mm3 Eos # (Auto) 0.2 (0.0-0.4) th/mm3 Baso # (Auto) 0.1 (0.0-0.2) th/mm3 Comprehensive Metabolic Panel 10/28/18 Range/Units 11:00 Sodium 137 (136-145) meq/L Potassium 4.9 (3.5-5.1) meq/L Chloride 107 (98-107) meq/L Carbon Dioxide 23.7 (21.0-32.0) meq/L BUN 23 H (7-18) mg/dL Creatinine 1.38 H (0.60-1.30) mg/dL Calcium 9.1 (8.5-10.1) mg/dL AST 14 L (15-37) U/L ALT 18 (12-78) U/L Alkaline Phosphatase 101 (45-117) U/L Total Protein 7.6 (6.4-8.2) g/dL Albumin 3.8 (3.4-5.0) g/dL Intake and Output 10/28/18 10/29/18 10/29/18 22:59 06:59 14:59 Other: Weight 63.6 kg Weight On Admission 63.6 kg - Imaging and Cardiology Imaging: Impressions Chest X-Ray 10/28/18 00:00 CONCLUSION: 1. No acute abnormality or significant interval change. Myocardial Perfusion Scan Nuc Med 10/29/18 07:19 CONCLUSION: 1. No appreciable ischemia. Assessment and Plan - Assessment (1) Atypical chest pain Code(s): R07.89 - Other chest pain Status: Acute Plan: Admitted chest pain center. Seen and evaluated by Dr. Aaron Ibanez. Rule out ACS with standard chest pain center protocol including 3 sets of EKGs and cardiac enzymes. Obtain d-dimer. Once pulmonary emboli ruled out, monitor on telemetry overnight, and proceed with Lexiscan in a.m. Addendum: Patient has been completely ruled out including a nuclear stress test which shows no indication of ischemia. He will therefore be discharged back to the care of his primary care physician in the [place] area. (2) Hypertension Code(s): I10 - Essential (primary) hypertension Status: Chronic Plan: Continue lisinopril and metoprolol. (3) Chronic pain syndrome Code(s): G89.4 - Chronic pain syndrome Status: Chronic Plan: Continue gabapentin. [place] 7.5 mg Q4H prn as needed for pain. (4) Renal insufficiency Code(s): N28.9 - Disorder of kidney and ureter, unspecified Status: Chronic Plan: Follow up with primary care provider. (2) Hypertension Qualifiers: Hypertension type: unspecified Qualified Code(s): I10 - Essential (primary) hypertension
--- NOTE | 2018-10-29 10:43 | ECG ---
Date Performed: 10/28/2018 Time Performed: 20:14:36 PTAGE: 58 years EKG: Sinus rhythm NORMAL ECG PREVIOUS TRACING : 10/28/2018 19.33 DOCTOR: Eric Foley Interpretating Date/Time 10/29/2018 10:41:35
--- NOTE | 2018-10-29 10:43 | ECG ---
Date Performed: 10/28/2018 Time Performed: 19:33:22 PTAGE: 58 years EKG: Sinus rhythm NORMAL ECG PREVIOUS TRACING : 10/28/2018 17.04 DOCTOR: Eric Foley Interpretating Date/Time 10/29/2018 10:41:45
--- NOTE | 2018-10-29 10:43 | ECG ---
Date Performed: 10/28/2018 Time Performed: 17:04:56 PTAGE: 58 years EKG: Sinus rhythm NORMAL ECG PREVIOUS TRACING : 10/28/2018 11.01 DOCTOR: Eric Foley Interpretating Date/Time 10/29/2018 10:42:07
--- NOTE | 2018-10-29 10:44 | TR ---
Date Performed: 10/29/2018 Time Performed: 09:32:19 DOCTOR: Eric Foley DRUG LIST: CLINICAL HISTORY: REASON FOR TEST: REASON FOR ENDING: OBSERVATION: CONCLUSION: Lexiscan stress test was performed under standard four minute protocol. Radionuclide was injected one minute prior to ending the test. No electrocardiographic abormalities were present to suggest ischemia. Nuclear imaging and interpretation are pending. COMMENTS:
== END 2018-10-29 14:28 | disposition home or self-care (01) ==
LOC: NEPC 10:44 → NEDA 10:44 → NEPGCP 19:49
PROVIDERS: ADMIT Internal Medicine Cardiovascular Disease; ATTEND Internal Medicine Cardiovascular Disease
CPT/HCPCS: 71010; 71045; 78452; 80053; 82550; 84484; 85025; 85379; 93005; 93017; 99285; A9502; G0378; J2785; Q9969